=== PATIENT | female | born 1940 | race Caucasian/White ===

== ENCOUNTER 2023-12-22 20:19 | Inpatient (IN) | payer MEDICARE, SELFPAY ==
[2023-12-22] VITALS (24 sets, daily range): BP systolic 101–132; BP diastolic 53–71; PULSE 84–100; RESP 14–23; TEMP 36.4–37.8; O2SAT 95–98; BMI 36.3; BMI 28.1
--- NOTE | 2023-12-22 20:20 | ECG_ITS ---
APPROVED REPORT Exam: Resting ECG HR:104 bpm ECG Measurements Heart Rate 104 AXES DC 163 P 27 QRSd 105 QRS 16 QT 340 T 21 QTc 400 Conclusion SINUS TACHYCARDIA INFERIOR MYOCARDIAL INFARCTION , PROBABLY OLD [40+ ms Q WAVE AND/OR ST/T ABNORMALITY IN II/aVF] ABNORMAL ECG No STEMI Electronically signed by : SRIDHAR NEGRON, 12/23/2023 03:27:28
--- NOTE | 2023-12-22 20:34 | ED_ITS ---
Discharge Plan Disposition Patient Disposition: Admitted Chief Complaint: Weakness Prescriptions Prescriptions: No Action amlodipine 5 MG tablet 5 mg PO DAILY aspirin 81 MG tablet,delayed release (DR/EC) 81 mg PO DAILY pravastatin 20 MG tablet 20 mg PO DAILY benazepril 10 MG tablet 10 mg PO DAILY insulin NPH and regular human 100 UNIT/ML insulin pen 18 unit SQ DAILY sitagliptin phosphate 100 MG tablet 100 mg PO DAILY Clinical Impressions Clinical Impression: Acute UTI, Anemia, Adult failure to thrive, CULLEN (acute kidney injury), Uremia, Elevated troponin Print Language Print Language: Mongolian Discharge ED Provider: Kavon Booker General Adult HPI <RACHEL Bradley - Last Filed: 12/22/23 22:55> General Chief complaint: Weakness Stated complaint: fall Time Seen by Provider: 12/22/23 20:21 History of Present Illness HPI narrative: Patient presents after being found down. Last known well reportedly was 2 days ago. Patient herself on arrival denies chest pain fever chills hemoptysis hematochezia melena hematemesis pain anywhere difficulty breathing headache any alteration in senses. She follows all commands but appears to be globally weak. She states that the last thing that she remembers is that she sat down on the couch to watch TV and cannot recall much after that. Patient does have visible evidence of long-term self-neglect including very long fingernails very poor hygiene. Patient also has a longstanding history of incontinence and wears adult diapers. Related Data Home Medications ?Medication ?Instructions ?Recorded ?Confirmed amlodipine 5 mg tablet 5 mg PO DAILY bp 06/22/19 07/12/19 aspirin 81 mg tablet,delayed 81 mg PO DAILY Blood thinner 06/22/19 07/12/19 release benazepril 10 mg tablet 10 mg PO DAILY bp 06/22/19 07/12/19 insulin NPH-regular 70-30 U-100 18 unit SQ DAILY Diabetes 06/22/19 07/12/19 insulin 100 unit/mL subcutaneous pen pravastatin 20 mg tablet 20 mg PO DAILY Cholesterol 06/22/19 07/12/19 sitagliptin phosphate 100 mg tablet 100 mg PO DAILY Diabetes 06/22/19 07/12/19 Allergies Allergy/AdvReac Type Severity Reaction Status Date / Time No Known Allergies Allergy Verified 07/12/19 08:11 PFSH <RACHEL Bradley - Last Filed: 12/22/23 22:55> FORMERLY [facility], 1928–1983 Disclaimer: The information contained in this section may have been updated after the patient was seen, as this information can be updated by other users. Social History Smoking Status: Unknown if ever smoked alcohol intake: never current occupational status: retired Travel in the last 8 weeks: None housing: house current occupational exposures/hazards: No caffeine: Yes <RACHEL Bradley - Last Filed: 12/22/23 22:55> ROS Obtained: Yes Systems reviewed as appropriate & no additional complaints except as documented Physical Exam <RACHEL Bradley - Last Filed: 12/22/23 22:55> General General appearance: alert and in no apparent distress Head Head exam: atraumatic and normal inspection Eye Eye exam: Present normal appearance, PERRL and EOMI ENT ENT exam: Present mucous membranes dry and TM's normal bilaterally; Absent normal exam or normal oropharynx (Patient has significant extensive dental caries but no obvious abscess. Patient is profoundly dry with dry mucous membranes and oropharynx) Neck Neck exam: Present normal inspection and full ROM; Absent tenderness Respiratory Respiratory exam: Present normal lung sounds bilaterally; Absent respiratory distress or wheezes Cardiovascular Cardiovascular exam: Present regular rate, normal rhythm, normal heart sounds, +S1 and +S2 Abdominal Exam Abdominal exam: Present soft and normal bowel sounds; Absent distention, tenderness, guarding, rebound or rigidity External exam: Present other (Patient had a diarrhea and urine soaked adult diaper that was cut away. External genitalia appear to be normal with no obvious discharge) Extremities Exam Extremities exam: Present full ROM; Absent normal inspection (Patient has extraordinarily long nails with lots of chronic debris noted) or tenderness Back Exam Back exam: Present normal inspection and full ROM; Absent tenderness Neurological Exam Neurological exam: Present alert, oriented X3 and CN II-XII intact Psychiatric Psychiatric exam: Present normal affect and normal mood Skin Skin exam: Present dry and intact Medical Decision Making <RACHEL Bradley - Last Filed: 12/22/23 22:55> Medical Records Medical records reviewed: Yes I reviewed the patient's medical records. Edin Inquiry Pt receiving controlled substance: No Vital Signs: 12/22/23 20:19 12/22/23 21:34 12/22/23 23:03 Temperature 100.1 F H 99.6 F 97.6 F Temperature Source Rectal Oral Oral Pulse Rate 84 90 Pulse Rate [Left] 95 H Respiratory Rate 16 14 16 TAR Vitals Timing Pre-Blood Vitals Blood Pressure 107/61 L 127/67 Blood Pressure [Right Arm] 110/61 Blood Pressure Mean 87 Blood Pressure Mean [Right Arm] 77 Blood Pressure Source Automatic Cuff Blood Pressure Position Sitting 02 Sat by Pulse Oximetry 95 98 97 Oxygen Delivery Method Room Air Room Air 12/22/23 23:08 12/22/23 23:13 12/22/23 23:18 Temperature 97.6 F 97.5 F L 97.6 F Temperature Source Tympanic Tympanic Pulse Rate 90 89 88 Pulse Rate [Left] Respiratory Rate 16 18 17 TAR Vitals Timing 5 Minute 10 Minute 15 Minute Blood Pressure 127/66 113/64 117/59 L Blood Pressure [Right Arm] Blood Pressure Mean 86 80 78 Blood Pressure Mean [Right Arm] Blood Pressure Source Automatic Cuff Automatic Cuff Automatic Cuff Blood Pressure Position Sitting Sitting 02 Sat by Pulse Oximetry 96 97 Oxygen Delivery Method 12/22/23 23:33 Temperature 97.7 F Temperature Source Tympanic Pulse Rate 88 Pulse Rate [Left] Respiratory Rate 17 TAR Vitals Timing 30 Minute Blood Pressure 116/63 Blood Pressure [Right Arm] Blood Pressure Mean 80 Blood Pressure Mean [Right Arm] Blood Pressure Source Automatic Cuff Blood Pressure Position 02 Sat by Pulse Oximetry 97 Oxygen Delivery Method Lab Data Lab results reviewed: Yes I reviewed the patient's lab results. Lab Results 12/22/23 20:19: WBC 7.8, RBC 2.12 L, Hgb 6.5 L*, Hct 19.7 L*, MCV 92.6, MCH 30.4, MCHC 32.8, RDW 19.5 H, Plt Count 168, MPV 8.7, Neut % (Auto) 71.5, Lymph % (Auto) 23.4, [place] % (Auto) 4.2, Eos % (Auto) 0.5, Baso % (Auto) 0.3, Neut # (Auto) 5.6, Lymph # (Auto) 1.8, [place] # (Auto) 0.3, Eos # (Auto) 0.0, Baso # (Auto) 0.0, Sodium 144, Potassium 4.4, Chloride 111 H, Carbon Dioxide 17 L, A nion Gap 20.4 H, BUN 80 H, Creatinine 3.60 H, Estimated Creat Clear 14, E stimated GFR 12 L*, Est GFR ( Amer) 15 L*, Glucose 106 H, Lactate 0.9, C alcium 10.5 H, Magnesium 2.0, Total Bilirubin 0.7, AST 21, ALT 10 L, Alkaline Phosphatase 65, Total Creatine Kinase 34, Troponin I 0.07 H, Total Protein 7.2, Albumin 3.2 L, Globulin 4.0 H, Albumin/Globulin Ratio 0.8 L, Procalcitonin 0.155, Blood Type Confirm A Negative 12/22/23 20:53: Urine Color Yellow, Urine Appearance Clear, Urine pH 7.0, Ur Specific [place] 1.015, Urine Protein 2+, Urine Glucose (UA) Negative, Urine Ketones Trace, Urine Blood 2+, Urine Nitrate Negative, Urine Bilirubin Negative, Urine Urobilinogen 0.2, Ur Leukocyte Esterase 3+ A, Urine RBC 20-50, Urine WBC Tntc, Ur Squamous Epith Cells 20-50, Urine Bacteria 4+ 12/22/23 21:25: Blood Type A Negative, Antibody Screen Negative, Crossmatch (AHG) See Detail 12/22/23 22:50: Stool Occult Blood Negative 12/22/23 20:19 12/22/23 20:19 Orders (Tests/Meds): ED MEDICATIONS Generic Name Dose Route Start Last Admin Trade Name Freq PRN Reason Stop Dose Admin Sodium Chloride 250 mls @ 25 mls/hr 12/22/23 21:15 12/22/23 23:03 Sod Chlor 0.9% 250ml Bag IV 12/23/23 21:14 25 mls/hr .Q10H CECELIA Administration Sodium Chloride 10 ml 12/22/23 22:27 Sodium Chloride 0.9% 10ml Vial IV 01/21/24 22:26 NEEDED PRN dilute protonix Discontinued Medications Generic Name Dose Route Start Last Admin Trade Name Freq PRN Reason Stop Dose Admin Sodium Chloride 1,000 mls @ 999 mls/hr 12/22/23 20:34 12/22/23 20:58 Sod Chlor 0.9% 1000ml Bag IV 12/22/23 21:34 999 mls/hr .Q1H1M ONE Administration Ceftriaxone Sodium 1 gm/ 50 mls @ 100 mls/hr 12/22/23 22:30 12/22/23 22:44 Sodium Chloride IV 12/22/23 22:59 100 mls/hr ONCE ONE Administration Pantoprazole Sodium 40 mg 12/22/23 22:27 12/22/23 22:44 Pantoprazole 40mg Vial IV 12/22/23 22:28 40 mg ONCE ONE Administration ORDERS Category Date Time Status Transfuse RBC's [Red Blood Cells] Stat BBK 12/22/23 21:25 Results Type and Screen Stat BBK 12/22/23 21:[address] abdomen pelvis wo con Stat Cat Scan 12/22/23 22:[address] chest wo con Stat Cat Scan 12/22/23 22:[address] head/brain wo con Stat Cat Scan 12/22/23 20:35 Completed POCUS Point of Care (ER Only) Stat Exams 12/22/23 22:50 Taken CBC w/Auto Diff [Complete Blood Count Auto Diff] Stat Lab 12/22/23 20:19 Completed CK [Creatine Kinase] Stat Lab 12/22/23 20:19 Completed CMP [Comprehensive Metabolic Panel] Stat Lab 12/22/23 20:19 Completed Lactic Acid Stat Lab 12/22/23 20:19 Completed Magnesium Stat Lab 12/22/23 20:19 Completed Occult Blood,Stool Stat Lab 12/22/23 22:50 Completed Procalcitonin Stat Lab 12/22/23 20:19 Completed Trop I [Troponin I] Stat Lab 12/22/23 20:19 Completed Troponin I Q3H Lab 12/22/23 23:37 Received Troponin I Q3H Lab 12/23/23 02:45 Ordered UA [Urinalysis and Microscopic] Stat Lab 12/22/23 20:53 Completed Urine Culture Stat Micro 12/22/23 20:53 Received HEART Score History (anamnesis): Slightly suspicious ECG: Normal Age: >65 years Risk factors: Atherosclerosis history Troponin: </= normal limit HEART Score: 4 Medical Decision Narrative: In summary patient is a 83-year-old female who presents to the emergency department for evaluation of found down and acute functional decline. Patient is initially normotensive at 110/61 with a heart rate of 95 satting at 95% on room air breathing 16 times a minute upon arrival, with a temperature of 100.1 on arrival. Physical exam shows evidence of longstanding self-neglect but acutely shows that patient has been stuck fortunately on a couch instead of the floor for at least 2 days. Patient also has chronic right sided frozen shoulder that is known with limited passive and active range of motion due to that as well. Patient presented with wearing and adult diaper to overflowing of both urine and stool however it was of normal color and caliber and no evidence of melena or hematochezia. Physical exam reveals some pressure injury to her buttocks along with some skin breakdown from sitting in a wet environment for 2 days but no obvious other trauma ecchymosis or abrasions. Patient moves all 4 extremities but is extraordinarily weak with no focal neurologic findings. Differential diagnosis includes CVA versus ACS versus PE versus infection etc. Initial workup will be conducted with hematologic labs CT scan of the head without contrast plain film chest x-ray twelve-lead EKG catheterized urine specimen. Initial interventions include crystalloid bolus Tylenol type and screen. Initial workup reviewed by me shows that the CT scan of her head via my informal interpretation prior to radiology read shows no acute processes, patient actually has a creatinine of 3.6 with no known recent normal as we have no data to review with a BUN of 80 and a GFR of 12 initial troponin of 0.07 which is likely secondary to renal failure and her urinary dipstick showed 2+ blood with 3+ leukocyte esterase but negative nitrites and her microscopic exam showed 20-50 red blood cells too numerous to count white cells and 4+ bacteria. Stool for occult blood is still pending. CT scan of chest and abdomen have been ordered without contrast given her renal function. Upon repeat evaluation patient is actually more interactive. Given this no evidence of hemodynamic instability and no evidence of GI bleed, despite her renal failure believe that this is likely acute on chronic as she has no electrolyte abnormalities including normal potassium normal magnesium thus no evidence for need of emergent dialysis. CT scan of the chest abdomen pelvis is pending at the time of handoff to Dr. Bermudez 2300 hrs. <Kavon Booker MD - Last Filed: 12/22/23 23:11> Vital Signs: 12/22/23 20:19 12/22/23 21:34 12/22/23 23:03 Temperature 100.1 F H 99.6 F 97.6 F Temperature Source Rectal Oral Oral Pulse Rate 84 90 Pulse Rate [Left] 95 H Respiratory Rate 16 14 16 TAR Vitals Timing Pre-Blood Vitals Blood Pressure 107/61 L 127/67 Blood Pressure [Right Arm] 110/61 Blood Pressure Mean 87 Blood Pressure Mean [Right Arm] 77 Blood Pressure Source Automatic Cuff Blood Pressure Position Sitting 02 Sat by Pulse Oximetry 95 98 97 Oxygen Delivery Method Room Air Room Air 12/22/23 23:08 12/22/23 23:13 12/22/23 23:18 Temperature 97.6 F 97.5 F L 97.6 F Temperature Source Tympanic Tympanic Pulse Rate 90 89 88 Pulse Rate [Left] Respiratory Rate 16 18 17 TAR Vitals Timing 5 Minute 10 Minute 15 Minute Blood Pressure 127/66 113/64 117/59 L Blood Pressure [Right Arm] Blood Pressure Mean 86 80 78 Blood Pressure Mean [Right Arm] Blood Pressure Source Automatic Cuff Automatic Cuff Automatic Cuff Blood Pressure Position Sitting Sitting 02 Sat by Pulse Oximetry 96 97 Oxygen Delivery Method 12/22/23 23:33 Temperature 97.7 F Temperature Source Tympanic Pulse Rate 88 Pulse Rate [Left] Respiratory Rate 17 TAR Vitals Timing 30 Minute Blood Pressure 116/63 Blood Pressure [Right Arm] Blood Pressure Mean 80 Blood Pressure Mean [Right Arm] Blood Pressure Source Automatic Cuff Blood Pressure Position 02 Sat by Pulse Oximetry 97 Oxygen Delivery Method Lab Data Lab Results 12/22/23 20:19: WBC 7.8, RBC 2.12 L, Hgb 6.5 L*, Hct 19.7 L*, MCV 92.6, MCH 30.4, MCHC 32.8, RDW 19.5 H, Plt Count 168, MPV 8.7, Neut % (Auto) 71.5, Lymph % (Auto) 23.4, [place] % (Auto) 4.2, Eos % (Auto) 0.5, Baso % (Auto) 0.3, Neut # (Auto) 5.6, Lymph # (Auto) 1.8, [place] # (Auto) 0.3, Eos # (Auto) 0.0, Baso # (Auto) 0.0, Sodium 144, Potassium 4.4, Chloride 111 H, Carbon Dioxide 17 L, A nion Gap 20.4 H, BUN 80 H, Creatinine 3.60 H, Estimated Creat Clear 14, E stimated GFR 12 L*, Est GFR ( Amer) 15 L*, Glucose 106 H, Lactate 0.9, C alcium 10.5 H, Magnesium 2.0, Total Bilirubin 0.7, AST 21, ALT 10 L, Alkaline Phosphatase 65, Total Creatine Kinase 34, Troponin I 0.07 H, Total Protein 7.2, Albumin 3.2 L, Globulin 4.0 H, Albumin/Globulin Ratio 0.8 L, Procalcitonin 0.155, Blood Type Confirm A Negative 12/22/23 20:53: Urine Color Yellow, Urine Appearance Clear, Urine pH 7.0, Ur Specific [place] 1.015, Urine Protein 2+, Urine Glucose (UA) Negative, Urine Ketones Trace, Urine Blood 2+, Urine Nitrate Negative, Urine Bilirubin Negative, Urine Urobilinogen 0.2, Ur Leukocyte Esterase 3+ A, Urine RBC 20-50, Urine WBC Tntc, Ur Squamous Epith Cells 20-50, Urine Bacteria 4+ 12/22/23 21:25: Blood Type A Negative, Antibody Screen Negative, Crossmatch (AHG) See Detail 12/22/23 22:50: Stool Occult Blood Negative Orders (Tests/Meds): ED MEDICATIONS Generic Name Dose Route Start Last Admin Trade Name Freq PRN Reason Stop Dose Admin Sodium Chloride 250 mls @ 25 mls/hr 12/22/23 21:15 12/22/23 23:03 Sod Chlor 0.9% 250ml Bag IV 12/23/23 21:14 25 mls/hr .Q10H CECELIA Administration Sodium Chloride 10 ml 12/22/23 22:27 Sodium Chloride 0.9% 10ml Vial IV 01/21/24 22:26 NEEDED PRN dilute protonix Discontinued Medications Generic Name Dose Route Start Last Admin Trade Name Freq PRN Reason Stop Dose Admin Sodium Chloride 1,000 mls @ 999 mls/hr 12/22/23 20:34 12/22/23 20:58 Sod Chlor 0.9% 1000ml Bag IV 12/22/23 21:34 999 mls/hr .Q1H1M ONE Administration Ceftriaxone Sodium 1 gm/ 50 mls @ 100 mls/hr 12/22/23 22:30 12/22/23 22:44 Sodium Chloride IV 12/22/23 22:59 100 mls/hr ONCE ONE Administration Pantoprazole Sodium 40 mg 12/22/23 22:27 12/22/23 22:44 Pantoprazole 40mg Vial IV 12/22/23 22:28 40 mg ONCE ONE Administration ORDERS Category Date Time Status Transfuse RBC's [Red Blood Cells] Stat BBK 12/22/23 21:25 Results Type and Screen Stat BBK 12/22/23 21:[address] abdomen pelvis wo con Stat Cat Scan 12/22/23 22:[address] chest wo con Stat Cat Scan 12/22/23 22:[address] head/brain wo con Stat Cat Scan 12/22/23 20:35 Completed POCUS Point of Care (ER Only) Stat Exams 12/22/23 22:50 Taken CBC w/Auto Diff [Complete Blood Count Auto Diff] Stat Lab 12/22/23 20:19 Completed CK [Creatine Kinase] Stat Lab 12/22/23 20:19 Completed CMP [Comprehensive Metabolic Panel] Stat Lab 12/22/23 20:19 Completed Lactic Acid Stat Lab 12/22/23 20:19 Completed Magnesium Stat Lab 12/22/23 20:19 Completed Occult Blood,Stool Stat Lab 12/22/23 22:50 Completed Procalcitonin Stat Lab 12/22/23 20:19 Completed Trop I [Troponin I] Stat Lab 12/22/23 20:19 Completed Troponin I Q3H Lab 12/22/23 23:37 Received Troponin I Q3H Lab 12/23/23 02:45 Ordered UA [Urinalysis and Microscopic] Stat Lab 12/22/23 20:53 Completed Urine Culture Stat Micro 12/22/23 20:53 Received ECG Data Tracing #1: Independently turned by me rate is 104, rhythm is regular, axis normal, no ST elevation in anatomical contiguous leads, QTc 400 and HEART Score HEART Score: 4 Medical Decision Narrative: In summary patient is a 83-year-old female who presents to the emergency department for evaluation of found down and acute functional decline. Patient is initially normotensive at 110/61 with a heart rate of 95 satting at 95% on room air breathing 16 times a minute upon arrival, with a temperature of 100.1 on arrival. Physical exam shows evidence of longstanding self-neglect but acutely shows that patient has been stuck fortunately on a couch instead of the floor for at least 2 days. Patient also has chronic right sided frozen shoulder that is known with limited passive and active range of motion due to that as well. Patient presented with wearing and adult diaper to overflowing of both urine and stool however it was of normal color and caliber and no evidence of melena or hematochezia. Physical exam reveals some pressure injury to her buttocks along with some skin breakdown from sitting in a wet environment for 2 days but no obvious other trauma ecchymosis or abrasions. Patient moves all 4 extremities but is extraordinarily weak with no focal neurologic findings. Differential diagnosis includes CVA versus ACS versus PE versus infection etc. Initial workup will be conducted with hematologic labs CT scan of the head without contrast plain film chest x-ray twelve-lead EKG catheterized urine specimen. Initial interventions include crystalloid bolus Tylenol type and screen. Initial workup reviewed by me shows that the CT scan of her head via my informal interpretation prior to radiology read shows no acute processes, patient actually has a creatinine of 3.6 with no known recent normal as we have no data to review with a BUN of 80 and a GFR of 12 initial troponin of 0.07 which is likely secondary to renal failure and her urinary dipstick showed 2+ blood with 3+ leukocyte esterase but negative nitrites and her microscopic exam showed 20-50 red blood cells too numerous to count white cells and 4+ bacteria. Stool for occult blood is still pending. CT scan of chest and abdomen have been ordered without contrast given her renal function. Upon repeat evaluation patient is actually more interactive. Given this no evidence of hemodynamic instability and no evidence of GI bleed, despite her renal failure believe that this is likely acute on chronic as she has no electrolyte abnormalities including normal potassium normal magnesium thus no evidence for need of emergent dialysis. CT scan of the chest abdomen pelvis is pending at the time of handoff to Dr. Bermudez 2300 hrs. Kavon Booker: I was consulted by the LORNA, and we discussed the complexity of the problems being addressed. I approved the treatment and management plan for this patient's care in the emergency department, thus performing a substantive portion of the medical decision making. Patient is complicated, has failure to thrive. Upon my questioning she has no signs of bleeding with no hematemesis, no melena. She sat down on the couch 48 hours ago and was unable to stand up. She does have anemia which is being transfused. She has no signs of active bleeding currently, no significant leukocytosis, she has an elevated creatinine compared to her baseline for multiple years ago and has some uremia however has no emergent indications for dialysis at this time. Uremia could be due to her CULLEN on CKD or smoldering upper GI bleed for which Protonix was administered. Initial troponin is elevated in the setting of elevated creatinine. Urinalysis consistent with infection however there is hematuria for which we are getting noncontrasted CT scan of the abdomen to ensure that she does not have a stone which would preclude her from being able to be admitted at this institution. She has been covered appropriately with antibiotics. Judicious fluid administration with 1 L crystalloid and 2 units PRBC given that she has pitting edema of her lower extremities. Sepsis bolus deferred given likely tenuous volume status in the setting of elevated creatinine. [id number] ultrasound at bedside shows that she has normal to slightly decreased ejection fraction although suboptimal views were obtained. CT is conducted and pending at time of transfer care to the oncoming physician, Dr. Bermudez. <Terrence Bermudez MD - Last Filed: 12/23/23 00:43> Vital Signs: 12/22/23 20:19 12/22/23 21:34 12/22/23 23:03 Temperature 100.1 F H 99.6 F 97.6 F Temperature Source Rectal Oral Oral Pulse Rate 84 90 Pulse Rate [Left] 95 H Respiratory Rate 16 14 16 TAR Vitals Timing Pre-Blood Vitals Blood Pressure 107/61 L 127/67 Blood Pressure [Right Arm] 110/61 Blood Pressure Mean 87 Blood Pressure Mean [Right Arm] 77 Blood Pressure Source Automatic Cuff Blood Pressure Position Sitting 02 Sat by Pulse Oximetry 95 98 97 Oxygen Delivery Method Room Air Room Air 12/22/23 23:08 12/22/23 23:13 12/22/23 23:18 Temperature 97.6 F 97.5 F L 97.6 F Temperature Source Tympanic Tympanic Pulse Rate 90 89 88 Pulse Rate [Left] Respiratory Rate 16 18 17 TAR Vitals Timing 5 Minute 10 Minute 15 Minute Blood Pressure 127/66 113/64 117/59 L Blood Pressure [Right Arm] Blood Pressure Mean 86 80 78 Blood Pressure Mean [Right Arm] Blood Pressure Source Automatic Cuff Automatic Cuff Automatic Cuff Blood Pressure Position Sitting Sitting 02 Sat by Pulse Oximetry 96 97 Oxygen Delivery Method 12/22/23 23:33 Temperature 97.7 F Temperature Source Tympanic Pulse Rate 88 Pulse Rate [Left] Respiratory Rate 17 TAR Vitals Timing 30 Minute Blood Pressure 116/63 Blood Pressure [Right Arm] Blood Pressure Mean 80 Blood Pressure Mean [Right Arm] Blood Pressure Source Automatic Cuff Blood Pressure Position 02 Sat by Pulse Oximetry 97 Oxygen Delivery Method Lab Data Lab Results 12/22/23 20:19: WBC 7.8, RBC 2.12 L, Hgb 6.5 L*, Hct 19.7 L*, MCV 92.6, MCH 30.4, MCHC 32.8, RDW 19.5 H, Plt Count 168, MPV 8.7, Neut % (Auto) 71.5, Lymph % (Auto) 23.4, [place] % (Auto) 4.2, Eos % (Auto) 0.5, Baso % (Auto) 0.3, Neut # (Auto) 5.6, Lymph # (Auto) 1.8, [place] # (Auto) 0.3, Eos # (Auto) 0.0, Baso # (Auto) 0.0, Sodium 144, Potassium 4.4, Chloride 111 H, Carbon Dioxide 17 L, A nion Gap 20.4 H, BUN 80 H, Creatinine 3.60 H, Estimated Creat Clear 14, E stimated GFR 12 L*, Est GFR ( Amer) 15 L*, Glucose 106 H, Lactate 0.9, C alcium 10.5 H, Magnesium 2.0, Total Bilirubin 0.7, AST 21, ALT 10 L, Alkaline Phosphatase 65, Total Creatine Kinase 34, Troponin I 0.07 H, Total Protein 7.2, Albumin 3.2 L, Globulin 4.0 H, Albumin/Globulin Ratio 0.8 L, Procalcitonin 0.155, Blood Type Confirm A Negative 12/22/23 20:53: Urine Color Yellow, Urine Appearance Clear, Urine pH 7.0, Ur Specific [place] 1.015, Urine Protein 2+, Urine Glucose (UA) Negative, Urine Ketones Trace, Urine Blood 2+, Urine Nitrate Negative, Urine Bilirubin Negative, Urine Urobilinogen 0.2, Ur Leukocyte Esterase 3+ A, Urine RBC 20-50, Urine WBC Tntc, Ur Squamous Epith Cells 20-50, Urine Bacteria 4+ 12/22/23 21:25: Blood Type A Negative, Antibody Screen Negative, Crossmatch (AHG) See Detail 12/22/23 22:50: Stool Occult Blood Negative Orders (Tests/Meds): ED MEDICATIONS Generic Name Dose Route Start Last Admin Trade Name Freq PRN Reason Stop Dose Admin Sodium Chloride 250 mls @ 25 mls/hr 12/22/23 21:15 12/22/23 23:03 Sod Chlor 0.9% 250ml Bag IV 12/23/23 21:14 25 mls/hr .Q10H CECELIA Administration Sodium Chloride 10 ml 12/22/23 22:27 Sodium Chloride 0.9% 10ml Vial IV 01/21/24 22:26 NEEDED PRN dilute protonix Discontinued Medications Generic Name Dose Route Start Last Admin Trade Name Freq PRN Reason Stop Dose Admin Sodium Chloride 1,000 mls @ 999 mls/hr 12/22/23 20:34 12/22/23 20:58 Sod Chlor 0.9% 1000ml Bag IV 12/22/23 21:34 999 mls/hr .Q1H1M ONE Administration Ceftriaxone Sodium 1 gm/ 50 mls @ 100 mls/hr 12/22/23 22:30 12/22/23 22:44 Sodium Chloride IV 12/22/23 22:59 100 mls/hr ONCE ONE Administration Pantoprazole Sodium 40 mg 12/22/23 22:27 12/22/23 22:44 Pantoprazole 40mg Vial IV 12/22/23 22:28 40 mg ONCE ONE Administration ORDERS Category Date Time Status Transfuse RBC's [Red Blood Cells] Stat BBK 12/22/23 21:25 Results Type and Screen Stat BBK 12/22/23 21:[address] abdomen pelvis wo con Stat Cat Scan 12/22/23 22:[address] chest wo con Stat Cat Scan 12/22/23 22:[address] head/brain wo con Stat Cat Scan 12/22/23 20:35 Completed POCUS Point of Care (ER Only) Stat Exams 12/22/23 22:50 Taken CBC w/Auto Diff [Complete Blood Count Auto Diff] Stat Lab 12/22/23 20:19 Completed CK [Creatine Kinase] Stat Lab 12/22/23 20:19 Completed CMP [Comprehensive Metabolic Panel] Stat Lab 12/22/23 20:19 Completed Lactic Acid Stat Lab 12/22/23 20:19 Completed Magnesium Stat Lab 12/22/23 20:19 Completed Occult Blood,Stool Stat Lab 12/22/23 22:50 Completed Procalcitonin Stat Lab 12/22/23 20:19 Completed Trop I [Troponin I] Stat Lab 12/22/23 20:19 Completed Troponin I Q3H Lab 12/22/23 23:37 Received Troponin I Q3H Lab 12/23/23 02:45 Ordered UA [Urinalysis and Microscopic] Stat Lab 12/22/23 20:53 Completed Urine Culture Stat Micro 12/22/23 20:53 Received HEART Score HEART Score: 4 Medical Decision Narrative: In summary patient is a 83-year-old female who presents to the emergency department for evaluation of found down and acute functional decline. Patient is initially normotensive at 110/61 with a heart rate of 95 satting at 95% on room air breathing 16 times a minute upon arrival, with a temperature of 100.1 on arrival. Physical exam shows evidence of longstanding self-neglect but acutely shows that patient has been stuck fortunately on a couch instead of the floor for at least 2 days. Patient also has chronic right sided frozen shoulder that is known with limited passive and active range of motion due to that as well. Patient presented with wearing and adult diaper to overflowing of both urine and stool however it was of normal color and caliber and no evidence of melena or hematochezia. Physical exam reveals some pressure injury to her buttocks along with some skin breakdown from sitting in a wet environment for 2 days but no obvious other trauma ecchymosis or abrasions. Patient moves all 4 extremities but is extraordinarily weak with no focal neurologic findings. Differential diagnosis includes CVA versus ACS versus PE versus infection etc. Initial workup will be conducted with hematologic labs CT scan of the head without contrast plain film chest x-ray twelve-lead EKG catheterized urine specimen. Initial interventions include crystalloid bolus Tylenol type and screen. Initial workup reviewed by me shows that the CT scan of her head via my informal interpretation prior to radiology read shows no acute processes, patient actually has a creatinine of 3.6 with no known recent normal as we have no data to review with a BUN of 80 and a GFR of 12 initial troponin of 0.07 which is likely secondary to renal failure and her urinary dipstick showed 2+ blood with 3+ leukocyte esterase but negative nitrites and her microscopic exam showed 20-50 red blood cells too numerous to count white cells and 4+ bacteria. Stool for occult blood is still pending. CT scan of chest and abdomen have been ordered without contrast given her renal function. Upon repeat evaluation patient is actually more interactive. Given this no evidence of hemodynamic instability and no evidence of GI bleed, despite her renal failure believe that this is likely acute on chronic as she has no electrolyte abnormalities including normal potassium normal magnesium thus no evidence for need of emergent dialysis. CT scan of the chest abdomen pelvis is pending at the time of handoff to Dr. Bermudez 2300 hrs. Kavon Booker: I was consulted by the LORNA, and we discussed the complexity of the problems being addressed. I approved the treatment and management plan for this patient's care in the emergency department, thus performing a substantive portion of the medical decision making. Patient is complicated, has failure to thrive. Upon my questioning she has no signs of bleeding with no hematemesis, no melena. She sat down on the couch 48 hours ago and was unable to stand up. She does have anemia which is being transfused. She has no signs of active bleeding currently, no significant leukocytosis, she has an elevated creatinine compared to her baseline for multiple years ago and has some uremia however has no emergent indications for dialysis at this time. Uremia could be due to her CULLEN on CKD or smoldering upper GI bleed for which Protonix was administered. Initial troponin is elevated in the setting of elevated creatinine. Urinalysis consistent with infection however there is hematuria for which we are getting noncontrasted CT scan of the abdomen to ensure that she does not have a stone which would preclude her from being able to be admitted at this institution. She has been covered appropriately with antibiotics. Judicious fluid administration with 1 L crystalloid and 2 units PRBC given that she has pitting edema of her lower extremities. Sepsis bolus deferred given likely tenuous volume status in the setting of elevated creatinine. [id number] ultrasound at bedside shows that she has normal to slightly decreased ejection fraction although suboptimal views were obtained. CT is conducted and pending at time of transfer care to the oncoming physician, Dr. Bermudez. Aidan: Upon my assumption of care patient is stable. PRBCs are being transfused. CT imaging pending. I reviewed labs and agree with the initial assessment and plan from the primary providers. CT imaging was personally interpreted, I do not appreciate acute intracranial abnormality or intrathoracic abnormality. I do appreciate intrarenal stones on the CT abdomen pelvis, the stones are within the kidney and are not causing obstruction. At this time I believe patient is appropriate for admission to the hospital for continued management of acute on chronic CKD, anemia, urinary tract infection, and debility. I discussed this with the hospitalist who accepted the patient for admission. Immediately after the patient was accepted for admission, it was noted by nursing staff that the PRBC transfusion had infiltrated. Patient had received approximately half of the transfusion, and is unclear exactly how much of it infiltrated, however patient has a large hematoma on the right upper extremity. Patient is neurovascularly intact distally with bounding pulses and brisk capillary refill. There is no compromise from this hematoma. Pressure dressing and warm compress was applied at the recommendation of pharmacy. Patient has other IV access that is functioning appropriately for continued transfusion which has been restarted. Patient admitted in stable condition. Critical Care <RACHEL Bradley - Last Filed: 12/22/23 22:55> Critical Care Time Critical Care Time: No
--- NOTE | 2023-12-22 20:35 | CT_ITS ---
PROCEDURE INFORMATION: Exam: CT Head Without Contrast Exam date and time: 12/22/2023 9:07 PM Age: 83 years old Clinical indication: Other: Acute functional decline, found down; Patient HX: Limited history TECHNIQUE: Imaging protocol: Computed tomography of the head without contrast. Radiation optimization: All CT scans at this facility use at least one of these dose optimization techniques: automated exposure control; mA and/or kV adjustment per patient size (includes targeted exams where dose is matched to clinical indication); or iterative reconstruction. COMPARISON: CT HEAD/BRAIN WO CON 04/19/2019 2:27 PM FINDINGS: Brain: There is moderate diffuse cerebral volume loss present. Multiple subcortical and deep hypoattenuating white matter foci are present, likely related to small vessel senescent changes and can also be seen with prior infectious / inflammatory insult, or prior traumatic events. No hyperattenuating foci are identified to suggest acute intracranial hemorrhage. Cerebral ventricles: No ventriculomegaly. Paranasal sinuses: Visualized sinuses are unremarkable. No fluid levels. Mastoid air cells: Visualized mastoid air cells are well aerated. Bones: Unremarkable. No acute fracture. Soft tissues: Unremarkable. IMPRESSION: 1. Multiple subcortical and deep hypoattenuating white matter foci are present, likely related to small vessel senescent changes and can also be seen with prior infectious / inflammatory insult, or prior traumatic events. 2. No hyperattenuating foci are identified to suggest acute intracranial hemorrhage.
[2023-12-22 20:49] LABS: Basophils % 0.3 % (0.1-2.0); Eosinophils % 0.5 % (0.1-12.0); Lymphocytes # 1.8 K/mm3 (0.7-4.5); Lymphocytes % 23.4 % (10-50); Mean Corpuscular HGB Conc 32.8 g/dL (31.8-35.4); Mean Corpuscular Hemoglobin 30.4 pg (27.0-31.2); Mean Corpuscular Volume 92.6 fl (81-99); Mean Platelet Volume 8.7 fl (7.4-10.4); Monocytes # 0.3 K/mm3 (0.1-1.0); Monocytes % 4.2 % (1.7-9.3); Neutrophils # 5.6 K/mm3 (1.8-7.8); Neutrophils % 71.5 % (37.0-80.0); Platelet Count 168 K/mm3 (142-424); Red Blood Count 2.12 M/mm3 (4.20-5.40); Red Cell Distribution Width 19.5 % (11.5-17.5); White Blood Count 7.8 K/mm3 (4.8-10.8)
[2023-12-22 20:53] LABS: Albumin Level 3.2 g/dl (3.5-5.0); Chloride 111 mmol/L (98-107); Potassium 4.4 mmoL/L (3.5-5.1); Sodium 144 mmol/L (136-145)
[2023-12-22 20:55] LABS: Anion Gap 20.4 mEq/L (5-15); Carbon Dioxide 17 mmol/L (22.0-30.0); Estimated Glomerular Filt Rate 12 ml/min (>60); GFR (African American) 15 ML/MIN (>60); Lactic Acid 0.9 mmol/L (0.7-2.1)
[2023-12-22 20:55] LABS: Microscopic, Urine URINE MICROSCOPIC (MICROSCOPIC)
[2023-12-22 20:56] LABS: Alanine Aminotransferase 10 U/L (12-78); Albumin/Globulin Ratio 0.8 (1.1-1.8); Alkaline Phosphatase 65 U/L (38-126); Aspartate Amino Transferase 21 U/L (14-36); Bilirubin,Total 0.7 mg/dl (0.2-1.3); Calcium 10.5 mg/dl (8.4-10.2); Glucose 106 mg/dl (74-100); Total Protein,Serum 7.2 g/dl (6.3-8.2)
[2023-12-22 20:56] LABS: Appearance,Urine CLEAR (Clear); Blood, Urine 2+ (Negative); Color,Urine YELLOW (Yellow); Glucose,Urine (UA) Negative (Negative); Ketones,Urine TRACE (Negative); Leukocyte Esterase,Urine 3+ (Negative); Nitrate,Urine Negative (Negative); Protein,Urine 2+ (Negative); Specific Gravity, Urine 1.015 (1.005-1.030); Urobilinogen,Urine 0.2 EU/dl (0.2)
[2023-12-22] MEDS: 0.9 % SODIUM CHLORIDE 1000ML 1,000 ML 999 ML IV (20:58)
[2023-12-22 21:05] LABS: Hematocrit 19.7 % (37.0-47.0); Hemoglobin 6.5 g/dL (12.2-16.2)
--- NOTE | 2023-12-22 21:05 | PC.NURSE ---
Reported Critical lab value hgb 6.5, hct 19.7 to RACHEL Webster at this time
[2023-12-22 21:12] LABS: Bilirubin,Urine Negative (Negative)
[2023-12-22 21:13] LABS: Blood Urea Nitrogen 80 mg/dl (7-17); Creatinine Clearance Estimated 14 mL/min (50-200)
[2023-12-22 21:24] LABS: RBC,Urine 20-50 #/hpf (0-3); Squamous Epithelial Cell,Urine 20-50 #/hpf (0-5); WBC,Urine TNTC #/hpf (0-3)
--- NOTE | 2023-12-22 21:24 | PC.NURSE ---
Type and screen drawn and witnessed by lab
[2023-12-22 21:25] LABS: Bacteria,Urine 4+ /lpf
[2023-12-22 22:02] LABS: Procalcitonin 0.155 ng/mL (0.0-2.0)
[2023-12-22 22:13] LABS: Creatine Kinase 34 U/L (30-135)
--- NOTE | 2023-12-22 22:22 | CT_ITS ---
PROCEDURE INFORMATION: Exam: CT Chest Without Contrast; Diagnostic Exam date and time: 12/22/2023 10:37 PM Age: 83 years old Clinical indication: Injury or trauma; Fall; Other: Found down TECHNIQUE: Imaging protocol: Diagnostic computed tomography of the chest without contrast. Radiation optimization: All CT scans at this facility use at least one of these dose optimization techniques: automated exposure control; mA and/or kV adjustment per patient size (includes targeted exams where dose is matched to clinical indication); or iterative reconstruction. COMPARISON: CT CHEST WO CON 12/22/2023 10:37 PM FINDINGS: Thyroid: Simple cysts left thyroid lobe measures 3.8 cm. Lungs: Mild bibasilar atelectasis. Pleural spaces: Tiny right pleural effusion. Heart: Unremarkable. No cardiomegaly. No pericardial effusion. Coronary arteries: Three-vessel coronary artery calcifications. Lymph nodes: Unremarkable. No enlarged lymph nodes. Vasculature: Unremarkable. No aortic aneurysm. Gallbladder and biliary ducts: There has been a cholecystectomy. Bones/joints: Unremarkable. No acute fracture. Soft tissues: Chest wall subcutaneous tissues and musculature appear unremarkable. IMPRESSION: 1. Tiny right pleural effusion. Mild bibasilar atelectasis. 2. No acute abnormalities are identified. COMMENTS: Consistent with the [employer]'s Incidental Findings Committee white paper (J Am Neel Radiol 2015): In patients aged 35 years and older with an incidental thyroid nodule equal to or greater than 1.[address], MRI or extrathyroidal US, further evaluation with dedicated thyroid US is recommended for patients with normal life expectancy and without comorbidities. For smaller nodules without suspicious features, no further evaluation or follow up is recommended.
--- NOTE | 2023-12-22 22:23 | CT_ITS ---
PROCEDURE INFORMATION: Exam: CT Abdomen And Pelvis Without Contrast Exam date and time: 12/22/2023 10:40 PM Age: 83 years old Clinical indication: Other: Hematuria; Additional info: Found down, hematuria TECHNIQUE: Imaging protocol: Computed tomography of the abdomen and pelvis without contrast. Radiation optimization: All CT scans at this facility use at least one of these dose optimization techniques: automated exposure control; mA and/or kV adjustment per patient size (includes targeted exams where dose is matched to clinical indication); or iterative reconstruction. COMPARISON: CR XR PELVIS 1-2V 04/19/2019 2:37 PM FINDINGS: Tubes, catheters and devices: Larry catheter is present. Lungs: See Pleural spaces finding. Pleural spaces: Tiny right pleural effusion mild right basilar atelectasis. Coronary arteries: Three-vessel coronary artery calcifications. Liver: The liver appears within normal limits. Gallbladder and biliary ducts: There has been a cholecystectomy. Pancreas: The pancreas is normal. Spleen: Spleen is at the upper limits of normal in size. Adrenal glands: The adrenal glands appear within normal limits. Kidneys and ureters: Simple cyst left kidney upper pole measures 2 cm. There are a few renal vascular calcifications identified. 2 mm punctate nonobstructing stone right kidney mid zone. Stomach and bowel: The stomach appears within normal limits. No wall thickening or inflammatory change. Appendix: No evidence of appendicitis. Intraperitoneal space: Unremarkable. No free air. No significant fluid collection. Vasculature: Moderate atherosclerotic calcifications of the aorta. Lymph nodes: Unremarkable. No pathologically enlarged lymph nodes are identified. Urinary bladder: Bladder is otherwise normal. There is a small amount of intraluminal air consistent with instrumentation. Reproductive: The uterus and adnexal structures appear normal. Bones/joints: Large right glenohumeral joint effusion. Soft tissues: Unremarkable. Other findings: Partially visualized simple appearing left thyroid cyst 4.1 cm. IMPRESSION: 1. No acute abnormalities are identified. There are a few renal vascular calcifications identified. 2 mm punctate nonobstructing stone right kidney mid zone. 2. Tiny right pleural effusion mild right basilar atelectasis. 3. Large right glenohumeral joint effusion. 4. Partially visualized simple appearing left thyroid cyst 4.1 cm. 5. Spleen is at the upper limits of normal in size. COMMENTS: Consistent with the [employer]'s Incidental Findings Committee white paper (J Am Neel Radiol 2018): Any incidental renal lesion less than 1 cm or classified as too small to characterize, or any incidental cystic renal lesion characterized as simple-appearing, is likely benign. No follow-up imaging is recommended for these lesions per consensus recommendations based on imaging criteria.
[2023-12-22 22:26] LABS: Troponin I 0.07 ng/ml (0.00-0.034)
[2023-12-22] MEDS: PANTOPRAZOLE 40MG VIAL 40 MG IV (22:44)
[2023-12-22] MEDS: CEFTRIAXONE 1 GM 1 GM in 0.9 % SODIUM CHLORIDE 50 ML IV (22:44)
[2023-12-22] MEDS: 0.9 % SODIUM CHLORIDE 250 ML 25 ML IV (23:03)
[2023-12-22 23:10] LABS: Occult Blood,Stool Negative (Negative)
[2023-12-23] VITALS (28 sets, daily range): BP systolic 120–158; BP diastolic 52–82; PULSE 81–99; RESP 15–21; TEMP 36.3–37; O2SAT 96–100; BMI 27.8; BMI 26.9
--- NOTE | 2023-12-23 00:04 | PC.NURSE ---
spoke with Zeina at [facility] at this time regarding pts IV infiltrating with PRBC's infusing. Zeina states she can find find any specific recommendation on UTD information. She states we can do either a warm or cold compress.
[2023-12-23 00:06] LABS: Troponin I 0.06 ng/ml (0.00-0.034)
--- NOTE | 2023-12-23 00:29 | PC.NURSE ---
At 2357 this RN went into pt room because the pump was beeping. Pt had a large area of infiltration on the R upper arm. The IV was placed via US by and had ran a bag of fluids with no issue. Pt has warm compresses and is wrapped in an CATE bandage at this time. and Scott Sup notified. Blood restarted at 0024.
--- NOTE | 2023-12-23 00:47 | PC.NURSE ---
Report given to DAYANA Dykes
--- NOTE | 2023-12-23 00:59 | PC.NURSE ---
Patient arrived to floor via stretcher from ED at 00:57.
--- NOTE | 2023-12-23 02:33 | P.HP_ITS ---
History of Present Illness *Admission Date: 12/23/23 *Reason for visit:: Weakness, confusion, renal failure, anemia *History of present illness: The patient who had not been contacted for 2 days I was told the niece found her sitting on the couch covered with stool not able to get up., Patient told the nurse though that she had called 911. Patient came into the emergency room was covered with stool large amount of rash to the lower body where she had probably been sitting on the couch for 2 days. Labs showed that she was in renal failure with severe anemia also noting elevated troponins. [facility] Disclaimer: The information contained in this section may have been updated after the patient was seen, as this information can be updated by other users. Social History Smoking Status: Never smoker alcohol intake: never current occupational status: retired Travel in the last 8 weeks: None housing: house marital status: single current occupational exposures/hazards: No caffeine: Yes Review of Systems Review of Systems Review of systems:: pertinent systems reviewed and negative unless documented below Constitutional Constitutional: Reports as per HPI Comments: Patient states that she had been fairly well since she sat down on the couch and then she did not remember what happened that was about 2 days ago, she lives alone. And last time found in her chart was really for cataracts back in 2019 Eyes Eyes: Reports as per HPI Comments: Cataract replacement bilateral 2019 ENT Ears, Nose, Mouth, and Throat: Reports as per HPI and Reports halitosis Comments: Extremely bad gingivitis and dental disease *Cardiovascular Cardiovascular: Reports as per HPI Comments: She denies any chest pain, and had been living alone and was doing well she thinks until 2 days ago denies shortness of breath *Respiratory Respiratory: Reports system reviewed and no additional complaints, except as documented *Gastrointestinal Gastrointestinal: Reports system reviewed and no additional complaints, except as documented and Reports fecal incontinence Comments: Found covered with urine and stool, noting that stool was negative Hemoccult in the ER *Genitourinary Genitourinary: Reports urinary incontinence *Musculoskeletal Musculoskeletal: Reports system reviewed and no additional complaints, except as documented Integumentary/Breasts Skin/Breast: Reports skin pain Comments: Patient is covered with a rash in the groin area from being excoriated from incontinent *Neurologic Neurologic: Reports system reviewed and no additional complaints, except as documented Comments: Patient has become nonambulatory Psychiatric Psychiatric: Reports system reviewed and no additional complaints, except as documented Comments: Patient voiced clear thoughts and showed no signs of wanting to hurt herself., She was coherent, and did discussed with me in detail DNR wishes her wish Endocrine Endocrine: Reports system reviewed and no additional complaints, except as documented Hematologic/Lymphatic Hematologic/Lymphatic: Reports system reviewed and no additional complaints, except as documented Allergic/Immunologic Allergic/Immunologic: Reports system reviewed and no additional complaints, except as documented Meds Home Medications and Allergies Home Medications ?Medication ?Instructions ?Recorded ?Confirmed ?Type aspirin 81 mg tablet,delayed 81 mg PO DAILY 06/22/19 12/23/23 History release insulin NPH-regular 70-30 U-100 18 unit SQ DAILY 06/22/19 12/23/23 History insulin 100 unit/mL subcutaneous pen amlodipine 10 mg tablet 10 mg PO DAILY 12/23/23 12/23/23 History benazepril 20 mg tablet 20 mg PO DAILY 12/23/23 12/23/23 History insulin aspar prot-insulin aspart 10 unit SQ HS 12/23/23 12/23/23 History 100 unit/mL (70-30) subcutaneous pen (Novolog Mix 70-30FlexPen U-100) pravastatin 10 mg tablet 10 mg PO DAILY 12/23/23 12/23/23 History New Prescriptions to Start Prescriptions: Allergies Allergy/AdvReac Type Severity Reaction Status Date / Time No Known Allergies Allergy Verified 07/12/19 08:11 Exam Data for Last 24 hours Vital signs and Labs for Last 24 Hours: Temp Pulse Resp BP Pulse Ox O2 Del Method 97.6 F 87 19 138/66 98 Room Air 12/23/23 01:48 12/23/23 01:48 12/23/23 01:48 12/23/23 01:48 12/23/23 01:48 12/23/23 01:48 Laboratory Results - last 24 hr 12/22/23 20:19: WBC 7.8, RBC 2.12 L, Hgb 6.5 L*, Hct 19.7 L*, MCV 92.6, MCH 30.4, MCHC 32.8, RDW 19.5 H, Plt Count 168, MPV 8.7, Neut % (Auto) 71.5, Lymph % (Auto) 23.4, [place] % (Auto) 4.2, Eos % (Auto) 0.5, Baso % (Auto) 0.3, Neut # (Auto) 5.6, Lymph # (Auto) 1.8, [place] # (Auto) 0.3, Eos # (Auto) 0.0, Baso # (Auto) 0.0, Sodium 144, Potassium 4.4, Chloride 111 H, Carbon Dioxide 17 L, Anion Gap 20.4 H, BUN 80 H, Creatinine 3.60 H, Estimated Creat Clear 14, Estimated GFR 12 L*, Est GFR ( Amer) 15 L*, Glucose 106 H, Lactate 0.9, Calcium 10.5 H, Magnesium 2.0, Total Bilirubin 0.7, AST 21, ALT 10 L, Alkaline Phosphatase 65, Total Creatine Kinase 34, Troponin I 0.07 H, Total Protein 7.2, Albumin 3.2 L, Globulin 4.0 H, Albumin/Globulin Ratio 0.8 L, Procalcitonin 0.155, Blood Type Confirm A Negative 12/22/23 20:53: Urine Color Yellow, Urine Appearance Clear, Urine pH 7.0, Ur Specific [place] 1.015, Urine Protein 2+, Urine Glucose (UA) Negative, Urine Ketones Trace, Urine Blood 2+, Urine Nitrate Negative, Urine Bilirubin Negative, Urine Urobilinogen 0.2, Ur Leukocyte Esterase 3+ A, Urine RBC 20-50, Urine WBC Tntc, Ur Squamous Epith Cells 20-50, Urine Bacteria 4+ 12/22/23 21:25: Blood Type A Negative, Antibody Screen Negative, Crossmatch (AHG) See Detail 12/22/23 22:50: Stool Occult Blood Negative 12/22/23 23:37: Troponin I 0.06 H I & O for Last 24 hours: Intake & Output 12/20/23 12/21/23 12/22/23 12/23/23 23:59 23:59 23:59 23:59 Intake Total 0 / 0 Balance 0 / 0 Weight 74.389 kg 73.981 kg Radiology Reports for the Last 24 Hours: Reviewed all radiology nothing acute has been found, only mild changes Constitutional Constitutional: moderate distress, obese and chronically ill appearing Comments: The patient is alert and oriented but she is lying in bed she would not be able to stand on her own, but mentally she has seems to be intact I have asked her several questions she knew where she was or what time it was the situation and who she was *Routine HEENT Exam Head: Present normocephalic and atraumatic Eye: Present EOMI and PERRL ENT: Present mucous membranes dry Comments: Severe gingivitis and dental disease *Routine Neck Exam Neck: Present supple Comments: Examination found no tenderness in the neck, Routine Chest/Breast/Axilla Exam Comments: No chest wall tenderness *Routine Respiratory Exam Respiratory: Present decreased breath sounds, CTA bilaterally, normal respiratory effort and able to speak in complete sentences Comments: Lungs were clear in all lung cook there was no cough no rales no rhonchi *Routine Cardiovascular Exam Cardiovascular: Present RRR, Normal S1 and Normal S2 Comments: Brisk capillary refill in the nailbeds *Routine Abdominal Exam Abdominal: Present soft and normoactive bowel sounds Comments: Abdominal exam abdomen extremely soft there was no tenderness to the found during the entire exam *Routine Rectal Exam Rectal:: deferred Comments:: Hemoccult stool was negative *Routine Genitalia Exam Genitalia:: deferred Comment:: Patient has been sitting wet for couple days has a lot of excoriation to the skin in the pubic and pelvic area, there was no skin breakdown *Routine Extremities Exam Extremities: Present pulses intact Routine Back/Spine/Pelvis Exam Comments: Did not turn the patient or stand her but she was able to move in the bed without any discomfort *Routine Skin Exam Skin: Present warm and rash Comments: Diaper rash type irritation to the pubic pelvic area and upper thighs no skin breakdown found *Routine Neurological Exam Neurological: Present alert, oriented X3 and CN II-XII intact Comments: Patient can feel me touching her hand she has equal strength bilaterally in her hands she can move her feet well and can feel me touching them equally Routine Psychiatric Exam Psychiatric: Present normal affect, cooperative, good insight and good judgment Comments: Talked with the patient quite a while about what was going on she was able to describe everything well and that she was a DNR, and gave me reasons why and very clear tones and making good sense in all of her conversation H&P: Result Impressions 1. Failure to thrive in an adult female., Emphasized by 2 days of immobility on a couch, severe dental disease, and skin irritation from incontinence that she was not able to take care of 2. Renal failure by labs creatinine and BUN quite elevated 3. Diabetes mellitus on insulin 4. Anemia severe requiring 2 units of blood ordered in the emergency room 5. Malnutrition low protein in all aspects of lab work Imaging and Cardiology CT scan - abdomen: Status: image reviewed by me Additional comments: No significant acute findings, Assessment and Plan *Assessment and plan (1) CULLEN (acute kidney injury): Status: Acute Category: Medical Code(s): N17.9 - Acute kidney failure, unspecified (2) Acute UTI: Status: Acute Category: Medical Code(s): N39.0 - Urinary tract infection, site not specified (3) Elevated troponin: Status: Acute Category: Medical Code(s): R79.89 - Other specified abnormal findings of blood chemistry (4) Uremia: Status: Acute Category: Medical Code(s): N19 - Unspecified kidney failure (5) Adult failure to thrive: Status: Acute Category: Medical Code(s): R62.7 - Adult failure to thrive (6) Anemia: Status: Acute Category: Medical Code(s): D64.9 - Anemia, unspecified (7) Self-care deficit: Status: Acute Category: Medical Code(s): Z78.9 - Other specified health status (8) Diabetes mellitus: Status: Acute Category: Medical Code(s): E11.9 - Type 2 diabetes mellitus without complications (9) Dental decay: Status: Acute Category: Medical Code(s): K02.9 - Dental caries, unspecified (10) At high risk for malnutrition: Status: Acute Category: Medical Code(s): Z91.89 - Other specified personal risk factors, not elsewhere classified (11) Hypertension: Status: Acute Category: Medical Code(s): I10 - Essential (primary) hypertension Plan Ms. Lerma is an 83-year-old female who presented after being found at home seated on her couch for more than 2 days. Gross abnormalities in electrolytes and renal failure in the ER. Discussed case with ER physician, request admission for further management and treatment. Medicine agreed to admit. Initiated on IV fluids. Transfusing blood overnight. Needs therapy eval's. Problems addressed as follows: Acute renal failure Uremia - Kidney failure with BUN 80, creatinine 3.6. Prerenal in appearance with BUN/creatinine ratio greater than 20. Metabolic acidosis with bicarb of 17. Potassium 4.4, calcium 10.5, magnesium 2.0. -Received fluids in the ER, will continue gentle hydration with IV fluids. BMP ordered for this evening. Monitoring kidney function every 8 hours. CBC, CMP, magnesium ordered for the morning. -Per my review of CT of abdomen, no obstructing stones in bilateral kidneys. -CK remarkably normal even though she was immobile for days. Anemia: -Hemoccult negative in the ER. Hemoglobin 6.5, transfused 2 units overnight. Monitor for improvement. Patient denies any hematemesis, melena, bright red blood per rectum. Concern for nutritional component. Will monitor for any signs of blood loss. -Pantoprazole 40 mg orally twice daily Diabetes: Fingersticks ACHS, sliding scale insulin. A1c 4.8. Suggestive of not being diabetic. Will monitor insulin needs over the next few days. Hypertension: Holding benazepril in the setting of CULLEN. Continue amlodipine daily 10 mg Elevated troponin: - stable at 0.07 throughout the night on serial monitoring. No chest pain. -Cardiology consulted. Evaluated patient, recommend outpatient workup. No interventions at this time and the acute illness setting. UTI: - Urine grossly abnormal with leuk esterase 3+, white count too numerous to count, bacteria 4+. Concern for UTI. Initiated on ceftriaxone. Continue 1 g daily. Culture pending. -White count 7.8 Failure to thrive -Concern for debility and malnutrition. Nutrition consulted to assist. PT and OT consulted to assist with management and dispo recommendations. Will likely need placement for rehab DNR Holding anticoagulant in the setting of anemia Regular diet Rounded on patient after nurse practitioner. Personally examined and interviewed patient. Agree with exam findings and care plan as documented. Adjusted plan as appropriate above. Patient appears quite debilitated, concern for failure to thrive. Concerned about her safety going home. Will likely need placement. Anticipate admission for at least 2 midnights in the hospital.
[2023-12-23 04:14] LABS: Hematocrit 19.6 % (37.0-47.0); Hemoglobin 6.3 g/dL (12.2-16.2)
--- NOTE | 2023-12-23 04:22 | PC.NURSE ---
2nd unit of blood obtained from lab. LCooper present to verify blood with nurse. Blood would not scan despite numerous attempts. Notified lab, laborer beam house and ИРИНА Camilo of issues with scanning. No resolution to issue. Plan to obtain post transfusion H/H now and will f/u with plan for further blood in am per orders from Ton Goode NP
[2023-12-23 04:31] LABS: Troponin I 0.07 ng/ml (0.00-0.034)
[2023-12-23] MEDS: CEFTRIAXONE 1 GM 1 GM in 0.9 % SODIUM CHLORIDE 50 ML IV (04:35)
[2023-12-23 06:41] LABS: POC Glucose,Bedside 106 (70-110)
--- NOTE | 2023-12-23 08:01 | HMH.PHAINT1 ---
Pharmacy Intervention Comments: MEDICATION RECONCILIATION COMPLETED ON PATIENT USING EXTERNAL FILL HISTORY FROM PHARMACY. -MINDY BEY, RADHAD
[2023-12-23] MEDS: PANTOPRAZOLE 40MG VIAL 40 MG IV ×2 (09:07→20:47)
--- NOTE | 2023-12-23 09:57 | CA_ITS ---
APPROVED REPORT EXAM: Comprehensive 2D, Doppler, and color-flow Echocardiogram Table Filler: Lesia Bates RVT Ht: 5 ft 4 in Wt: 157lbs BSA: 1.76 BP: 138/66 mmHg Indications: ELEVATED TROP,ANEMIA,HTN,DM TDS-PT SCANNED FLAT ON BACK 2D Dimensions IVSd 1.34 cm F: 0.6-1.0 LVEF (Visual) 87.10 % PWd 0.97 cm F: 0.6 - 1.0 LA Volume 76.10 mL LVDd 4.25 cm F: 3.9 - 5.3 LA Volume Index 42.99 mL/m2 (M/F) 16-34 LVDs 1.85 cm F: 2.2 - 3.5 M-Mode Dimensions LA Diam 4.19 cm (1.9-4.0) LV Diastology E Decel Time 297 (160-240 msec) E/A Ratio 0.6 Aortic Valve BENJI Index 1.33 cm2/m2 AoV Peak Giorgi. 170.0 (50-130 cm/s) AO Peak GR. 11.60 mmHg AO Mean GR. 5.40 (<5 mmHg) AO VTI 30.6 (18-25 cm) BENJI (VTI) 2.41 (2.5-4.5 cm2) Mitral Valve MV E Max Giorgi. 78.0 (40-130 cm/s) MV A Velocity 122.0 (40-130 cm/s) E/A Ratio 0.64 MV PHT 87.0 ms Pulmonary Valve PV Peak Velocity 120.0 (50-150 cm/s) Left Ventricle The left ventricle is normal size. The left ventricular systolic function is normal. The left ventricular ejection fraction is within the normal range. There is increased of the wall thickness. There is normal LV segmental wall motion. Transmitral Doppler flow pattern suggests impaired LV relaxation. LVEF is 65%. Right Ventricle Right ventricle is mildly dilated. The right ventricular systolic function is normal. Atria Left atrium is mildly dilated. Right atrium is mildly dilated. There is no Doppler evidence of interatrial shunt. Aortic Valve Aortic valve is mildly thickened. Mild aortic regurgitation. There is no aortic valvular stenosis. Mitral Valve The mitral valve leaflets are mildly thickened. No evidence of mitral valve stenosis. Mild mitral regurgitation. Tricuspid Valve The tricuspid valve leaflets are thin and pliable. Trace tricuspid regurgitation. There is insufficient TR jet to estimate RVSP. Pulmonic Valve The pulmonary valve is normal in structure. Trace pulmonic regurgitation. Great Vessels The aortic root is normal in size. The ascending aorta is not well-visualized. IVC is normal in size and collapses >50% with inspiration. Pericardium There is no pericardial effusion. Pleural effusion is incidentally noted. Other Information Study Quality: Technically Difficult Conclusion Technically difficult study due to poor acoustic windows. Normal biventricular systolic function. Mild RV dilation. Right atrial dilation. Mild AI and MR. Pleural effusion is incidentally noted. Electronically signed by : Alicia Parish MD 12/23/2023 13:05:21
[2023-12-23 11:29] LABS: POC Glucose,Bedside 94 (70-110)
[2023-12-23 11:40] LABS: Basophils % 0.3 % (0.1-2.0); Eosinophils # 0.1 K/mm3 (0.0-0.4); Eosinophils % 1.1 % (0.1-12.0); Hematocrit 25.6 % (37.0-47.0); Lymphocytes # 0.9 K/mm3 (0.7-4.5); Mean Corpuscular Hemoglobin 31.2 pg (27.0-31.2); Mean Corpuscular Volume 94.8 fl (81-99); Mean Platelet Volume 8.6 fl (7.4-10.4); Monocytes # 0.3 K/mm3 (0.1-1.0); Neutrophils % 79.5 % (37.0-80.0); Platelet Count 137 K/mm3 (142-424); Red Cell Distribution Width 17.8 % (11.5-17.5); White Blood Count 6.2 K/mm3 (4.8-10.8)
[2023-12-23 11:45] LABS: Alanine Aminotransferase 8 U/L (12-78); Albumin Level 2.9 g/dl (3.5-5.0); Albumin/Globulin Ratio 0.7 (1.1-1.8); Alkaline Phosphatase 61 U/L (38-126); Anion Gap 16.5 mEq/L (5-15); Aspartate Amino Transferase 19 U/L (14-36); Bilirubin,Total 0.7 mg/dl (0.2-1.3); Blood Urea Nitrogen 73 mg/dl (7-17); Calcium 10.1 mg/dl (8.4-10.2); Carbon Dioxide 18 mmol/L (22.0-30.0); Chloride 111 mmol/L (98-107); Creatinine Clearance Estimated 17 mL/min (50-200); Estimated Glomerular Filt Rate 16 ml/min (>60); GFR (African American) 19 ML/MIN (>60); Glucose 87 mg/dl (74-100); Magnesium 1.9 mg/dl (1.6-2.3); Potassium 3.5 mmoL/L (3.5-5.1); Sodium 142 mmol/L (136-145); Total Protein,Serum 6.9 g/dl (6.3-8.2)
[2023-12-23 12:21] LABS: Hemoglobin 8.4 g/dL (12.2-16.2)
--- NOTE | 2023-12-23 13:09 | P.CONCA_ITS ---
History of Present Illness History of Present Illness Consult date: 12/23/23 Requesting physician: Ton Scott Chief complaint: weakness History of present illness: 83-year-old white female without known cardiovascular disease came to ER via EMS after being found without contact for several days sitting on her couch at home with bowel incontinence. Workup in the emergency room revealed hemoglobin of 6.3, creatinine 3.6. We are consulted for flat troponins 0.07, 0.06, 0.07. Head CT revealed multiple white matter foci likely from senescent changes-prior infectious inflammatory or trauma. EKG shows sinus tachycardia 104 bpm, no a cute ischemia or ectopy. Vitals are stable. Patient this morning is fully alert and oriented and remembers the entire 2 days sitting at home. States she had gradually become weak over 2 months and got to the point where she was just no longer able to get up and move, she was too weak to even get to the phone. She eventually was found by her nephew who called EMS. [facility] Disclaimer: The information contained in this section may have been updated after the patient was seen, as this information can be updated by other users. Social History Smoking Status: Never smoker alcohol intake: never current occupational status: retired Travel in the last 8 weeks: None housing: house marital status: single current occupational exposures/hazards: No caffeine: Yes Review of Systems Constitutional Constitutional: Reports fatigue and Reports weakness Eyes Eyes: Denies loss of vision ENT Ears, Nose, Mouth, and Throat: Denies hearing loss *Cardiovascular Cardiovascular: Denies chest pain and Denies dyspnea *Respiratory Respiratory: Denies cough and Denies dyspnea *Gastrointestinal Gastrointestinal: Denies change in stool character, Denies nausea and Denies vomiting *Musculoskeletal Musculoskeletal: Denies muscle weakness Integumentary/Breasts Skin/Breast: Denies changing lesions *Neurologic Neurologic: Reports system reviewed and no additional complaints, except as documented, Denies loss of vision and Reports weakness Endocrine Endocrine: Reports fatigue Exam Data for Last 24 hours Vital signs and Labs for Last 24 Hours: Temp Pulse Resp BP Pulse Ox O2 Del Method 97.6 F 85 18 154/72 H 98 Room Air 12/23/23 09:55 12/23/23 09:55 12/23/23 09:55 12/23/23 09:55 12/23/23 09:55 12/23/23 12:54 Laboratory Results - last 24 hr 12/22/23 20:19: WBC 7.8, RBC 2.12 L, Hgb 6.5 L*, Hct 19.7 L*, MCV 92.6, MCH 30.4, MCHC 32.8, RDW 19.5 H, Plt Count 168, MPV 8.7, Neut % (Auto) 71.5, Lymph % (Auto) 23.4, [place] % (Auto) 4.2, Eos % (Auto) 0.5, Baso % (Auto) 0.3, Neut # (Auto) 5.6, Lymph # (Auto) 1.8, [place] # (Auto) 0.3, Eos # (Auto) 0.0, Baso # (Auto) 0.0, Sodium 144, Potassium 4.4, Chloride 111 H, Carbon Dioxide 17 L, Anion Gap 20.4 H, BUN 80 H, Creatinine 3.60 H, Estimated Creat Clear 14, Estimated GFR 12 L*, Est GFR ( Amer) 15 L*, Glucose 106 H, Lactate 0.9, Calcium 10.5 H, Magnesium 2.0, Total Bilirubin 0.7, AST 21, ALT 10 L, Alkaline Phosphatase 65, Total Creatine Kinase 34, Troponin I 0.07 H, Total Protein 7.2, Albumin 3.2 L, Globulin 4.0 H, Albumin/Globulin Ratio 0.8 L, Procalcitonin 0.155, Blood Type Confirm A Negative 12/22/23 20:53: Urine Color Yellow, Urine Appearance Clear, Urine pH 7.0, Ur Specific [place] 1.015, Urine Protein 2+, Urine Glucose (UA) Negative, Urine Ketones Trace, Urine Blood 2+, Urine Nitrate Negative, Urine Bilirubin Negative, Urine Urobilinogen 0.2, Ur Leukocyte Esterase 3+ A, Urine RBC 20-50, Urine WBC Tntc, Ur Squamous Epith Cells 20-50, Urine Bacteria 4+ 12/22/23 21:25: Blood Type A Negative, Antibody Screen Negative, Crossmatch (AHG) See Detail 12/22/23 22:50: Stool Occult Blood Negative 12/22/23 23:37: Troponin I 0.06 H 12/23/23 04:00: Hgb 6.3 L*, Hct 19.6 L*, Troponin I 0.07 H 12/23/23 06:32: POC Glucose 106 12/23/23 11:09: WBC 6.2, RBC 2.70 L D, Hgb 8.4 L D, Hct 25.6 L, MCV 94.8, MCH 31.2, MCHC 33.0, RDW 17.8 H, Plt Count 137 L, MPV 8.6, Neut % (Auto) 79.5, Lymph % (Auto) 14.0, [place] % (Auto) 5.0, Eos % (Auto) 1.1, Baso % (Auto) 0.3, Neut # (Auto) 5.0, Lymph # (Auto) 0.9, [place] # (Auto) 0.3, Eos # (Auto) 0.1, Baso # (Auto) 0.0, Sodium 142, Potassium 3.5 D, Chloride 111 H, Carbon Dioxide 18 L, Anion Gap 16.5 H, BUN 73 H, Creatinine 2.90 H, Estimated Creat Clear 17, Estimated GFR 16 L*, Est GFR ( Amer) 19 L* D, Glucose 87, Calcium 10.1, Magnesium 1.9, Total Bilirubin 0.7, AST 19, ALT 8 L, Alkaline Phosphatase 61, Total Protein 6.9, Albumin 2.9 L, Globulin 4.0 H, Albumin/Globulin Ratio 0.7 L 12/23/23 11:22: POC Glucose 94 I & O for Last 24 hours: Intake & Output 12/20/23 12/21/23 12/22/23 12/23/23 23:59 23:59 23:59 23:59 Intake Total 0 / 0 863 / 863 Output Total 400 / 400 Balance 0 / 0 463 / 463 Weight 164 lb 157 lb 4.8 oz Constitutional Constitutional: no acute distress and cooperative *Routine HEENT Exam Eye: Present PERRL Comments: Very poor dentition *Routine Respiratory Exam Respiratory: Present CTA bilaterally; Absent accessory muscle use, wheezes or crackles *Routine Cardiovascular Exam Cardiovascular: Present RRR, Normal S1 and Normal S2; Absent murmur, gallop or rubs *Routine Abdominal Exam Abdominal: Present soft; Absent tenderness *Routine Extremities Exam Extremities: Present pulses intact; Absent cyanosis or edema *Routine Skin Exam Skin: Present intact; Absent erythema or wounds *Routine Neurological Exam Neurological: Present alert and oriented X3 Routine Psychiatric Exam Psychiatric: Present cooperative Meds Home Medications and Allergies Home Medications ?Medication ?Instructions ?Recorded ?Confirmed ?Type aspirin 81 mg tablet,delayed 81 mg PO DAILY 06/22/19 12/23/23 History release insulin NPH-regular 70-30 U-100 18 unit SQ DAILY 06/22/19 12/23/23 History insulin 100 unit/mL subcutaneous pen amlodipine 10 mg tablet 10 mg PO DAILY 12/23/23 12/23/23 History benazepril 20 mg tablet 20 mg PO DAILY 12/23/23 12/23/23 History insulin aspar prot-insulin aspart 10 unit SQ HS 12/23/23 12/23/23 History 100 unit/mL (70-30) subcutaneous pen (Novolog Mix 70-30FlexPen U-100) pravastatin 10 mg tablet 10 mg PO DAILY 12/23/23 12/23/23 History New Prescriptions to Start Prescriptions: Allergies Allergy/AdvReac Type Severity Reaction Status Date / Time No Known Allergies Allergy Verified 07/12/19 08:11 Assessment and Plan *Assessment and plan (1) Elevated troponin: Status: Acute Category: Medical Code(s): R79.89 - Other specified abnormal findings of blood chemistry (2) Anemia: Status: Acute Category: Medical Code(s): D64.9 - Anemia, unspecified (3) CULLEN (acute kidney injury): Status: Acute Category: Medical Code(s): N17.9 - Acute kidney failure, unspecified Plan Elevated troponin -Incidental finding during workup, patient denies chest pain, EKG shows sinus rhythm without ischemia or ectopy -2D echo reveals hyperdynamic EF with mild RV dilation. There is no wall motion changes. -Elevation of the labs secondary to critical anemia but this does increase her underlying risk of coronary artery disease which we can follow-up on as an outpatient in the clinic. Severe anemia, hemoglobin 6.3 -Patient denies abdominal symptoms and trauma -Hemoccult negative -Further plans per primary service CULLEN - Cr 3.6 (was lion here 2019) - likly malnourished/dehdyrated - negative for proteinuria - check CPK CV stable, no further inpatient cardiac workup warranted at this time. Please advise if we can be of further assistance prior to DC, otherwise she can f/u in our office 2 weeks post discharge.
[2023-12-23 13:17] LABS: INR 0.92 (0.9-1.1); Prothrombin Time 10.4 seconds (10.1-12.5)
[2023-12-23] MEDS: LACTATED RINGERS 1000ML 1,000 ML 100 ML IV (13:48)
--- NOTE | 2023-12-23 16:20 | EXP.POD.CONS ---
History of Present Illness *Admission Date: 12/23/23 *History of present illness: The patient who had not been contacted for 2 days I was told the niece found her sitting on the couch covered with stool not able to get up., Patient told the nurse though that she had called 911. Patient came into the emergency room was covered with stool large amount of rash to the lower body where she had probably been sitting on the couch for 2 days. Labs showed that she was in renal failure with severe anemia also noting elevated troponins. 12/23/23: Podiatry consult Patient resting in bed awake upon entering the room. She is alert and oriented. She denies any pain at this time, she verbally agreed for me to do a Diabetic foot exam and nail trim at the bedside. [facility] Disclaimer: The information contained in this section may have been updated after the patient was seen, as this information can be updated by other users. Social History Smoking Status: Never smoker alcohol intake: never current occupational status: retired Travel in the last 8 weeks: None housing: house marital status: single current occupational exposures/hazards: No caffeine: Yes Review of Systems Constitutional Constitutional: Reports weakness Eyes Eyes: Denies loss of vision *Neurologic Neurologic: Reports system reviewed and no additional complaints, except as documented, Denies loss of vision and Reports weakness Meds Home Medications and Allergies Home Medications ?Medication ?Instructions ?Recorded ?Confirmed ?Type aspirin 81 mg tablet,delayed 81 mg PO DAILY 06/22/19 12/23/23 History release insulin NPH-regular 70-30 U-100 18 unit SQ DAILY 06/22/19 12/23/23 History insulin 100 unit/mL subcutaneous pen amlodipine 10 mg tablet 10 mg PO DAILY 12/23/23 12/23/23 History benazepril 20 mg tablet 20 mg PO DAILY 12/23/23 12/23/23 History insulin aspar prot-insulin aspart 10 unit SQ HS 12/23/23 12/23/23 History 100 unit/mL (70-30) subcutaneous pen (Novolog Mix 70-30FlexPen U-100) pravastatin 10 mg tablet 10 mg PO DAILY 12/23/23 12/23/23 History New Prescriptions to Start Prescriptions: Allergies Allergy/AdvReac Type Severity Reaction Status Date / Time No Known Allergies Allergy Verified 07/12/19 08:11 Exam (Inpt) Vital signs and Labs for Last 24 Hours: Temp Pulse Resp BP Pulse Ox O2 Del Method 97.6 F 90 18 147/52 H 97 Room Air 12/23/23 13:42 12/23/23 13:42 12/23/23 13:42 12/23/23 13:42 12/23/23 13:42 12/23/23 13:42 Laboratory Results - last 24 hr 12/22/23 20:19: WBC 7.8, RBC 2.12 L, Hgb 6.5 L*, Hct 19.7 L*, MCV 92.6, MCH 30.4, MCHC 32.8, RDW 19.5 H, Plt Count 168, MPV 8.7, Neut % (Auto) 71.5, Lymph % (Auto) 23.4, [place] % (Auto) 4.2, Eos % (Auto) 0.5, Baso % (Auto) 0.3, Neut # (Auto) 5.6, Lymph # (Auto) 1.8, [place] # (Auto) 0.3, Eos # (Auto) 0.0, Baso # (Auto) 0.0, Sodium 144, Potassium 4.4, Chloride 111 H, Carbon Dioxide 17 L, Anion Gap 20.4 H, BUN 80 H, Creatinine 3.60 H, Estimated Creat Clear 14, Estimated GFR 12 L*, Est GFR ( Amer) 15 L*, Glucose 106 H, Lactate 0.9, Calcium 10.5 H, Magnesium 2.0, Total Bilirubin 0.7, AST 21, ALT 10 L, Alkaline Phosphatase 65, Total Creatine Kinase 34, Troponin I 0.07 H, Total Protein 7.2, Albumin 3.2 L, Globulin 4.0 H, Albumin/Globulin Ratio 0.8 L, Procalcitonin 0.155, Blood Type Confirm A Negative 12/22/23 20:53: Urine Color Yellow, Urine Appearance Clear, Urine pH 7.0, Ur Specific [place] 1.015, Urine Protein 2+, Urine Glucose (UA) Negative, Urine Ketones Trace, Urine Blood 2+, Urine Nitrate Negative, Urine Bilirubin Negative, Urine Urobilinogen 0.2, Ur Leukocyte Esterase 3+ A, Urine RBC 20-50, Urine WBC Tntc, Ur Squamous Epith Cells 20-50, Urine Bacteria 4+ 12/22/23 21:25: Blood Type A Negative, Antibody Screen Negative, Crossmatch (AHG) See Detail 12/22/23 22:50: Stool Occult Blood Negative 12/22/23 23:37: Troponin I 0.06 H 12/23/23 04:00: Hgb 6.3 L*, Hct 19.6 L*, Troponin I 0.07 H 12/23/23 06:32: POC Glucose 106 12/23/23 11:09: WBC 6.2, RBC 2.70 L D, Hgb 8.4 L D, Hct 25.6 L, MCV 94.8, MCH 31.2, MCHC 33.0, RDW 17.8 H, Plt Count 137 L, MPV 8.6, Neut % (Auto) 79.5, Lymph % (Auto) 14.0, [place] % (Auto) 5.0, Eos % (Auto) 1.1, Baso % (Auto) 0.3, Neut # (Auto) 5.0, Lymph # (Auto) 0.9, [place] # (Auto) 0.3, Eos # (Auto) 0.1, Baso # (Auto) 0.0, PT 10.4, INR 0.92, Sodium 142, Potassium 3.5 D, Chloride 111 H, Carbon Dioxide 18 L, Anion Gap 16.5 H, BUN 73 H, Creatinine 2.90 H, Estimated Creat Clear 17, Estimated GFR 16 L*, Est GFR ( Amer) 19 L* D, Glucose 87, Calcium 10.1, Magnesium 1.9, Total Bilirubin 0.7, AST 19, ALT 8 L, Alkaline Phosphatase 61, Total Protein 6.9, Albumin 2.9 L, Globulin 4.0 H, Albumin/Globulin Ratio 0.7 L 12/23/23 11:22: POC Glucose 94 I & O for Labs for Last 24 Hours: Intake & Output 12/20/23 12/21/23 12/22/23 12/23/23 23:59 23:59 23:59 23:59 Intake Total 0 / 0 863 / 863 Output Total 400 / 400 Balance 0 / 0 463 / 463 Weight 164 lb 157 lb 4.8 oz Constitutional: Present no acute distress and cooperative Head: Present normocephalic Eye: Present as per HPI Neck: Present trachea midline Respiratory: Present normal respiratory effort, able to speak in complete sentences and symmetric chest movement Cardiac: Present posterior tibial pulses present and pedal pulses present Comments:: deferred Rectal (female): Present deferred (female): Present deferred Extremities: Present full ROM and normal capillary refill; Absent calf tenderness Skin: Present intact, dry and warm; Absent wounds Comment:: 12/23/23: Nails very long and dystrophic, pincer nail deformity in nails 2-5 bilaterally. Dry patches of skin noted to tops and around her toes b/l. Skin intact. Neuro: Present Motor Function Intact, Sensory Function Intact, oriented x 3, tone normal and moves all extremities Ankle: bilateral: normal inspection and bilateral: full ROM Feet/Toes: bilateral: bunion, bilateral: nail abnormalities (Long and dystrophic), bilateral: Ingrown Toenail (Pincer nail deformity), bilateral: onychomycosis (Suspected) and bilateral: full ROM Inspection: Present nail disorder; Absent skin break or infection Pulses: L dorsalis pedis pulse: normal, R dorsalis pedis pulse: normal, L posterior tibial pulse: normal and R posterior tibial pulse: normal CFT: normal: CFT Pinprick: L great toe: normal and R great toe: normal Ankle reflex: Left: normal and Right: normal Results Labs 12/23/23 11:09 12/23/23 11:09 Labs: Abnormal lab results 12/22/23 12/22/23 12/22/23 Range/Units 20:19 20:53 21:25 RBC 2.12 L (4.20-5.40) M/mm3 Hgb 6.5 L* (12.2-16.2) g/dL Hct 19.7 L* (37.0-47.0) % RDW 19.5 H (11.5-17.5) % Plt Count (142-424) K/mm3 Chloride 111 H (98-107) mmol/L Carbon Dioxide 17 L (22.0-30.0) mmol/L Anion Gap 20.4 H (5-15) mEq/L BUN 80 H (7-17) mg/dl Creatinine 3.60 H (0.52-1.04) mg/dl Estimated GFR 12 L* (>60) ml/min Est GFR ( Amer) 15 L* (>60) ML/MIN Glucose 106 H (74-100) mg/dl Calcium 10.5 H (8.4-10.2) mg/dl ALT 10 L (12-78) U/L Troponin I 0.07 H (0.00-0.034) ng/ml Albumin 3.2 L (3.5-5.0) g/dl Globulin 4.0 H (1.3-3.2) g/dL Albumin/Globulin Ratio 0.8 L (1.1-1.8) Ur Leukocyte Esterase 3+ A (Negative) Crossmatch (AHG) See Detail 12/22/23 12/23/23 12/23/23 Range/Units 23:37 04:00 11:09 RBC 2.70 L D (4.20-5.40) M/mm3 Hgb 6.3 L* 8.4 L D (12.2-16.2) g/dL Hct 19.6 L* 25.6 L (37.0-47.0) % RDW 17.8 H (11.5-17.5) % Plt Count 137 L (142-424) K/mm3 Chloride 111 H (98-107) mmol/L Carbon Dioxide 18 L (22.0-30.0) mmol/L Anion Gap 16.5 H (5-15) mEq/L BUN 73 H (7-17) mg/dl Creatinine 2.90 H (0.52-1.04) mg/dl Estimated GFR 16 L* (>60) ml/min Est GFR ( Amer) 19 L* D (>60) ML/MIN Glucose (74-100) mg/dl Calcium (8.4-10.2) mg/dl ALT 8 L (12-78) U/L Troponin I 0.06 H 0.07 H (0.00-0.034) ng/ml Albumin 2.9 L (3.5-5.0) g/dl Globulin 4.0 H (1.3-3.2) g/dL Albumin/Globulin Ratio 0.7 L (1.1-1.8) Ur Leukocyte Esterase (Negative) Crossmatch (G) H & H 12/22/23 12/23/23 12/23/23 Range/Units 20:19 04:00 11:09 Hgb 6.5 L* 6.3 L* 8.4 L D (12.2-16.2) g/dL Hct 19.7 L* 19.6 L* 25.6 L (37.0-47.0) % Coagulation 12/23/23 Range/Units 11:09 INR 0.92 (0.9-1.1) All other labs normal. 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 insulin Category: Medical Code(s): E11.9 - Type 2 diabetes mellitus without complications (2) Onychodystrophy: Status: Acute Category: Medical Code(s): L60.3 - Nail dystrophy (3) Pain due to onychomycosis of toenails of both feet: Status: Acute Category: Medical Code(s): B35.1 - Tinea unguium; M79.675 - Pain in left toe(s); M79.674 - Pain in right toe(s) (4) Pincer nail deformity: Status: Acute Category: Medical Code(s): L60.8 - Other nail disorders (5) Keratosis: Status: Acute Category: Medical Code(s): L57.0 - Actinic keratosis Plan 12/23/2023: History of Present Illness *Admission Date: 12/23/23 *Reason for visit:: Weakness, confusion, renal failure, anemia *History of present illness: The patient who had not been contacted for 2 days I was told the niece found her sitting on the couch covered with stool not able to get up., Patient told the nurse though that she had called 911. Patient came into the emergency room was covered with stool large amount of rash to the lower body where she had probably been sitting on the couch for 2 days. Labs showed that she was in renal failure with severe anemia also noting elevated troponins. Podiatry consult DM EDUCATION: Diabetes mellitus on insulin A comprehensive diabetic foot examination was performed today. We discussed the systemic risks of diabetes and the importance of proper glucose control. We discussed the dangers of neuropathy or excessive pain. Patient was given a risk stratification of [1] and is recommend to follow up every [3] months. We discussed areas of high pressure on the patient?s foot as well as the risks and offloading solutions. We reviewed the proper foot care instructions such as: checking feet on a daily basis, keeping good hygiene, drying well between all toes, using lotion on dry skin, and wearing some form of foot protection at all times. We also discussed what to look for in areas of inflammation, ``hot spots??, and ulcer formation. We did review patient?s current medications and discussed the importance of taking all medications as prescribed. We also discussed use of appropriate therapeutic footwear, inserts, and orthotics. Diabetic shoes are necessary in order to prevent rubbing and irritation on the deformities. This in return will help prevent ulceration formation, amputation, and infection. Onychodystrophy/pincer nail deformity Nails were debrided x?s 10 utilizing manual debridement with a nail nipper. Patient tolerated the procedure well. Recommend the use of gege board to file nails down and keep thinner. Once patient is discharged we can set her up for DM shoes and regular Diabetic foot evaluations and nail trimming Follow up in clinic 3 months (may call office for this appt. prior to discharge) A total of 25 minutes was spent on patient encounter including chart review, ER visit review, DFC exam, nail debridement, patient education/counseling and documentation. Thank you for allowing me to participate in the care of this patient. Marina Magallon APRN Podiatry
[2023-12-23 16:57] LABS: POC Glucose,Bedside 175 (70-110)
[2023-12-23] MEDS: humaLOG 100 UNITS/ML 10ML VIAL (SSI) SQ ×2 (17:04→21:13)
--- NOTE | 2023-12-23 17:26 | PC.NURSE ---
83 year old female, a&ox4. pt has tolerated ra well throughout shift. respirations unlabored and regular. lung sounds clear throughout. no cough noted. no edema noted. +1 pulses noted throughout. heart rate regular. active bowel sounds heard in all 4 quadrants. soft and nontender abdomen. pt did have 1 xlarge bm this shift and was assisted with cleaning up. sosa cath in place with yellow urine noted in drainage bag. no kinks noted. hand marketing coordinator equal. pt did receive a bath today and tolerated well. turning personal hygiene pt's hair was found to be matted in the back making it difficult to brush. pt verbalized she would like for staff to cut her hair. pt tolerated well. hair is free of knots and was cleaned well. pt was assisted with brushing teeth as well. podiatry did come cut patient's toenails today. pt tolerated well. excoriation noted to coccyx and groin area. barrier cream applied and pt turned q2 hours to prevent further skin issues. pillow also under both heals to prevent skin breakdown as patient doesn't move positions well in bed by herself. bed alarm on to promote safety. bed in lowest position. call light within reach. vss. pt has denied pain throughout shift. pt did receive her 2nd unit of blood this am and tolerated well. h&h post transfusion ordered and labs were within normal limits under .
[2023-12-23 17:46] LABS: Hemoglobin A1C 4.8 % (4.0-6.0)
[2023-12-23 18:09] LABS: Chloride 108 mmol/L (98-107); Potassium 3.6 mmoL/L (3.5-5.1); Sodium 140 mmol/L (136-145)
[2023-12-23 18:12] LABS: Anion Gap 16.6 mEq/L (5-15); Blood Urea Nitrogen 70 mg/dl (7-17); Calcium 9.8 mg/dl (8.4-10.2); Carbon Dioxide 19 mmol/L (22.0-30.0); Creatinine Clearance Estimated 17 mL/min (50-200); Estimated Glomerular Filt Rate 16 ml/min (>60); GFR (African American) 20 ML/MIN (>60); Glucose 152 mg/dl (74-100)
[2023-12-23] MEDS: SODIUM CHLORIDE 0.9% 10ML VIAL 10 ML IV (20:48)
[2023-12-23 21:02] LABS: POC Glucose,Bedside 152 (70-110)
[2023-12-24] VITALS (7 sets, daily range): BP systolic 106–163; BP diastolic 46–81; PULSE 84–112; RESP 14–20; TEMP 36.8–37.4; O2SAT 95–98; BMI 28.0
--- NOTE | 2023-12-24 04:07 | PC.NURSE ---
83 yo female pt with admitting Dx of UTI and anemia. Pt has denied complaints of pain or SOA this shift. VSS and she has rested well through the night. She is A/O X 4 with f/c patent to BSD. She is assist of 2 to transfer to [facility]. Will have PT/OT consult and continue to be followed
[2023-12-24 06:22] LABS: POC Glucose,Bedside 115 (70-110)
[2023-12-24 06:42] LABS: Basophils % 0.3 % (0.1-2.0); Eosinophils # 0.1 K/mm3 (0.0-0.4); Eosinophils % 1.2 % (0.1-12.0); Hematocrit 21.9 % (37.0-47.0); Lymphocytes # 0.9 K/mm3 (0.7-4.5); Lymphocytes % 15.8 % (10-50); Mean Corpuscular HGB Conc 32.6 g/dL (31.8-35.4); Mean Corpuscular Hemoglobin 30.8 pg (27.0-31.2); Mean Corpuscular Volume 94.4 fl (81-99); Mean Platelet Volume 8.4 fl (7.4-10.4); Monocytes # 0.3 K/mm3 (0.1-1.0); Neutrophils # 4.2 K/mm3 (1.8-7.8); Neutrophils % 77.7 % (37.0-80.0); Platelet Count 110 K/mm3 (142-424); Red Blood Count 2.32 M/mm3 (4.20-5.40); Red Cell Distribution Width 18.1 % (11.5-17.5); White Blood Count 5.3 K/mm3 (4.8-10.8)
[2023-12-24 06:45] LABS: Albumin Level 2.5 g/dl (3.5-5.0); Chloride 112 mmol/L (98-107)
[2023-12-24 06:46] LABS: Potassium 3.4 mmoL/L (3.5-5.1); Sodium 137 mmol/L (136-145)
[2023-12-24 06:48] LABS: Alanine Aminotransferase 7 U/L (12-78); Anion Gap 9.4 mEq/L (5-15); Aspartate Amino Transferase 18 U/L (14-36); Blood Urea Nitrogen 59 mg/dl (7-17); Carbon Dioxide 19 mmol/L (22.0-30.0); Creatinine Clearance Estimated 21 mL/min (50-200); Estimated Glomerular Filt Rate 19 ml/min (>60); GFR (African American) 23 ML/MIN (>60)
[2023-12-24 06:49] LABS: Albumin/Globulin Ratio 0.7 (1.1-1.8); Alkaline Phosphatase 58 U/L (38-126); Bilirubin,Total 0.5 mg/dl (0.2-1.3); Globulin 3.4 g/dL (1.3-3.2); Glucose 103 mg/dl (74-100); Magnesium 1.7 mg/dl (1.6-2.3); Phosphorous 3.4 mg/dl (2.5-4.5); Total Protein,Serum 5.9 g/dl (6.3-8.2)
[2023-12-24 07:08] LABS: Hemoglobin 7.1 g/dL (12.2-16.2)
[2023-12-24] MEDS: AMLODIPINE 10MG TABLET 10 MG PO (08:47)
[2023-12-24] MEDS: CEFTRIAXONE 1 GM 1 GM in 0.9 % SODIUM CHLORIDE 50 ML IV (08:47)
[2023-12-24] MEDS: PANTOPRAZOLE 40MG VIAL 40 MG IV ×2 (08:47→20:33)
--- NOTE | 2023-12-24 09:50 | HMH.OTEV ---
OT Inpatient Evaluation Rehab OT IP Evaluation Start: 12/23/23 15:29 Freq: ONCE Status: Active Protocol: Document 12/24/23 09:38 MADELAINEINOCENCIO (Rec: 12/24/23 09:49 CLEVE [id number]) Rehab OT IP Assessment Subjective History Ms. Lerma is an 83-year- old female who presented after being found at home seated on her couch for more than 2 days. Gross abnormalities in electrolytes and renal failure in the ER. Discussed case with ER physician, request admission for further management and treatment. Medicine agreed to admit. Initiated on IV fluids. Transfusing blood overnight. Needs therapy eval's. Problems addressed as follows: Acute renal failure Uremia - Kidney failure with BUN 80, creatinine 3.6. Prerenal in appearance with BUN/creatinine ratio greater than 20. Metabolic acidosis with bicarb of 17. Potassium 4.4, calcium 10.5, magnesium 2.0. -Received fluids in the ER, will continue gentle hydration with IV fluids. BMP ordered for this evening. Monitoring kidney function every 8 hours. CBC, CMP, magnesium ordered for the morning. -Per my review of CT of abdomen, no obstructing stones in bilateral kidneys. -CK remarkably normal even though she was immobile for days. Anemia: -Hemoccult negative in the ER. Hemoglobin 6.5, transfused 2 units overnight. Monitor for improvement. Patient denies any hematemesis, melena, bright red blood per rectum. Concern for nutritional component. Will monitor for any signs of blood loss. -Pantoprazole 40 mg orally twice daily Diabetes: Fingersticks ACHS, sliding scale insulin. A1c 4. 8. Suggestive of not being diabetic. Will monitor insulin needs over the next few days. Hypertension: Holding benazepril in the setting of CULLEN. Continue amlodipine daily 10 mg Elevated troponin: - stable at 0.07 throughout the night on serial monitoring . No chest pain. -Cardiology consulted. Evaluated patient, recommend outpatient workup. No interventions at this time and the acute illness setting. UTI: - Urine grossly abnormal with leuk esterase 3+, white count too numerous to count, bacteria 4+. Concern for UTI. Initiated on ceftriaxone. Continue 1 g daily. Culture pending. -White count 7.8 Failure to thrive -Concern for debility and malnutrition. Nutrition consulted to assist. PT and OT consulted to assist with management and dispo recommendations. Will likely need placement for rehab DNR Holding anticoagulant in the setting of anemia Regular diet Rounded on patient after nurse practitioner. Personally examined and interviewed patient. Agree with exam findings and care plan as documented. Adjusted plan as appropriate above. Patient appears quite debilitated, concern for failure to thrive. Concerned about her safety going home. Will likely need placement. Anticipate admission for at least 2 midnights in the hospital. Patient lives alone in 1 story home with 1-2 MANNY. RW to ambulate. Independent with ADLs and fx'l mobility. Subjective I can try to sit up. Instructed Patient on proper hand and foot placement to complete bed mobility from supine->sit @ EOB requiring TD . Patient sat up @ EOB <30 secs with total assistance. Assisted Patient back to supine in bed with needing TD. Objective Patient Orientation Person,Name,Age,Birthday Right Upper Extremity Gross ROM WFL Left Upper Extremity Gross ROM WFL Bed Mobility bed mobility - supine/sit Assist Level Total/Dependent (100%) Rehab OT IP prob,goals,plan Problems Date of Evaluation: 12/24/23 OT IP Problems Bed Mobility,Transfers,Balance ,Self care,Safety Rehab Potential Rehab Potential Good Equipment Needs Assistive Devices Rolling / Wheeled Walker Plan OT intervention Plan Bed Mobility,Transfers,Balance ,Self care,Safety,Therapeutic Exercise OT Plan Frequency Daily Duration LOS Discharge Goals Bed Mobility Ability Assistance x2 Chair Transfer Ability Maximum x 2 (75% assist) Chair Transfer Technique Sit to/from Ambulatory Chair Transfer Assistive Devices Rolling Walker Discharge Plan OT Discharge Plan Recommend placement at this time. Patient requires TD for all bed mobility, transfers and ADLs at this time. Patient to continue skilled OT services while here at [facility]. Eval Complexity Eval Charge Codes 66329 - Low Complexity PHYSICIAN CERTIFICATION: I certify the specified therapy services for Diane Lerma are required, authorized, and reviewed every 30 days.
--- NOTE | 2023-12-24 09:57 | SW/DCPLANNER ---
Addendum entered by Marie Miranda 12/25/23 15:00: Per [facility] auth is still pending at this time. Addendum entered by Marie Miranda 12/24/23 13:31: Niru phillips/ [facility] is unable to meet patient's needs. Catracho phillips/ [facility] stated that she can start precert on this patient today. I have update patient and her sister (Susanna Farrell [phone]). Original Note: I spoke w/ patient this AM regarding plans once medically stable for discharge. PT/OT evaluated patient and recommended SNF level of care at time of discharge. Patient voiced that she is agreeable to placement and prefers to stay in [place]. I informed patient that [facility] is the only facility in [place] in [facility] w/ patient's insurance. Patient is also agreeable to [facility] and [facility] if [facility] can not accept. I will continue to follow up w/ patient and facilities. Discharge date is unknown at this time.
--- NOTE | 2023-12-24 10:06 | HMH.PTEV ---
Physical Therapy Evaluation Rehab PT IP Evaluation Start: 12/23/23 15:30 Freq: ONCE Status: Active Protocol: Document 12/24/23 10:00 RACH (Rec: 12/24/23 10:06 RACH [id number]) Subjective/History History History Per H&P: The patient who had not been contacted for 2 days I was told the niece found her sitting on the couch covered with stool not able to get up. , Patient told the nurse though that she had called 911 . Patient came into the emergency room was covered with stool large amount of rash to the lower body where she had probably been sitting on the couch for 2 days. Labs showed that she was in renal failure with severe anemia also noting elevated troponins . Subjective Subjective PLOF per pt report: Lives alone in single-story home with one MANNY. Used RW for Mod IND ambulation. Still driving prior to hospitalization. New diagnosis of cancer in past 12 No months? Rehab PT IP Eval Objective Appearance Patient Behavior Appropriate,Cooperative Difficulty following instructions none Speech Pattern Clear Ambulation Patient Able to Ambulate No Balance Ability to Arise Able, uses arms to help Sitting Balance Steady, safe Transfers Bed Transfer Ability Moderate x 2 (50% assist) Rehab PT IP prob,goals,plan Problems Date of Evaluation: 12/24/23 PT IP Problems Bed Mobility,Transfers,Gait, Balance,Self care,Safety Rehab Potential Rehab Potential Good Plan PT Intervention Plan Bed Mobility,Transfers,Gait, Balance,Safety,Therapeutic Exercise Other Intervention Plan 1-2 times PT Plan Frequency Daily Duration LOS Discharge Goals Bed Transfer Ability Moderate x 1 (50% assist) Sit to Stand Chair Transfer Ability Maximum x 2 (75% assist) Discharge Plan PT Discharge Plan Initial physical therapy evaluation performed. Pt required Mod A x 2 to perform supine>sit with HOB elevated. Once sitting, pt able to sit statically with SUP. Pt unable to ambulate or perform functional STS d/t weakness. Patient presents below baseline at this time in functional mobility, transfers , and strength. Pt not safe to return home alone at this time d/t current level of functional mobility. PT recommending short-term rehabilitation stay upon d/c from [facility]. Pt would benefit from skilled PT while at [facility] to prevent further functional decline and maximize safety with mobility. Eval Complexity Eval Charge Codes 30547 - Moderate Complexity PHYSICIAN CERTIFICATION: I certify the specified therapy services for Diane Sakshi Lerma are required, authorized, and reviewed every 30 days.
[2023-12-24 10:21] LABS: POC Glucose,Bedside 116 (70-110)
--- NOTE | 2023-12-24 14:25 | PC.NURSE ---
83 yo female pt with admitting Dx of UTI and anemia, pt is aox4, fsbg achs, 90's on RA, f/c in place, up with assistance times 2 to bsc, received two units of blood on admission, Hgb today of 7.1, once ready to d/c bed ready at [facility].
[2023-12-24] MEDS: ACETAMINOPHEN 325MG TAB 650 MG PO (14:51)
[2023-12-24 15:51] LABS: POC Glucose,Bedside 251 (70-110)
[2023-12-24] MEDS: humaLOG 100 UNITS/ML 10ML VIAL (SSI) SQ ×2 (15:58→20:32)
--- NOTE | 2023-12-24 17:48 | EXP.PN ---
Subjective *Date: 12/24/23 *Time: 17:48 Interval history: appears pale, holding conversations and is alert and awake Exam Data for Last 24 hours Vital signs and Labs for Last 24 Hours: Temp Pulse Resp BP Pulse Ox O2 Del Method 98.4 F 96 H 16 116/60 96 Room Air 12/24/23 16:00 12/24/23 16:00 12/24/23 16:00 12/24/23 16:00 12/24/23 16:00 12/24/23 17:00 Laboratory Results - last 24 hr 12/22/23 21:25: Crossmatch (AHG) See Detail 12/23/23 17:50: Sodium 140, Potassium 3.6, Chloride 108 H, Carbon Dioxide 19 L, Anion Gap 16.6 H, BUN 70 H, Creatinine 2.80 H, Estimated Creat Clear 17, Estimated GFR 16 L*, Est GFR ( Amer) 20 L, Glucose 152 H D, Calcium 9.8, TSH 3.50 12/23/23 20:46: POC Glucose 152 H 12/24/23 06:04: POC Glucose 115 H 12/24/23 06:05: WBC 5.3, RBC 2.32 L, Hgb 7.1 L D, Hct 21.9 L, MCV 94.4, MCH 30.8, MCHC 32.6, RDW 18.1 H, Plt Count 110 L, MPV 8.4, Neut % (Auto) 77.7, Lymph % (Auto) 15.8, [place] % (Auto) 5.0, Eos % (Auto) 1.2, Baso % (Auto) 0.3, Neut # (Auto) 4.2, Lymph # (Auto) 0.9, [place] # (Auto) 0.3, Eos # (Auto) 0.1, Baso # (Auto) 0.0, Sodium 137, Potassium 3.4 L, Chloride 112 H, Carbon Dioxide 19 L, Anion Gap 9.4, BUN 59 H, Creatinine 2.40 H, Estimated Creat Clear 21, Estimated GFR 19 L*, Est GFR ( Amer) 23 L, Glucose 103 H D, Calcium 9.0, Phosphorus 3.4, Magnesium 1.7 D, Total Bilirubin 0.5, AST 18, ALT 7 L, Alkaline Phosphatase 58, Total Protein 5.9 L, Albumin 2.5 L D, Globulin 3.4 H, Albumin/Globulin Ratio 0.7 L 12/24/23 10:14: POC Glucose 116 H 12/24/23 15:44: POC Glucose 251 H I & O for Last 24 hours: Intake & Output 12/21/23 12/22/23 12/23/23 12/24/23 23:59 23:59 23:59 23:59 Intake Total 0 / 0 1928 / 1928 1290 / 1290 Output Total 1100 / 1300 400 / 400 Balance 0 / 0 828 / 628 890 / 890 Weight 74.389 kg 71.35 kg 74.57 kg Microbiology Reports for the Last 24 Hours: Microbiology 12/22/23 20:53 Urine,Clean Catch Urine Culture - Preliminary Constitutional Constitutional: no acute distress *Routine HEENT Exam Head: Present normocephalic Eye: Present EOMI and PERRL ENT: Present mucous membranes moist *Routine Neck Exam Neck: Present supple; Absent lymphadenopathy *Routine Respiratory Exam Respiratory: Present CTA bilaterally *Routine Cardiovascular Exam Cardiovascular: Present RRR *Routine Abdominal Exam Abdominal: Present soft and normoactive bowel sounds; Absent tenderness *Routine Extremities Exam Extremities: Absent cyanosis, clubbing or edema *Routine Skin Exam Skin: Present warm; Absent rash *Routine Neurological Exam Neurological: Present alert and oriented X3 Assessment and Plan *Assessment and plan (1) CULLEN (acute kidney injury): Status: Acute Category: Medical Code(s): N17.9 - Acute kidney failure, unspecified (2) Acute UTI: Status: Acute Category: Medical Code(s): N39.0 - Urinary tract infection, site not specified (3) Elevated troponin: Status: Acute Category: Medical Code(s): R79.89 - Other specified abnormal findings of blood chemistry (4) Uremia: Status: Acute Category: Medical Code(s): N19 - Unspecified kidney failure (5) Adult failure to thrive: Status: Acute Category: Medical Code(s): R62.7 - Adult failure to thrive (6) Anemia: Status: Acute Category: Medical Code(s): D64.9 - Anemia, unspecified (7) Self-care deficit: Status: Acute Category: Medical Code(s): Z78.9 - Other specified health status (8) Diabetes mellitus: Status: Acute Qualifiers: Diabetes mellitus type: type 2 Diabetes mellitus correction insulin use: with adjunct faculty for medical terminology use Diabetes mellitus complication status: with hyperglycemia Qualified Code(s): E11.65 - Type 2 diabetes mellitus with hyperglycemia; Z79.4 - rodent exterminator (current) use of insulin Category: Medical Code(s): E11.9 - Type 2 diabetes mellitus without complications (9) Dental decay: Status: Acute Category: Medical Code(s): K02.9 - Dental caries, unspecified (10) At high risk for malnutrition: Status: Acute Category: Medical Code(s): Z91.89 - Other specified personal risk factors, not elsewhere classified (11) Hypertension: Status: Acute Category: Medical Code(s): I10 - Essential (primary) hypertension Plan Ms. Lerma is an 83-year-old female who presented after being found at home seated on her couch for more than 2 days. Acute renal failure Uremia Cr is gradually improving continue Anemia: -Hemoccult negative in the ER. repeat occult, Hemoglobin 6.5 on arrival, transfused 2 units. Monitor for improvement. Patient denies any hematemesis, melena, bright red blood per rectum. -Pantoprazole 40 mg orally twice daily Diabetes: Fingersticks ACHS, sliding scale insulin Hypertension: Holding benazepril in the setting of CULLEN. Continue amlodipine daily 10 mg Elevated troponin: - stable at 0.07 throughout the night on serial monitoring. No chest pain. -Cardiology consulted. Evaluated patient, recommend outpatient workup. No interventions at this time and the acute illness setting. UTI: - Urine grossly abnormal with leuk esterase 3+, white count too numerous to count, bacteria 4+. Concern for UTI. Initiated on ceftriaxone. Culture pending. Failure to thrive -Concern for debility and malnutrition. Nutrition consulted to assist. PT and OT consulted to assist with management and dispo recommendations. Will likely need placement for rehab DNR Holding anticoagulant in the setting of anemia Regular diet consulted PT/OT, DC 1-2 days
[2023-12-24 20:17] LABS: POC Glucose,Bedside 207 (70-110)
[2023-12-25] VITALS (16 sets, daily range): BP systolic 119–163; BP diastolic 55–89; PULSE 84–104; RESP 16–20; TEMP 36.2–37.7; O2SAT 96–99; BMI 28.5
--- NOTE | 2023-12-25 04:42 | PC.NURSE ---
A/O X 3. TURNED AND POSITIONED Q 2 HRS PER STAFF. WEAK. DENIES PAIN. F/C PATENT AND INTACT TO BEDSIDE DRAIN. URINE CLEAR YELLOW. VITAL SIGNS STABLE/AFEBRILE.
[2023-12-25 05:15] LABS: POC Glucose,Bedside 129 (70-110)
[2023-12-25 06:59] LABS: Chloride 111 mmol/L (98-107)
[2023-12-25 07:00] LABS: Albumin Level 2.4 g/dl (3.5-5.0); Potassium 3.6 mmoL/L (3.5-5.1); Sodium 137 mmol/L (136-145)
[2023-12-25 07:02] LABS: Alanine Aminotransferase 7 U/L (12-78); Albumin/Globulin Ratio 0.7 (1.1-1.8); Alkaline Phosphatase 48 U/L (38-126); Anion Gap 8.6 mEq/L (5-15); Aspartate Amino Transferase 17 U/L (14-36); Bilirubin,Total 0.5 mg/dl (0.2-1.3); Blood Urea Nitrogen 52 mg/dl (7-17); Carbon Dioxide 21 mmol/L (22.0-30.0); Creatinine Clearance Estimated 25 mL/min (50-200); Estimated Glomerular Filt Rate 23 ml/min (>60); GFR (African American) 27 ML/MIN (>60); Globulin 3.4 g/dL (1.3-3.2); Total Protein,Serum 5.8 g/dl (6.3-8.2)
[2023-12-25 07:03] LABS: Calcium 8.6 mg/dl (8.4-10.2); Glucose 109 mg/dl (74-100)
[2023-12-25 09:15] LABS: Basophils % 0.1 % (0.1-2.0); Eosinophils # 0.1 K/mm3 (0.0-0.4); Hematocrit 21.5 % (37.0-47.0); Mean Corpuscular HGB Conc 31.5 g/dL (31.8-35.4); Mean Corpuscular Hemoglobin 30.8 pg (27.0-31.2); Mean Corpuscular Volume 97.9 fl (81-99); Mean Platelet Volume 8.6 fl (7.4-10.4); Monocytes # 0.4 K/mm3 (0.1-1.0); Neutrophils # 3.2 K/mm3 (1.8-7.8); Neutrophils % 67.9 % (37.0-80.0); Platelet Count 118 K/mm3 (142-424); Red Cell Distribution Width 17.8 % (11.5-17.5); White Blood Count 4.7 K/mm3 (4.8-10.8)
[2023-12-25] MEDS: PANTOPRAZOLE 40MG VIAL 40 MG IV ×2 (09:15→20:43)
[2023-12-25] MEDS: CEFTRIAXONE 1 GM 1 GM in 0.9 % SODIUM CHLORIDE 50 ML IV (09:15)
[2023-12-25] MEDS: AMLODIPINE 10MG TABLET 10 MG PO (09:15)
[2023-12-25 09:38] LABS: Hemoglobin 6.8 g/dL (12.2-16.2)
[2023-12-25 10:33] LABS: POC Glucose,Bedside 189 (70-110)
[2023-12-25] MEDS: humaLOG 100 UNITS/ML 10ML VIAL (SSI) SQ ×3 (10:42→20:43)
[2023-12-25 10:48] LABS: Iron 37 ug/dL (37-170)
[2023-12-25 10:58] LABS: Total Iron Binding Capacity 175 ug/dL (265-497)
[2023-12-25 12:16] LABS: Occult Blood,Stool Negative (Negative)
--- NOTE | 2023-12-25 14:37 | PC.NURSE ---
Aox 4, assist times two, f/c in place, OB stool sent and (-), PT and OT following patient, 20G L FA with one unit of blood running, HGB this am of 6.8, DNR, plan is to d/c to signature when ready for placement.
[2023-12-25 16:33] LABS: Hematocrit 25.3 % (37.0-47.0)
[2023-12-25 16:44] LABS: Hemoglobin 8.1 g/dL (12.2-16.2)
--- NOTE | 2023-12-25 17:18 | PC.NURSE ---
spoke with Marie Miranda, she stated that patient had been approved for [facility] when she is medically stable for discharge, primary nurse, Yg notified
--- NOTE | 2023-12-25 17:37 | EXP.PN ---
Subjective *Date: 12/25/23 *Time: 17:37 Interval history: patient was seen and evaluated at the bedside. No reported acute events overnight, denies chest pain, shortness of breath, nausea, vomiting, abdominal pain. Exam Data for Last 24 hours Vital signs and Labs for Last 24 Hours: Temp Pulse Resp BP Pulse Ox O2 Del Method 98.6 F 93 H 17 130/65 97 Room Air 12/25/23 16:05 12/25/23 16:05 12/25/23 16:05 12/25/23 16:12/25/23 16:05 12/25/23 17:30 Laboratory Results - last 24 hr 12/22/23 21:25: Blood Type A Negative, Antibody Screen Negative, Crossmatch (AHG) See Detail 12/24/23 20:11: POC Glucose 207 H 12/25/23 05:05: POC Glucose 129 H 12/25/23 06:09: WBC 4.7 L, RBC 2.20 L, Hgb 6.8 L*, Hct 21.5 L, MCV 97.9, MCH 30.8, MCHC 31.5 L, RDW 17.8 H, Plt Count 118 L, MPV 8.6, Neut % (Auto) 67.9, Lymph % (Auto) 22.0, [place] % (Auto) 8.0, Eos % (Auto) 2.0, Baso % (Auto) 0.1, Neut # (Auto) 3.2, Lymph # (Auto) 1.0, [place] # (Auto) 0.4, Eos # (Auto) 0.1, Baso # (Auto) 0.0, Sodium 137, Potassium 3.6, Chloride 111 H, Carbon Dioxide 21 L, Anion Gap 8.6, BUN 52 H, Creatinine 2.10 H, Estimated Creat Clear 25, Estimated GFR 23 L, Est GFR ( Amer) 27 L, Glucose 109 H, Calcium 8.6, Iron 37, TIBC 175 L, Iron Saturation 21.72834, Total Bilirubin 0.5, AST 17, ALT 7 L, Alkaline Phosphatase 48, Total Protein 5.8 L, Albumin 2.4 L, Globulin 3.4 H, Albumin/Globulin Ratio 0.7 L 12/25/23 10:26: POC Glucose 189 H 12/25/23 11:45: Stool Occult Blood Negative 12/25/23 16:25: Hgb 8.1 L D, Hct 25.3 L I & O for Last 24 hours: Intake & Output 12/22/23 12/23/23 12/24/23 12/25/23 23:59 23:59 23:59 23:59 Intake Total 0 / 0 1928 / 1928 1940 / 1940 1290 / 1290 Output Total 1100 / 1300 1075 / 1075 450 / 450 Balance 0 / 0 828 / 628 865 / 865 840 / 840 Weight 74.389 kg 71.35 kg 74.57 kg 75.807 kg Microbiology Reports for the Last 24 Hours: Microbiology 12/22/23 20:53 Urine,Clean Catch Urine Culture - Final No growth. Constitutional Constitutional: no acute distress Comments: appears pale and frail *Routine HEENT Exam Head: Present normocephalic Eye: Present EOMI and PERRL ENT: Present mucous membranes moist *Routine Neck Exam Neck: Present supple; Absent lymphadenopathy *Routine Respiratory Exam Respiratory: Present CTA bilaterally *Routine Cardiovascular Exam Cardiovascular: Present RRR *Routine Abdominal Exam Abdominal: Present soft and normoactive bowel sounds; Absent tenderness *Routine Extremities Exam Extremities: Absent cyanosis, clubbing or edema *Routine Skin Exam Skin: Present warm; Absent rash *Routine Neurological Exam Neurological: Present alert and oriented X3 Assessment and Plan *Assessment and plan (1) CULLEN (acute kidney injury): Status: Acute Category: Medical Code(s): N17.9 - Acute kidney failure, unspecified (2) Acute UTI: Status: Acute Category: Medical Code(s): N39.0 - Urinary tract infection, site not specified (3) Elevated troponin: Status: Acute Category: Medical Code(s): R79.89 - Other specified abnormal findings of blood chemistry (4) Uremia: Status: Acute Category: Medical Code(s): N19 - Unspecified kidney failure (5) Adult failure to thrive: Status: Acute Category: Medical Code(s): R62.7 - Adult failure to thrive (6) Anemia: Status: Acute Category: Medical Code(s): D64.9 - Anemia, unspecified (7) Self-care deficit: Status: Acute Category: Medical Code(s): Z78.9 - Other specified health status (8) Diabetes mellitus: Status: Acute Qualifiers: Diabetes mellitus type: type 2 Diabetes mellitus terminal superintendent insulin use: with terminal superintendent use Diabetes mellitus complication status: with hyperglycemia Qualified Code(s): E11.65 - Type 2 diabetes mellitus with hyperglycemia; Z79.4 - shelter (current) use of insulin Category: Medical Code(s): E11.9 - Type 2 diabetes mellitus without complications (9) Dental decay: Status: Acute Category: Medical Code(s): K02.9 - Dental caries, unspecified (10) At high risk for malnutrition: Status: Acute Category: Medical Code(s): Z91.89 - Other specified personal risk factors, not elsewhere classified (11) Hypertension: Status: Acute Category: Medical Code(s): I10 - Essential (primary) hypertension Plan Ms. Lerma is an 83-year-old female who presented after being found at home seated on her couch for more than 2 days. Acute renal failure Uremia Cr is gradually improving continue Anemia: -Hemoccult negative in the ER. repeat occult negative again, Hemoglobin 6.8 this morning, have been transfused 3 units since admission. Iron levels checked - Iron saturation WNL, may need hemolytic work up and hematology evalaution, if Hb continues to drop will transfer for higher level of care, Monitor for improvement. Patient denies any hematemesis, melena, bright red blood per rectum. -Pantoprazole 40 mg orally twice daily Diabetes: Fingersticks ACHS, sliding scale insulin Hypertension: Holding benazepril in the setting of CULLEN. Continue amlodipine daily 10 mg Elevated troponin: - stable at 0.07 throughout the night on serial monitoring. No chest pain. -Cardiology consulted. Evaluated patient, recommend outpatient workup. No interventions at this time and the acute illness setting. UTI: - Urine grossly abnormal with leuk esterase 3+, white count too numerous to count, bacteria 4+. Concern for UTI. Initiated on ceftriaxone. Culture pending. Failure to thrive -Concern for debility and malnutrition. Nutrition consulted to assist. PT and OT consulted to assist with management and dispo recommendations. Will likely need placement for rehab DNR Holding anticoagulant in the setting of anemia Regular diet consulted PT/OT - will need placement, has been approved, needs anemia work up
[2023-12-25 18:11] LABS: POC Glucose,Bedside 170 (70-110)
[2023-12-25 19:16] LABS: INR 0.97 (0.9-1.1); Prothrombin Time 10.9 seconds (10.1-12.5)
[2023-12-25 19:32] LABS: C-Reactive Protein 148.5 mg/L (0-4)
[2023-12-25 19:36] LABS: Erythrocyte Sedimentation Rate > 140 mm/hr (0-30)
[2023-12-25 20:21] LABS: POC Glucose,Bedside 187 (70-110)
[2023-12-25 20:33] LABS: Vitamin B12 526 pg/mL (239-931)
[2023-12-25 20:35] LABS: Folate 8.24 ng/mL
[2023-12-26] MEDS: ACETAMINOPHEN 325MG TAB 650 MG PO ×2 (00:13→17:01)
[2023-12-26 04:00] VITALS: BP 135/65; PULSE 71; RESP 16; TEMP 36.9; O2SAT 96; BMI 27.7
[2023-12-26 05:18] LABS: POC Glucose,Bedside 130 (70-110)
--- NOTE | 2023-12-26 06:35 | PC.NURSE ---
VITAL SIGNS STABLE, AFEBRILE. NO FURTHER C/O EARACHE. F/C PATENT AND INTACT TO BSD, URINE CLEAR YELLOW. TURNED AND REPOSITIONED Q 2 HRS. BARRIER CREAM APPLIED TO EXCORIATION AT BUTTOCKS AND COCCYX.
[2023-12-26 07:14] LABS: Basophils % 0.4 % (0.1-2.0); Eosinophils # 0.1 K/mm3 (0.0-0.4); Eosinophils % 1.6 % (0.1-12.0); Hematocrit 25.8 % (37.0-47.0); Hemoglobin 8.2 g/dL (12.2-16.2); Lymphocytes # 0.9 K/mm3 (0.7-4.5); Lymphocytes % 22.1 % (10-50); Mean Corpuscular HGB Conc 31.8 g/dL (31.8-35.4); Mean Corpuscular Hemoglobin 30.2 pg (27.0-31.2); Mean Platelet Volume 9.1 fl (7.4-10.4); Monocytes # 0.3 K/mm3 (0.1-1.0); Monocytes % 6.8 % (1.7-9.3); Neutrophils # 2.9 K/mm3 (1.8-7.8); Neutrophils % 69.1 % (37.0-80.0); Platelet Count 134 K/mm3 (142-424); Red Blood Count 2.72 M/mm3 (4.20-5.40); Red Cell Distribution Width 18.2 % (11.5-17.5); White Blood Count 4.2 K/mm3 (4.8-10.8)
[2023-12-26 07:30] LABS: Alanine Aminotransferase 8 U/L (12-78); Albumin Level 2.3 g/dl (3.5-5.0); Albumin/Globulin Ratio 0.6 (1.1-1.8); Alkaline Phosphatase 53 U/L (38-126); Anion Gap 9.7 mEq/L (5-15); Aspartate Amino Transferase 16 U/L (14-36); Bilirubin,Total 0.5 mg/dl (0.2-1.3); Blood Urea Nitrogen 39 mg/dl (7-17); Carbon Dioxide 23 mmol/L (22.0-30.0); Chloride 109 mmol/L (98-107); Creatinine Clearance Estimated 24 mL/min (50-200); Estimated Glomerular Filt Rate 23 ml/min (>60); GFR (African American) 27 ML/MIN (>60); Globulin 3.6 g/dL (1.3-3.2); Glucose 118 mg/dl (74-100); Potassium 3.7 mmoL/L (3.5-5.1); Sodium 138 mmol/L (136-145); Total Protein,Serum 5.9 g/dl (6.3-8.2)
[2023-12-26 08:00] VITALS: BP 151/78; PULSE 98; RESP 18; TEMP 36.6; O2SAT 98
[2023-12-26] MEDS: PANTOPRAZOLE 40MG TABLET 40 MG PO ×2 (08:51→20:30)
[2023-12-26] MEDS: CEFTRIAXONE 1 GM 1 GM in 0.9 % SODIUM CHLORIDE 50 ML IV (08:51)
[2023-12-26] MEDS: AMLODIPINE 10MG TABLET 10 MG PO (08:51)
[2023-12-26] MEDS: humaLOG 100 UNITS/ML 10ML VIAL (SSI) SQ ×3 (11:34→20:23)
[2023-12-26 11:52] LABS: POC Glucose,Bedside 171 (70-110)
--- NOTE | 2023-12-26 15:13 | P.PN_ITS ---
Subjective *Date: 12/26/23 *Time: 15:13 Interval history: Patient was seen and evaluated at the bedside. No reported acute events overnight, denies chest pain, shortness of breath, nausea, vomiting, abdominal pain Exam Data for Last 24 hours Vital signs and Labs for Last 24 Hours: Temp Pulse Resp BP Pulse Ox O2 Del Method 97.8 F 98 H 18 151/78 H 98 Room Air 12/26/23 08:00 12/26/23 08:00 12/26/23 08:00 12/26/23 08:00 12/26/23 08:00 12/26/23 13:00 Laboratory Results - last 24 hr 12/22/23 21:25: Crossmatch (AHG) See Detail 12/25/23 16:01: POC Glucose 170 H 12/25/23 16:25: Hgb 8.1 L D, Hct 25.3 L 12/25/23 18:50: ESR > 140 H, PT 10.9, INR 0.97, C-Reactive Protein 148.5 H, Vitamin B12 526, Folate 8.24, Direct Antiglob Test Negative 12/25/23 20:12: POC Glucose 187 H 12/26/23 05:10: POC Glucose 130 H 12/26/23 06:36: WBC 4.2 L, RBC 2.72 L, Hgb 8.2 L, Hct 25.8 L, MCV 95.0, MCH 30.2, MCHC 31.8, RDW 18.2 H, Plt Count 134 L, MPV 9.1, Neut % (Auto) 69.1, Lymph % (Auto) 22.1, [place] % (Auto) 6.8, Eos % (Auto) 1.6, Baso % (Auto) 0.4, Neut # (Auto) 2.9, Lymph # (Auto) 0.9, [place] # (Auto) 0.3, Eos # (Auto) 0.1, Baso # (Auto) 0.0, Sodium 138, Potassium 3.7, Chloride 109 H, Carbon Dioxide 23, Anion Gap 9.7, BUN 39 H, Creatinine 2.10 H, Estimated Creat Clear 24, Estimated GFR 23 L, Est GFR ( Amer) 27 L, Glucose 118 H, Calcium 9.0, Total Bilirubin 0.5, AST 16, ALT 8 L, Alkaline Phosphatase 53, Total Protein 5.9 L, Albumin 2.3 L, Globulin 3.6 H, Albumin/Globulin Ratio 0.6 L 12/26/23 11:12: POC Glucose 171 H I & O for Last 24 hours: Intake & Output 12/23/23 12/24/23 12/25/23 12/26/23 23:59 23:59 23:59 23:59 Intake Total 1928 / 1928 1940 / 1940 1890 / 1890 520 / 520 Output Total 1100 / 1300 1075 / 1075 1750 / 1750 1999 / 1999 Balance 828 / 628 865 / 865 140 / 140 -1480 / -1480 Weight 71.35 kg 74.57 kg 75.807 kg 73.68 kg Microbiology Reports for the Last 24 Hours: Microbiology 12/22/23 20:53 Urine,Clean Catch Urine Culture - Final No growth. Constitutional Constitutional: no acute distress *Routine HEENT Exam Head: Present normocephalic Eye: Present EOMI and PERRL ENT: Present mucous membranes moist *Routine Neck Exam Neck: Present supple; Absent lymphadenopathy *Routine Respiratory Exam Respiratory: Present CTA bilaterally *Routine Cardiovascular Exam Cardiovascular: Present RRR *Routine Abdominal Exam Abdominal: Present soft and normoactive bowel sounds; Absent tenderness *Routine Extremities Exam Extremities: Absent cyanosis, clubbing or edema *Routine Skin Exam Skin: Present warm; Absent rash *Routine Neurological Exam Neurological: Present alert and oriented X3 Assessment and Plan *Assessment and plan (1) CULLEN (acute kidney injury): Status: Acute Category: Medical Code(s): N17.9 - Acute kidney failure, unspecified (2) Acute UTI: Status: Acute Category: Medical Code(s): N39.0 - Urinary tract infection, site not specified (3) Elevated troponin: Status: Acute Category: Medical Code(s): R79.89 - Other specified abnormal findings of blood chemistry (4) Uremia: Status: Acute Category: Medical Code(s): N19 - Unspecified kidney failure (5) Adult failure to thrive: Status: Acute Category: Medical Code(s): R62.7 - Adult failure to thrive (6) Anemia: Status: Acute Category: Medical Code(s): D64.9 - Anemia, unspecified (7) Self-care deficit: Status: Acute Category: Medical Code(s): Z78.9 - Other specified health status (8) Diabetes mellitus: Status: Acute Qualifiers: Diabetes mellitus type: type 2 Diabetes mellitus skilled nursing insulin use: with termite helper use Diabetes mellitus complication status: with hyperglycemia Qualified Code(s): E11.65 - Type 2 diabetes mellitus with hyperglycemia; Z79.4 - long term care administrator (current) use of insulin Category: Medical Code(s): E11.9 - Type 2 diabetes mellitus without complications (9) Dental decay: Status: Acute Category: Medical Code(s): K02.9 - Dental caries, unspecified (10) At high risk for malnutrition: Status: Acute Category: Medical Code(s): Z91.89 - Other specified personal risk factors, not elsewhere classified (11) Hypertension: Status: Acute Category: Medical Code(s): I10 - Essential (primary) hypertension Plan Ms. Lerma is an 83-year-old female who presented after being found at home seated on her couch for more than 2 days dosaging inability Acute renal failure Uremia Cr is gradually improving continue Renvela 12/23/2018 Benign med visit begin the need to the Anemia Hemoccult negative in the ER. repeat occult negative again, Hemoglobin 6.8 this morning, have been transfused 3 units since admission. Iron levels checked - Iron saturation WNL, may need hemolytic work up and hematology evalaution, if Hb continues to drop will transfer for higher level of care, Monitor for improvement. Patient denies any hematemesis, melena, bright red blood per rectum. Pantoprazole 40 mg orally twice daily Diabetes: Fingersticks ACHS, sliding scale insulin Hypertension: Holding benazepril in the setting of CULLEN. Continue amlodipine daily 10 mg Elevated troponin: - stable at 0.07 throughout the night on serial monitoring. No chest pain. - Cardiology consulted. Evaluated patient, recommend outpatient workup. - No interventions at this time and the acute illness setting. UTI Urine grossly abnormal with leuk esterase 3+, white count too numerous to count, bacteria 4+. Concern for UTI. Initiated on ceftriaxone. Culture pending. Failure to thrive Concern for debility and malnutrition. Nutrition consulted to assist. PT and OT consulted to assist with management and dispo recommendations. Will likely need placement for rehab DNR Holding anticoagulant in the setting of anemia Regular diet Consulted PT/OT - will need placement, has been approved, needs anemia work up
[2023-12-26 15:57] VITALS: BP 153/69; PULSE 90; RESP 17; TEMP 36.7; O2SAT 97
[2023-12-26 17:43] LABS: POC Glucose,Bedside 190 (70-110)
--- NOTE | 2023-12-26 18:42 | PC.NURSE ---
pt has rested in bed throughout shift. she complained of a headache earlier in shift and was treated per MAR, desired effects achieved. blood glucose level at 1100 was 171, and at 1630 was 190, treated per sliding scale. excoriation to anna area/buttocks. currently waiting on placement. call light within reach, no further requests at this time.
[2023-12-26 20:00] VITALS: BP 99/52; PULSE 79; RESP 16; TEMP 36.9; O2SAT 96
[2023-12-26 20:31] LABS: POC Glucose,Bedside 213 (70-110)
[2023-12-27 04:00] VITALS: BP 129/57; PULSE 91; RESP 16; TEMP 36.4; O2SAT 94; BMI 27.7
--- NOTE | 2023-12-27 04:14 | PC.NURSE ---
83 yo female pt admitted with UTI and anemia. Pt is mostly bedfast and has been in bed this shift. Pt has been turned and repositioned. Skin to both buttocks and groin with significant improvement since admission. Applied zinc and barrier cream to both areas. FSBS at 9 pm was 213, covered with 4 units of Humalog. Pt has rested comfortably without complaints the remainder of shift.
[2023-12-27 06:30] LABS: POC Glucose,Bedside 122 (70-110)
[2023-12-27 07:35] LABS: Basophils % 0.4 % (0.1-2.0); Eosinophils # 0.1 K/mm3 (0.0-0.4); Eosinophils % 1.9 % (0.1-12.0); Lymphocytes % 21.2 % (10-50); Mean Corpuscular HGB Conc 32.1 g/dL (31.8-35.4); Mean Corpuscular Hemoglobin 30.7 pg (27.0-31.2); Mean Corpuscular Volume 95.4 fl (81-99); Monocytes # 0.4 K/mm3 (0.1-1.0); Monocytes % 7.4 % (1.7-9.3); Neutrophils # 3.2 K/mm3 (1.8-7.8); Neutrophils % 69.1 % (37.0-80.0); Platelet Count 135 K/mm3 (142-424); Red Blood Count 2.62 M/mm3 (4.20-5.40); Red Cell Distribution Width 17.9 % (11.5-17.5); White Blood Count 4.7 K/mm3 (4.8-10.8)
[2023-12-27 07:42] VITALS: BP 167/90; PULSE 103; RESP 16; TEMP 37.2; O2SAT 98
[2023-12-27] MEDS: CEFTRIAXONE 1 GM 1 GM in 0.9 % SODIUM CHLORIDE 50 ML IV (08:08)
[2023-12-27] MEDS: AMLODIPINE 10MG TABLET 10 MG PO (08:08)
[2023-12-27] MEDS: PANTOPRAZOLE 40MG TABLET 40 MG PO (08:08)
--- NOTE | 2023-12-27 09:56 | EXP.PHA.PN ---
Subjective *Date: 12/27/23 *Time: 09:56 Medical Exam Vital signs and Labs for Last 24 Hours: Vital Signs Temp Pulse Resp BP Pulse Ox O2 Del Method 12/27/23 09:00 Room Air 12/27/23 08:00 Room Air 12/27/23 07:42 99.0 F 103 H 16 167/90 H 98 Room Air 12/27/23 06:48 Room Air 12/27/23 05:00 Room Air 12/27/23 04:00 97.6 F 91 H 16 129/57 L 94 L Room Air 12/27/23 02:59 Room Air 12/27/23 01:00 Room Air 12/26/23 23:00 Room Air 12/26/23 21:00 Room Air 12/26/23 20:00 98.5 F 79 16 99/52 L 96 Room Air 12/26/23 19:38 Room Air 12/26/23 18:46 Room Air 12/26/23 17:00 Room Air 12/26/23 15:57 98.1 F 90 17 153/69 H 97 Room Air 12/26/23 15:00 Room Air 12/26/23 13:00 Room Air 12/26/23 11:00 Room Air Intake and Output 12/26/23 12/27/23 12/27/23 23:59 07:59 15:59 Intake Total 700 / 1760 320 / 320 Output Total 425 / 2800 1200 / 1200 Balance 275 / -1040 -880 / -880 Intake: Intake, Oral Amount 650 / 1710 320 / 320 Intake, Total IV Amount 50 / 50 Ceftriaxone 1 gm 1 gm In 0.9 % 50 / 50 Sodium Chloride 50 ml @ 100 mls /hr IV Q24H [facility] Rx#:[id number] Output: Output, Urine Amount 425 / 2800 1200 / 1200 Other: Number of Unmeasured Voids 0 0 Weight 73.68 kg Patient Weight 12/27/23 23:59 Weight 73.68 kg Laboratory Results - last 24 hr 12/26/23 11:12: POC Glucose 171 H 12/26/23 16:35: POC Glucose 190 H 12/26/23 20:21: POC Glucose 213 H 12/27/23 06:21: POC Glucose 122 H 12/27/23 06:50: WBC 4.7 L, RBC 2.62 L, Hgb 8.0 L, Hct 25.0 L, MCV 95.4, MCH 30.7, MCHC 32.1, RDW 17.9 H, Plt Count 135 L, MPV 9.0, Neut % (Auto) 69.1, Lymph % (Auto) 21.2, Rich % (Auto) 7.4, Eos % (Auto) 1.9, Baso % (Auto) 0.4, Neut # (Auto) 3.2, Lymph # (Auto) 1.0, Rich # (Auto) 0.4, Eos # (Auto) 0.1, Baso # (Auto) 0.0 I & O for Labs for Last 24 Hours: Intake & Output 12/24/23 12/25/23 12/26/23 12/27/23 23:59 23:59 23:59 23:59 Intake Total 1940 / 1940 1890 / 1890 1760 / 1760 320 / 320 Output Total 1075 / 1075 1750 / 1750 2800 / 2800 1200 / 1200 Balance 865 / 865 140 / 140 -1040 / -1040 -880 / -880 Weight 74.57 kg 75.807 kg 73.68 kg 73.68 kg The patient's infection will respond to the chosen ABx?: Yes (URINE CX = NO GROWTH, AFEBRILE OVER 24 HR, WBC 4.7.) Is the patient receiving the right drug, dose, and route?: Yes Could a more targeted ABx be ordered?: No How long ABx needed (days)?: 7
[2023-12-27 10:52] LABS: POC Glucose,Bedside 141 (70-110)
--- NOTE | 2023-12-27 13:48 | EXP.DC.SUM ---
General Admission date:: 12/23/23 Discharge date: 12/27/23 HPI HPI HPI: The patient who had not been contacted for 2 days I was told the niece found her sitting on the couch covered with stool not able to get up., Patient told the nurse though that she had called 911. Patient came into the emergency room was covered with stool large amount of rash to the lower body where she had probably been sitting on the couch for 2 days. Labs showed that she was in renal failure with severe anemia also noting elevated troponins. 12/23/23: Podiatry consult Patient resting in bed awake upon entering the room. She is alert and oriented. She denies any pain at this time, she verbally agreed for me to do a Diabetic foot exam and nail trim at the bedside. Hospital Course Hospital Course Hospital Course: Ms. Lerma is an 83-year-old female who presented after being found at home seated on her couch for more than 2 days dosaging inability. Patient was treated for CULLEN which improved and was stable till DC, patient was also noted to have anemia which worsened post fluid administration - patient however did recieve PRBC x 3 since admission, patient was tested for occult stool blood x 2 and was negative, iron studies were also within normal limitis, patient Hb has been stable for past 2 days and patient was also treated for UTI and Urine culture did not grow any organisms. On the date of discharge, the patient reported feeling stable. The patient was found not to be in any acute distress, and no new abnormalities on physical examination. Further, the patient expressed appropriate understanding of, and agreement with, the discharge recommendations, medications, and plan. Time spent 37 mins Exam Data for Last 24 hours Vital signs and Labs for Last 24 Hours: Temp Pulse Resp BP Pulse Ox O2 Del Method 99.0 F 103 H 16 167/90 H 98 Room Air 12/27/23 07:42 12/27/23 07:42 12/27/23 07:42 12/27/23 07:42 12/27/23 07:42 12/27/23 12:25 Laboratory Results - last 24 hr 12/26/23 16:35: POC Glucose 190 H 12/26/23 20:21: POC Glucose 213 H 12/27/23 06:21: POC Glucose 122 H 12/27/23 06:50: WBC 4.7 L, RBC 2.62 L, Hgb 8.0 L, Hct 25.0 L, MCV 95.4, MCH 30.7, MCHC 32.1, RDW 17.9 H, Plt Count 135 L, MPV 9.0, Neut % (Auto) 69.1, Lymph % (Auto) 21.2, [place] % (Auto) 7.4, Eos % (Auto) 1.9, Baso % (Auto) 0.4, Neut # (Auto) 3.2, Lymph # (Auto) 1.0, [place] # (Auto) 0.4, Eos # (Auto) 0.1, Baso # (Auto) 0.0 12/27/23 10:45: POC Glucose 141 H I & O for Last 24 hours: Intake & Output 12/24/23 12/25/23 12/26/23 12/27/23 23:59 23:59 23:59 23:59 Intake Total 1940 / 1940 1890 / 1890 1760 / 1760 820 / 820 Output Total 1075 / 1075 1750 / 1750 2800 / 2800 1550 / 1550 Balance 865 / 865 140 / 140 -1040 / -1040 -730 / -730 Weight 74.57 kg 75.807 kg 73.68 kg 73.68 kg Constitutional Constitutional: no acute distress *Routine HEENT Exam Head: Present normocephalic Eye: Present EOMI and PERRL ENT: Present mucous membranes moist *Routine Neck Exam Neck: Present supple; Absent lymphadenopathy *Routine Respiratory Exam Respiratory: Present CTA bilaterally *Routine Cardiovascular Exam Cardiovascular: Present RRR *Routine Abdominal Exam Abdominal: Present soft and normoactive bowel sounds; Absent tenderness *Routine Extremities Exam Extremities: Absent cyanosis, clubbing or edema *Routine Skin Exam Skin: Present warm; Absent rash *Routine Neurological Exam Neurological: Present alert and oriented X3 Results Data Completed and Pending Labs on day of discharge: Labs from last 24 hours 12/27/23 12/27/23 12/27/23 10:45 06:50 06:21 WBC 4.7 L RBC 2.62 L Hgb 8.0 L Hct 25.0 L MCV 95.4 MCH 30.7 MCHC 32.1 RDW 17.9 H Plt Count 135 L MPV 9.0 Neut % (Auto) 69.1 Lymph % (Auto) 21.2 [place] % (Auto) 7.4 Eos % (Auto) 1.9 Baso % (Auto) 0.4 Neut # (Auto) 3.2 Lymph # (Auto) 1.0 [place] # (Auto) 0.4 Eos # (Auto) 0.1 Baso # (Auto) 0.0 POC Glucose 141 H 122 H 12/26/23 12/26/23 20:21 16:35 WBC RBC Hgb Hct MCV MCH MCHC RDW Plt Count MPV Neut % (Auto) Lymph % (Auto) [place] % (Auto) Eos % (Auto) Baso % (Auto) Neut # (Auto) Lymph # (Auto) [place] # (Auto) Eos # (Auto) Baso # (Auto) POC Glucose 213 H 190 H DS: Diagnosis Discharge Diagnosis (1) CULLEN (acute kidney injury): Status: Acute Code(s): N17.9 - Acute kidney failure, unspecified (2) Acute UTI: Status: Acute Code(s): N39.0 - Urinary tract infection, site not specified (3) Elevated troponin: Status: Acute Code(s): R79.89 - Other specified abnormal findings of blood chemistry (4) Uremia: Status: Acute Code(s): N19 - Unspecified kidney failure (5) Adult failure to thrive: Status: Acute Code(s): R62.7 - Adult failure to thrive (6) Anemia: Status: Acute Code(s): D64.9 - Anemia, unspecified (7) Self-care deficit: Status: Acute Code(s): Z78.9 - Other specified health status (8) Diabetes mellitus: Status: Acute Code(s): E11.9 - Type 2 diabetes mellitus without complications Qualifiers: Diabetes mellitus type: type 2 Diabetes mellitus nursing home insulin use: with nursing home use Diabetes mellitus complication status: with hyperglycemia Qualified Code(s): E11.65 - Type 2 diabetes mellitus with hyperglycemia; Z79.4 - retirement (current) use of insulin (9) Dental decay: Status: Acute Code(s): K02.9 - Dental caries, unspecified (10) At high risk for malnutrition: Status: Acute Code(s): Z91.89 - Other specified personal risk factors, not elsewhere classified (11) Hypertension: Status: Acute Code(s): I10 - Essential (primary) hypertension Meds Home Medications and Allergies Home Medications ?Medication ?Instructions ?Recorded ?Confirmed ?Type aspirin 81 mg tablet,delayed 81 mg PO DAILY 06/22/19 12/23/23 History release insulin NPH-regular 70-30 U-100 18 unit SQ DAILY 06/22/19 12/23/23 History insulin 100 unit/mL subcutaneous pen amlodipine 10 mg tablet 10 mg PO DAILY 12/23/23 12/23/23 History benazepril 20 mg tablet 20 mg PO DAILY 12/23/23 12/23/23 History insulin aspar prot-insulin aspart 10 unit SQ HS 12/23/23 12/23/23 History 100 unit/mL (70-30) subcutaneous pen (Novolog Mix 70-30FlexPen U-100) pravastatin 10 mg tablet 10 mg PO DAILY 12/23/23 12/23/23 History pantoprazole 40 mg tablet,delayed 40 mg PO BID 7 days #14 tabs 12/27/23 Rx release New Prescriptions to Start Prescriptions: Ivette Hoover Allergies Allergy/AdvReac Type Severity Reaction Status Date / Time No Known Allergies Allergy Verified 07/12/19 08:11 Discharge Plan Disposition Patient Disposition: Xfer SNF Condition: Good Discharge Order Discharge Orders: Discharge Order (Routine); Ordered 12/27/23 Ordered By: Ivette Malcolm Follow up Plan Follow up with: Marina Magallon APRN [Nurse Practitioner] - 03/23/24 10:00 am Prescriptions/Medication Reconciliation: New pantoprazole 40 mg Tablet,Delayed Release (Dr/Ec) 40 mg PO BID 7 Days Qty: 14 0RF Continued aspirin 81 MG tablet,delayed release (DR/EC) 81 mg PO DAILY insulin NPH and regular human 100 UNIT/ML insulin pen 18 unit SQ DAILY Rx Instructions: ADMINISTER 18 UNITS UNDER THE SKIN IN THE MORNING AND 10 UNITS IN THE EVENING pravastatin 10 mg tablet 10 mg PO DAILY amlodipine 10 mg tablet 10 mg PO DAILY benazepril 20 mg tablet 20 mg PO DAILY insulin asp prt-insulin aspart [Novolog Mix 70-30FlexPen U-100] 100 unit/mL (70-30) insulin pen 10 unit SQ HS Patient Comments: ADMINISTER 18 UNITS UNDER THE SKIN IN THE MORNING AND 10 UNITS IN THE EVENING Rx Instructions: ADMINISTER 18 UNITS UNDER THE SKIN IN THE MORNING AND 10 UNITS IN THE EVENING Problem Reconciliation Problems Reviewed?: Yes Patient Discharge Instructions ACTIVITY: Ambulate as tolerated DIET: continue same diet Patient Instructions: Anemia, DI for Muscle Weakness, DI for Acute Kidney Injury, Catheter-Associated Urinary Tract Infection Print Language: Syriac Providers Primary Care Provider: Elizabeth Machuca Admit Provider: Jony Sharp Attending Provider: Jony Sharp
--- NOTE | 2023-12-27 14:11 | PC.NURSE ---
attempted to call report to [facility] in [facility]. staff was not aware of a pending transfer and stated they would have to contact admission coordinator.
[2023-12-27] MEDS: humaLOG 100 UNITS/ML 10ML VIAL (SSI) SQ (15:32)
[2023-12-27 15:35] LABS: POC Glucose,Bedside 154 (70-110)
[2023-12-27 16:00] VITALS: BP 140/69; PULSE 85; RESP 16; TEMP 36.6; O2SAT 96
== END 2023-12-27 18:22 | DRG 812 ==
LOC: ER 21:36 → 2ND 12-23 00:43
PROVIDERS: Internal Medicine; Nurse Practitioner Family; Physician Assistant; Admitting Provider Internal Medicine Adolescent Medicine; Emergency Provider Emergency Medicine; PCP Family Medicine; Visit Provider Internal Medicine Adolescent Medicine
DX: D64.9 Anemia, unspecified (principal); N17.9 Acute kidney failure, unspecified; N18.9 Chronic kidney disease, unspecified; E11.22 Type 2 diabetes mellitus with diabetic chronic kidney disease; E11.65 Type 2 diabetes mellitus with hyperglycemia; M79.675 Pain in left toe(s); R62.7 Adult failure to thrive; I12.9 Hypertensive chronic kidney disease with stage 1 through stage 4 chronic kidney disease, or unspecified chronic kidney disease; Z79.4 Long term (current) use of insulin; Z66 Do not resuscitate; Z73.89 Other problems related to life management difficulty
CPT/HCPCS: 36415; 51702; 70450; 71250; 74176; 80048; 80050; 80053; 81001; 82272; 82550; 82607; 82746; 82962; 83036; 83540; 83550; 83605; 83735; 84100; 84145; 84443; 84484; 85014; 85018; 85025; 85610; 85651; 86140; 86850; 86880; 87086; 93005; 93306; 97110; 97162; 97165; 97530; 99285; G0328; J0696; J7120; P9016

== ENCOUNTER 2024-01-07 13:13 | Outpatient (CLI) | payer MEDICARE, SELFPAY ==
[2024-01-07 13:32] LABS: Basophils % 0.8 % (0.1-2.0); Eosinophils % 0.7 % (0.1-12.0); Hematocrit 27.3 % (37.0-47.0); Hemoglobin 8.4 g/dL (12.2-16.2); Lymphocytes # 1.7 K/mm3 (0.7-4.5); Lymphocytes % 33.7 % (10-50); Mean Corpuscular HGB Conc 30.7 g/dL (31.8-35.4); Mean Corpuscular Hemoglobin 30.2 pg (27.0-31.2); Mean Corpuscular Volume 98.2 fl (81-99); Mean Platelet Volume 8.2 fl (7.4-10.4); Monocytes # 0.2 K/mm3 (0.1-1.0); Monocytes % 3.9 % (1.7-9.3); Neutrophils # 3.1 K/mm3 (1.8-7.8); Neutrophils % 60.9 % (37.0-80.0); Platelet Count 244 K/mm3 (142-424); Red Blood Count 2.77 M/mm3 (4.20-5.40); Red Cell Distribution Width 17.2 % (11.5-17.5); White Blood Count 5.1 K/mm3 (4.8-10.8)
[2024-01-07 17:18] LABS: Albumin Level 3.1 g/dl (3.5-5.0)
[2024-01-07 17:21] LABS: Alanine Aminotransferase 27 U/L (12-78); Albumin/Globulin Ratio 0.8 (1.1-1.8); Alkaline Phosphatase 74 U/L (38-126); Aspartate Amino Transferase 30 U/L (14-36); Bilirubin,Total 0.5 mg/dl (0.2-1.3); Calcium 9.1 mg/dl (8.4-10.2); Globulin 3.8 g/dL (1.3-3.2); Glucose 110 mg/dl (74-100); Total Protein,Serum 6.9 g/dl (6.3-8.2)
[2024-01-07 17:34] LABS: Anion Gap 18.1 mEq/L (5-15); Blood Urea Nitrogen 63 mg/dl (7-17); Carbon Dioxide 23 mmol/L (22.0-30.0); Chloride 106 mmol/L (98-107); Estimated Glomerular Filt Rate 14 ml/min (>60); GFR (African American) 17 ML/MIN (>60); Potassium 5.1 mmoL/L (3.5-5.1); Sodium 142 mmol/L (136-145)
== END 2024-01-07 23:59 | disposition home or self-care (01) ==
LOC: LAB.DROPOF 13:14
PROVIDERS: PCP Family Medicine; Visit Provider Family Medicine
DX: D64.9 Anemia, unspecified (principal)
CPT/HCPCS: 80053; 85025

== ENCOUNTER 2024-01-13 13:14 | Outpatient (CLI) | payer MEDICARE, SELFPAY ==
--- NOTE | 2024-01-13 13:22 | US_ITS ---
FINAL REPORT TECHNIQUE: Sonographic images of the thyroid were obtained. CLINICAL HISTORY: Thyroid cysts. FINDINGS: THYROID ULTRASOUND The right thyroid gland measures 3.48 x 1 2.18 x 1.55 cm. The left thyroid gland measures 5.29 x 4.14 x 3.74 cm. There are a multitude of hypoechoic and anechoic structures bilaterally. A dominant focus in the right upper pole measures 1.1 cm and is consistent with a TR 1 nodule. There are TR 3 lesions in the right lobe measuring up to 0.7 cm. In the left lobe, there is a dominant anechoic structure measuring 4.4 x 4.5 cm consistent with a TR 1 nodule. IMPRESSION: Predominantly cystic structures in both thyroid lobes. No further follow-up is required. Reviewed, Interpreted and Dictated by Parag Ornelas MD Transcribed by Shruthi Rodriguez Authenticated and [facility]
== END 2024-01-13 23:59 | disposition home or self-care (01) ==
LOC: RAD 13:18
PROVIDERS: PCP Family Medicine; Visit Provider Family Medicine
DX: E04.1 Nontoxic single thyroid nodule (principal)
CPT/HCPCS: 76536

== ENCOUNTER 2024-02-10 15:41 | Observation (INO) | payer MEDICARE, SELFPAY ==
[2024-02-10] VITALS (28 sets, daily range): BP systolic 105–148; BP diastolic 48–71; PULSE 81–104; RESP 16–38; TEMP 36.3–37.2; O2SAT 94–101; BMI 29.5; BMI 13.3
--- NOTE | 2024-02-10 15:42 | HMH.EDGENADL ---
Discharge Plan Disposition Patient Disposition: Admitted Condition: Good Clinical Impressions Clinical Impression: Anemia Qualifiers: Anemia type: unspecified type Qualified Code(s): D64.9 - Anemia, unspecified Discharge ED Provider: Howard Benson General Adult HPI <RACHEL Bradley - Last Filed: 02/10/24 21:22> General Chief complaint: Weakness Stated complaint: LOW HEMAGLOBIN Time Seen by Provider: 02/10/24 15:48 History of Present Illness HPI narrative: Patient presents for evaluation of reported low hemoglobin. Patient had routine lab work done at a physician's office in [place] today and was told to come to the ER for transfusion. We unfortunately do not have the labs available to us. Patient herself has no complaints denies chest pain shortness of breath fever chills hemoptysis hematochezia melena nausea vomit diarrhea. Related Data Home Medications ?Medication ?Instructions ?Recorded ?Confirmed aspirin 81 mg tablet,delayed 81 mg PO DAILY 06/22/19 01/07/24 release insulin aspar prot-insulin aspart 10 unit SQ QAM 01/05/24 01/07/24 100 unit/mL (70-30) subcutaneous pen (Novolog Mix 70-30FlexPen U-100) Previous Rx's ?Medication ?Instructions ?Recorded pantoprazole 40 mg tablet,delayed 40 mg PO BID 7 days #14 tabs 12/27/23 release acetaminophen 500 mg tablet 1,000 mg (2 x 500 mg) PO BID #120 01/05/24 tabs amlodipine 5 mg tablet 5 mg PO DAILY #90 tabs 01/05/24 benazepril 10 mg tablet 10 mg PO DAILY #90 tabs 01/05/24 pravastatin 20 mg tablet 20 mg PO DAILY #90 tabs 01/05/24 saxagliptin 2.5 mg tablet 2.5 mg PO DAILY #90 tabs 01/26/24 Allergies Allergy/AdvReac Type Severity Reaction Status Date / Time No Known Allergies Allergy Verified 01/07/24 15:02 PFSH <RACHEL Bradley - Last Filed: 02/10/24 21:22> [facility] Disclaimer: The information contained in this section may have been updated after the patient was seen, as this information can be updated by other users. Medical History (Updated 02/10/24 @ 20:34 by RACHEL Bradley) Thyroid cyst CULLEN (acute kidney injury) Generalized weakness Effusion, right shoulder Knee pain Hyperlipidemia Diabetes mellitus Dental decay Hypertension GERD without esophagitis Concussion Contusion of scalp Forehead laceration Nose fracture Acute UTI Contusion of nose, initial encounter Elevated troponin Uremia Social History Smoking Status: Never smoker alcohol intake: never current occupational status: retired Travel in the last 8 weeks: None housing: house marital status: single current occupational exposures/hazards: No caffeine: Yes <RACHEL Bradley - Last Filed: 02/10/24 21:22> ROS Obtained: Yes Systems reviewed as appropriate & no additional complaints except as documented Physical Exam <RACHEL Bradley - Last Filed: 02/10/24 21:22> General General appearance: alert and in no apparent distress ENT ENT exam: Present other (Severe dental caries) Respiratory Respiratory exam: Present normal lung sounds bilaterally Cardiovascular Cardiovascular exam: Present regular rate Neurological Exam Neurological exam: Present alert and oriented X3 Medical Decision Making <RACHEL Bradley - Last Filed: 02/10/24 21:22> Medical Records Medical records reviewed: Yes I reviewed the patient's medical records. Screening: Per USPSTF and CDC recommendations, given the prevalence of disease in our region, it is our hospital?s policy to screen for HIV and viral Hepatitis for all patients aged 18 and over and those with ongoing risk factors. [place] Inquiry Pt receiving controlled substance: No Vital Signs: 02/10/24 15:46 02/10/24 15:48 02/10/24 16:00 Temperature 97.6 F Temperature Source Oral Pulse Rate 99 H 90 Pulse Rate [Right Brachial] 100 H Respiratory Rate 16 TAR Vitals Timing Blood Pressure 121/62 113/55 L Blood Pressure [Right Arm] 121/62 Blood Pressure Mean Blood Pressure Mean [Right Arm] 81 Blood Pressure Source Blood Pressure Source [Right Arm] Automatic Cuff Blood Pressure Position Blood Pressure Position [Right Arm] Sitting 02 Sat by Pulse Oximetry 100 99 100 Oxygen Delivery Method Room Air 02/10/24 16:30 02/10/24 17:00 02/10/24 17:30 Temperature Temperature Source Pulse Rate 91 H 96 H 94 H Pulse Rate [Right Brachial] Respiratory Rate TAR Vitals Timing Blood Pressure 134/63 131/63 133/59 L Blood Pressure [Right Arm] Blood Pressure Mean Blood Pressure Mean [Right Arm] Blood Pressure Source Blood Pressure Source [Right Arm] Blood Pressure Position Blood Pressure Position [Right Arm] 02 Sat by Pulse Oximetry 100 97 97 Oxygen Delivery Method Room Air Room Air 02/10/24 18:01 02/10/24 18:28 02/10/24 18:30 Temperature Temperature Source Pulse Rate 103 H 101 H 104 H Pulse Rate [Right Brachial] Respiratory Rate TAR Vitals Timing Blood Pressure 110/55 L 136/67 143/67 H Blood Pressure [Right Arm] Blood Pressure Mean Blood Pressure Mean [Right Arm] Blood Pressure Source Blood Pressure Source [Right Arm] Blood Pressure Position Blood Pressure Position [Right Arm] 02 Sat by Pulse Oximetry 100 99 98 Oxygen Delivery Method 02/10/24 18:30 02/10/24 18:35 02/10/24 18:40 Temperature 98.5 F 98.9 F 98.6 F Temperature Source Oral Tympanic Temporal Artery Scan Pulse Rate 102 H 99 H 101 H Pulse Rate [Right Brachial] Respiratory Rate 16 16 20 TAR Vitals Timing Pre-Blood Vitals Start Vitals 5 Minute Blood Pressure 143/67 H 128/58 L 136/63 Blood Pressure [Right Arm] Blood Pressure Mean 92 81 87 Blood Pressure Mean [Right Arm] Blood Pressure Source Automatic Cuff Automatic Cuff Automatic Cuff Blood Pressure Source [Right Arm] Blood Pressure Position Sitting Sitting Sitting Blood Pressure Position [Right Arm] 02 Sat by Pulse Oximetry 97 101 H 99 Oxygen Delivery Method 02/10/24 18:45 02/10/24 18:50 02/10/24 19:00 Temperature 98.5 F 98.4 F Temperature Source Temporal Artery Scan Pulse Rate 97 H 99 H 102 H Pulse Rate [Right Brachial] Respiratory Rate 22 26 H 38 H TAR Vitals Timing 10 Minute 15 Minute Blood Pressure 122/58 L 131/61 123/60 Blood Pressure [Right Arm] Blood Pressure Mean 79 84 Blood Pressure Mean [Right Arm] Blood Pressure Source Automatic Cuff Automatic Cuff Blood Pressure Source [Right Arm] Blood Pressure Position Sitting Sitting Blood Pressure Position [Right Arm] 02 Sat by Pulse Oximetry 97 98 97 Oxygen Delivery Method 02/10/24 19:05 02/10/24 19:15 02/10/24 19:20 Temperature 98.4 F 98.4 F Temperature Source Oral Oral Pulse Rate 97 H 98 H 99 H Pulse Rate [Right Brachial] Respiratory Rate 20 20 20 TAR Vitals Timing 30 Minute 45 Minute Blood Pressure 123/60 122/54 L 122/54 L Blood Pressure [Right Arm] Blood Pressure Mean 81 76 Blood Pressure Mean [Right Arm] Blood Pressure Source Automatic Cuff Automatic Cuff Blood Pressure Source [Right Arm] Blood Pressure Position Supine Supine Blood Pressure Position [Right Arm] 02 Sat by Pulse Oximetry 98 97 97 Oxygen Delivery Method 02/10/24 19:31 02/10/24 19:35 02/10/24 19:45 Temperature 98.4 F Temperature Source Oral Pulse Rate 90 91 H 91 H Pulse Rate [Right Brachial] Respiratory Rate 24 17 19 TAR Vitals Timing 60 Minute Blood Pressure 105/48 L 105/48 L 115/59 L Blood Pressure [Right Arm] Blood Pressure Mean 67 Blood Pressure Mean [Right Arm] Blood Pressure Source Automatic Cuff Blood Pressure Source [Right Arm] Blood Pressure Position Supine Blood Pressure Position [Right Arm] 02 Sat by Pulse Oximetry 94 L 97 95 Oxygen Delivery Method 02/10/24 20:00 02/10/24 20:15 02/10/24 21:15 Temperature 98.3 F 98.3 F Temperature Source Oral Oral Pulse Rate 93 H 91 H 89 Pulse Rate [Right Brachial] Respiratory Rate 19 17 20 TAR Vitals Timing Completion Vitals 1 Hour Post Infusion Blood Pressure 132/65 132/65 141/65 H Blood Pressure [Right Arm] Blood Pressure Mean 87 90 Blood Pressure Mean [Right Arm] Blood Pressure Source Automatic Cuff Automatic Cuff Blood Pressure Source [Right Arm] Blood Pressure Position Sitting Supine Blood Pressure Position [Right Arm] 02 Sat by Pulse Oximetry 98 98 96 Oxygen Delivery Method 02/10/24 21:24 Temperature 98.4 F Temperature Source Oral Pulse Rate 81 Pulse Rate [Right Brachial] Respiratory Rate 20 TAR Vitals Timing Blood Pressure 120/54 L Blood Pressure [Right Arm] Blood Pressure Mean Blood Pressure Mean [Right Arm] Blood Pressure Source Automatic Cuff Blood Pressure Source [Right Arm] Blood Pressure Position Supine Blood Pressure Position [Right Arm] 02 Sat by Pulse Oximetry Oxygen Delivery Method Room Air Lab Data Lab results reviewed: Yes I reviewed the patient's lab results. Lab Results 02/10/24 16:00: WBC 4.7 L, RBC 1.99 L*, Hgb 6.1 L*, Hct 19.9 L*, MCV 100.0 H, MCH 31.0, MCHC 30.9 L, RDW 17.9 H, Plt Count 216, MPV 9.2, Neut % (Auto) 68.4, Lymph % (Auto) 25.6, Gibson % (Auto) 4.9, Eos % (Auto) 0.9, Baso % (Auto) 0.3, Neut # (Auto) 3.2, Lymph # (Auto) 1.2, Gibson # (Auto) 0.2, Eos # (Auto) 0.0, Baso # (Auto) 0.0, PT 10.0 L, INR 0.88 L, Sodium 136, Potassium 5.0, Chloride 106, Carbon Dioxide 22, Anion Gap 13.0, BUN 67 H, Creatinine 3.10 H, Estimated Creat Clear 17, Estimated GFR 14 L*, Est GFR ( Amer) 17 L*, Glucose 106 H, Calcium 10.3 H, Iron 61, TIBC 262 L, Iron Saturation 23.29169, Total Bilirubin 0.4, AST 22, ALT 13, Alkaline Phosphatase 57, Total Protein 7.2, Albumin 3.2 L, Globulin 4.0 H, Albumin/Globulin Ratio 0.8 L, HIV 1&2 Antibody Rapid Nonreactive, Blood Type A Negative, Antibody Screen Negative, Crossmatch (AHG) See Detail 02/10/24 20:59: Hgb 6.4 L*, Hct 20.1 L* 02/10/24 20:59 02/10/24 16:00 Orders (Tests/Meds): ED MEDICATIONS Generic Name Dose Route Start Last Admin Trade Name Freq PRN Reason Stop Dose Admin Sodium Chloride 250 mls @ 25 mls/hr 02/10/24 16:30 02/10/24 18:35 Sod Chlor 0.9% 250ml Bag IV 02/11/24 16:29 25 mls/hr .Q10H CECELIA Administration ORDERS Category Date Time Status Red Blood Cells Stat BBK 02/10/24 16:00 Completed Type and Screen Stat BBK 02/10/24 16:00 Completed CBC w/Auto Diff [Complete Blood Count Auto Diff] Stat Lab 02/10/24 16:00 Completed CMP [Comprehensive Metabolic Panel] Stat Lab 02/10/24 16:00 Completed HIV (1&2) Antibody Rapid Stat Lab 02/10/24 16:00 Completed Hemoglobin & Hematocrit, Post Timed Lab 02/10/24 20:59 Completed Hep C Ab with Reflex to RNA Stat Lab 02/10/24 16:00 Received INR [Prothrombin Time INR] Stat Lab 02/10/24 16:00 Completed Iron and TIBC Stat Lab 02/10/24 16:00 Completed Medical Decision Narrative: In summary patient is a 84-year-old female who presents to the emergency department for evaluation of abnormal lab results. Patient is hemodynamically stable upon arrival, febrile. Physical exam is remarkable only for dental caries but otherwise is unremarkable and nonfocal including normal breath sounds normal heart sounds normal heart rate looks to be sinus rhythm on the monitor. Differential diagnosis includes iron deficiency anemia versus GI losses versus anemia of chronic disease etc. Initial workup will be conducted with hematologic labs type and screen. Initial interventions were considered however patient currently has no evidence of active bleeding nor any complaints thus interventions deferred for now. Initial workup reviewed by me indeed shows that she has a hemoglobin of 6.1 with a GFR of 14 for creatinine of 3.1 a BUN of 67 total iron of 61 and total iron binding capacity of 262 which is slightly low and an iron saturation of 23% with the remainder of her hematologic labs being nonactionable. It is still not clear where the red blood cell loss is occurring however given her chronic kidney disease low iron stores possible primary contributing factor. She did have stool for occult blood x 3 that were reportedly negative but she may need upper and lower endoscopy to rule out an occult source of blood loss. Given this we will transfuse 1 unit of packed red blood cells and repeated H&H 1 hour after. Upon repeat H&H her hemoglobin only came up to 6.4 and hematocrit of 20.1 given that I had interact discussion with hospital medicine and she will be admitted for further evaluation and care. <Howard Benson MD - Last Filed: 02/10/24 21:34> Vital Signs: 02/10/24 15:46 02/10/24 15:48 02/10/24 16:00 Temperature 97.6 F Temperature Source Oral Pulse Rate 99 H 90 Pulse Rate [Right Brachial] 100 H Respiratory Rate 16 TAR Vitals Timing Blood Pressure 121/62 113/55 L Blood Pressure [Right Arm] 121/62 Blood Pressure Mean Blood Pressure Mean [Right Arm] 81 Blood Pressure Source Blood Pressure Source [Right Arm] Automatic Cuff Blood Pressure Position Blood Pressure Position [Right Arm] Sitting 02 Sat by Pulse Oximetry 100 99 100 Oxygen Delivery Method Room Air 09/25/24 16:30 02/10/24 17:00 02/10/24 17:30 Temperature Temperature Source Pulse Rate 91 H 96 H 94 H Pulse Rate [Right Brachial] Respiratory Rate TAR Vitals Timing Blood Pressure 134/63 131/63 133/59 L Blood Pressure [Right Arm] Blood Pressure Mean Blood Pressure Mean [Right Arm] Blood Pressure Source Blood Pressure Source [Right Arm] Blood Pressure Position Blood Pressure Position [Right Arm] 02 Sat by Pulse Oximetry 100 97 97 Oxygen Delivery Method Room Air Room Air 02/10/24 18:01 02/10/24 18:28 02/10/24 18:30 Temperature Temperature Source Pulse Rate 103 H 101 H 104 H Pulse Rate [Right Brachial] Respiratory Rate TAR Vitals Timing Blood Pressure 110/55 L 136/67 143/67 H Blood Pressure [Right Arm] Blood Pressure Mean Blood Pressure Mean [Right Arm] Blood Pressure Source Blood Pressure Source [Right Arm] Blood Pressure Position Blood Pressure Position [Right Arm] 02 Sat by Pulse Oximetry 100 99 98 Oxygen Delivery Method 02/10/24 18:30 02/10/24 18:35 02/10/24 18:40 Temperature 98.5 F 98.9 F 98.6 F Temperature Source Oral Tympanic Temporal Artery Scan Pulse Rate 102 H 99 H 101 H Pulse Rate [Right Brachial] Respiratory Rate 16 16 20 TAR Vitals Timing Pre-Blood Vitals Start Vitals 5 Minute Blood Pressure 143/67 H 128/58 L 136/63 Blood Pressure [Right Arm] Blood Pressure Mean 92 81 87 Blood Pressure Mean [Right Arm] Blood Pressure Source Automatic Cuff Automatic Cuff Automatic Cuff Blood Pressure Source [Right Arm] Blood Pressure Position Sitting Sitting Sitting Blood Pressure Position [Right Arm] 02 Sat by Pulse Oximetry 97 101 H 99 Oxygen Delivery Method 02/10/24 18:45 02/10/24 18:50 02/10/24 19:00 Temperature 98.5 F 98.4 F Temperature Source Temporal Artery Scan Pulse Rate 97 H 99 H 102 H Pulse Rate [Right Brachial] Respiratory Rate 22 26 H 38 H TAR Vitals Timing 10 Minute 15 Minute Blood Pressure 122/58 L 131/61 123/60 Blood Pressure [Right Arm] Blood Pressure Mean 79 84 Blood Pressure Mean [Right Arm] Blood Pressure Source Automatic Cuff Automatic Cuff Blood Pressure Source [Right Arm] Blood Pressure Position Sitting Sitting Blood Pressure Position [Right Arm] 02 Sat by Pulse Oximetry 97 98 97 Oxygen Delivery Method 02/10/24 19:05 02/10/24 19:15 02/10/24 19:20 Temperature 98.4 F 98.4 F Temperature Source Oral Oral Pulse Rate 97 H 98 H 99 H Pulse Rate [Right Brachial] Respiratory Rate 20 20 20 TAR Vitals Timing 30 Minute 45 Minute Blood Pressure 123/60 122/54 L 122/54 L Blood Pressure [Right Arm] Blood Pressure Mean 81 76 Blood Pressure Mean [Right Arm] Blood Pressure Source Automatic Cuff Automatic Cuff Blood Pressure Source [Right Arm] Blood Pressure Position Supine Supine Blood Pressure Position [Right Arm] 02 Sat by Pulse Oximetry 98 97 97 Oxygen Delivery Method 02/10/24 19:31 02/10/24 19:35 02/10/24 19:45 Temperature 98.4 F Temperature Source Oral Pulse Rate 90 91 H 91 H Pulse Rate [Right Brachial] Respiratory Rate 24 17 19 TAR Vitals Timing 60 Minute Blood Pressure 105/48 L 105/48 L 115/59 L Blood Pressure [Right Arm] Blood Pressure Mean 67 Blood Pressure Mean [Right Arm] Blood Pressure Source Automatic Cuff Blood Pressure Source [Right Arm] Blood Pressure Position Supine Blood Pressure Position [Right Arm] 02 Sat by Pulse Oximetry 94 L 97 95 Oxygen Delivery Method 02/10/24 20:00 02/10/24 20:15 02/10/24 21:15 Temperature 98.3 F 98.3 F Temperature Source Oral Oral Pulse Rate 93 H 91 H 89 Pulse Rate [Right Brachial] Respiratory Rate 19 17 20 TAR Vitals Timing Completion Vitals 1 Hour Post Infusion Blood Pressure 132/65 132/65 141/65 H Blood Pressure [Right Arm] Blood Pressure Mean 87 90 Blood Pressure Mean [Right Arm] Blood Pressure Source Automatic Cuff Automatic Cuff Blood Pressure Source [Right Arm] Blood Pressure Position Sitting Supine Blood Pressure Position [Right Arm] 02 Sat by Pulse Oximetry 98 98 96 Oxygen Delivery Method 02/10/24 21:24 Temperature 98.4 F Temperature Source Oral Pulse Rate 81 Pulse Rate [Right Brachial] Respiratory Rate 20 TAR Vitals Timing Blood Pressure 120/54 L Blood Pressure [Right Arm] Blood Pressure Mean Blood Pressure Mean [Right Arm] Blood Pressure Source Automatic Cuff Blood Pressure Source [Right Arm] Blood Pressure Position Supine Blood Pressure Position [Right Arm] 02 Sat by Pulse Oximetry Oxygen Delivery Method Room Air Lab Data Lab Results 02/10/24 16:00: WBC 4.7 L, RBC 1.99 L*, Hgb 6.1 L*, Hct 19.9 L*, MCV 100.0 H, MCH 31.0, MCHC 30.9 L, RDW 17.9 H, Plt Count 216, MPV 9.2, Neut % (Auto) 68.4, Lymph % (Auto) 25.6, Gibson % (Auto) 4.9, Eos % (Auto) 0.9, Baso % (Auto) 0.3, Neut # (Auto) 3.2, Lymph # (Auto) 1.2, Gibson # (Auto) 0.2, Eos # (Auto) 0.0, Baso # (Auto) 0.0, PT 10.0 L, INR 0.88 L, Sodium 136, Potassium 5.0, Chloride 106, Carbon Dioxide 22, Anion Gap 13.0, BUN 67 H, Creatinine 3.10 H, Estimated Creat Clear 17, Estimated GFR 14 L*, Est GFR ( Amer) 17 L*, Glucose 106 H, Calcium 10.3 H, Iron 61, TIBC 262 L, Iron Saturation 23.36862, Total Bilirubin 0.4, AST 22, ALT 13, Alkaline Phosphatase 57, Total Protein 7.2, Albumin 3.2 L, Globulin 4.0 H, Albumin/Globulin Ratio 0.8 L, HIV 1&2 Antibody Rapid Nonreactive, Blood Type A Negative, Antibody Screen Negative, Crossmatch (AHG) See Detail 02/10/24 20:59: Hgb 6.4 L*, Hct 20.1 L* Orders (Tests/Meds): ED MEDICATIONS Generic Name Dose Route Start Last Admin Trade Name Freq PRN Reason Stop Dose Admin Sodium Chloride 250 mls @ 25 mls/hr 02/10/24 16:30 02/10/24 18:35 Sod Chlor 0.9% 250ml Bag IV 02/11/24 16:29 25 mls/hr .Q10H CECELIA Administration ORDERS Category Date Time Status Red Blood Cells Stat [facility] 02/10/24 16:00 Completed Type and Screen Stat [facility] 02/10/24 16:00 Completed CBC w/Auto Diff [Complete Blood Count Auto Diff] Stat Lab 02/10/24 16:00 Completed CMP [Comprehensive Metabolic Panel] Stat Lab 02/10/24 16:00 Completed HIV (1&2) Antibody Rapid Stat Lab 02/10/24 16:00 Completed Hemoglobin & Hematocrit, Post Timed Lab 02/10/24 20:59 Completed Hep C Ab with Reflex to RNA Stat Lab 02/10/24 16:00 Received INR [Prothrombin Time INR] Stat Lab 02/10/24 16:00 Completed Iron and TIBC Stat Lab 02/10/24 16:00 Completed Medical Decision Narrative: In summary patient is a 84-year-old female who presents to the emergency department for evaluation of abnormal lab results. Patient is hemodynamically stable upon arrival, febrile. Physical exam is remarkable only for dental caries but otherwise is unremarkable and nonfocal including normal breath sounds normal heart sounds normal heart rate looks to be sinus rhythm on the monitor. Differential diagnosis includes iron deficiency anemia versus GI losses versus anemia of chronic disease etc. Initial workup will be conducted with hematologic labs type and screen. Initial interventions were considered however patient currently has no evidence of active bleeding nor any complaints thus interventions deferred for now. Initial workup reviewed by me indeed shows that she has a hemoglobin of 6.1 with a GFR of 14 for creatinine of 3.1 a BUN of 67 total iron of 61 and total iron binding capacity of 262 which is slightly low and an iron saturation of 23% with the remainder of her hematologic labs being nonactionable. It is still not clear where the red blood cell loss is occurring however given her chronic kidney disease low iron stores possible primary contributing factor. She did have stool for occult blood x 3 that were reportedly negative but she may need upper and lower endoscopy to rule out an occult source of blood loss. Given this we will transfuse 1 unit of packed red blood cells and repeated H&H 1 hour after. Upon repeat H&H her hemoglobin only came up to 6.4 and hematocrit of 20.1 given that I had interact discussion with hospital medicine and she will be admitted for further evaluation and care. I was consulted by the LORNA, and we discussed the complexity of the problems being addressed. I approved the treatment and management plan for this patient's care in the Emergency Department, thus performing a substantive portion of the medical decision making. Howard Benson MD Critical Care <RACHEL Bradley - Last Filed: 02/10/24 21:22> Critical Care Time Critical Care Time: No
[2024-02-10 16:14] LABS: Basophils % 0.3 % (0.1-2.0); Eosinophils % 0.9 % (0.1-12.0); Lymphocytes # 1.2 K/mm3 (0.7-4.5); Lymphocytes % 25.6 % (10-50); Mean Corpuscular HGB Conc 30.9 g/dL (31.8-35.4); Mean Platelet Volume 9.2 fl (7.4-10.4); Monocytes # 0.2 K/mm3 (0.1-1.0); Monocytes % 4.9 % (1.7-9.3); Neutrophils # 3.2 K/mm3 (1.8-7.8); Neutrophils % 68.4 % (37.0-80.0); Platelet Count 216 K/mm3 (142-424); Red Blood Count 1.99 M/mm3 (4.20-5.40); Red Cell Distribution Width 17.9 % (11.5-17.5); White Blood Count 4.7 K/mm3 (4.8-10.8)
[2024-02-10 16:15] LABS: Hematocrit 19.9 % (37.0-47.0); Hemoglobin 6.1 g/dL (12.2-16.2)
[2024-02-10 16:38] LABS: Alanine Aminotransferase 13 U/L (12-78); Albumin Level 3.2 g/dl (3.5-5.0); Albumin/Globulin Ratio 0.8 (1.1-1.8); Alkaline Phosphatase 57 U/L (38-126); Aspartate Amino Transferase 22 U/L (14-36); Bilirubin,Total 0.4 mg/dl (0.2-1.3); Blood Urea Nitrogen 67 mg/dl (7-17); Calcium 10.3 mg/dl (8.4-10.2); Carbon Dioxide 22 mmol/L (22.0-30.0); Chloride 106 mmol/L (98-107); Creatinine Clearance Estimated 17 mL/min (50-200); Estimated Glomerular Filt Rate 14 ml/min (>60); GFR (African American) 17 ML/MIN (>60); Glucose 106 mg/dl (74-100); Sodium 136 mmol/L (136-145); Total Protein,Serum 7.2 g/dl (6.3-8.2)
[2024-02-10 16:49] LABS: Total Iron Binding Capacity 262 ug/dL (265-497)
[2024-02-10 17:18] LABS: Iron 61 ug/dL (37-170)
[2024-02-10 17:20] LABS: INR 0.88 (0.9-1.1)
[2024-02-10 17:52] LABS: HIV (1&2) Antibody Rapid NONREACTIVE (NONREACTIVE)
[2024-02-10] MEDS: 0.9 % SODIUM CHLORIDE 250 ML 25 ML IV ×2 (18:35→23:45)
[2024-02-10 21:18] LABS: Hematocrit 20.1 % (37.0-47.0); Hemoglobin 6.4 g/dL (12.2-16.2)
--- NOTE | 2024-02-10 21:22 | PC.NURSE ---
house notified for admit
--- NOTE | 2024-02-10 21:32 | PC.NURSE ---
Report called to DAYANA Valero
--- NOTE | 2024-02-10 22:39 | PC.NURSE ---
called lab to check on blood, will be ready in about 30 minutes. thigh high SCD's in place. patient was bathed. contacted [facility] to fax over medical records and MAR - awaiting fax to update medications. BA for safety.
--- NOTE | 2024-02-10 23:05 | P.HP_ITS ---
History of Present Illness *Admission Date: 02/11/24 *Reason for visit:: Anemia *History of present illness: Patient is a 84-year-old female with past medical history of diabetes, anemia, mild protein caloric malnutrition, hypertension, GERD, adult failure to thrive. Patient presents to hospital with recurrent anemia. Patient reports previous 3 unit packed RBC blood transfusion 12/2023 during previous hospitalization at this hospital. Denies coffee-ground emesis, hematemesis, melena, medic easier. States she has never had an EGD or colonoscopy. Also denies chest pain, palpitations, shortness of breath, weak, fevers, abdominal pain. States the [facility] here. States that she visited a neurologist in [place] today but does not know why. Denies seeing storeperson as outpatient. Patient hemoglobin in emergency room 6.1, and only improved to 6.4 after 1 unit packed RBCs. [facility] Disclaimer: The information contained in this section may have been updated after the patient was seen, as this information can be updated by other users. Medical History (Updated 02/11/24 @ 01:54 by Vega Higgins MD) Thyroid cyst CULLEN (acute kidney injury) Generalized weakness Effusion, right shoulder Knee pain Hyperlipidemia Diabetes mellitus Dental decay Hypertension GERD without esophagitis Concussion Contusion of scalp Forehead laceration Nose fracture Acute UTI Contusion of nose, initial encounter Elevated troponin Uremia Social History (Updated 02/10/24 @ 22:07 by Anjum Patel RN) Smoking Status: Never smoker alcohol intake: never current occupational status: retired Travel in the last 8 weeks: None housing: house marital status: single current occupational exposures/hazards: No caffeine: Yes Review of Systems Review of Systems Review of systems:: pertinent systems reviewed and negative unless documented below Meds Home Medications and Allergies Home Medications ?Medication ?Instructions ?Recorded ?Confirmed ?Type aspirin 81 mg tablet,delayed 81 mg PO DAILY 06/22/19 01/07/24 History release pantoprazole 40 mg tablet,delayed 40 mg PO BID 7 days #14 tabs 12/27/23 01/07/24 Rx release acetaminophen 500 mg tablet 1,000 mg (2 x 500 mg) PO BID #120 01/05/24 01/07/24 Rx tabs amlodipine 5 mg tablet 5 mg PO DAILY #90 tabs 08/20/24 08/22/24 Rx benazepril 10 mg tablet 10 mg PO DAILY #90 tabs 01/05/24 01/07/24 Rx insulin aspar prot-insulin aspart 10 unit SQ QAM 01/05/24 01/07/24 History 100 unit/mL (70-30) subcutaneous pen (Novolog Mix 70-30FlexPen U-100) pravastatin 20 mg tablet 20 mg PO DAILY #90 tabs 01/05/24 01/07/24 Rx saxagliptin 2.5 mg tablet 2.5 mg PO DAILY #90 tabs 01/26/24 Rx New Prescriptions to Start Prescriptions: Allergies Allergy/AdvReac Type Severity Reaction Status Date / Time No Known Allergies Allergy Verified 01/07/24 15:02 Exam Data for Last 24 hours Vital signs and Labs for Last 24 Hours: Temp Pulse Resp BP Pulse Ox O2 Del Method 99.0 F 97 H 16 136/67 96 Room Air 02/11/24 00:05 02/11/24 00:05 02/11/24 00:05 02/11/24 00:05 02/11/24 00:05 02/10/24 22:04 Laboratory Results - last 24 hr 02/10/24 16:00: WBC 4.7 L, RBC 1.99 L*, Hgb 6.1 L*, Hct 19.9 L*, MCV 100.0 H, MCH 31.0, MCHC 30.9 L, RDW 17.9 H, Plt Count 216, MPV 9.2, Neut % (Auto) 68.4, Lymph % (Auto) 25.6, Davidson % (Auto) 4.9, Eos % (Auto) 0.9, Baso % (Auto) 0.3, Neut # (Auto) 3.2, Lymph # (Auto) 1.2, Davidson # (Auto) 0.2, Eos # (Auto) 0.0, Baso # (Auto) 0.0, PT 10.0 L, INR 0.88 L, Sodium 136, Potassium 5.0, Chloride 106, Carbon Dioxide 22, Anion Gap 13.0, BUN 67 H, Creatinine 3.10 H, Estimated Creat Clear 17, Estimated GFR 14 L*, Est GFR ( Amer) 17 L*, Glucose 106 H, Calcium 10.3 H, Iron 61, TIBC 262 L, Iron Saturation 23.69817, Total Bilirubin 0.4, AST 22, ALT 13, Alkaline Phosphatase 57, Total Protein 7.2, Albumin 3.2 L, Globulin 4.0 H, Albumin/Globulin Ratio 0.8 L, HIV 1&2 Antibody Rapid Nonreactive, Blood Type A Negative, Antibody Screen Negative, Crossmatch (AHG) See Detail 02/10/24 20:59: Hgb 6.4 L*, Hct 20.1 L* I & O for Last 24 hours: Intake & Output 02/08/24 02/09/24 02/10/24 02/11/24 23:59 23:59 23:59 23:59 Intake Total 277 / 277 Balance 277 / 277 Weight 35.38 kg *Routine HEENT Exam Head: Present normocephalic Eye: Present EOMI and normal accommodation ENT: Present mucous membranes moist *Routine Neck Exam Neck: Present supple and full ROM *Routine Respiratory Exam Respiratory: Present CTA bilaterally and normal respiratory effort *Routine Cardiovascular Exam Cardiovascular: Present RRR, Normal S1 and Normal S2 *Routine Abdominal Exam Abdominal: Present soft and normoactive bowel sounds *Routine Rectal Exam Rectal:: deferred *Routine Genitalia Exam Genitalia:: deferred *Routine Extremities Exam Extremities: Present full ROM and normal capillary refill *Routine Skin Exam Skin: Present intact *Routine Neurological Exam Neurological: Present alert and oriented X3 Assessment and Plan *Assessment and plan (1) Anemia: Status: Acute Qualifiers: Anemia type: unspecified type Qualified Code(s): D64.9 - Anemia, unspecified Category: Medical Code(s): D64.9 - Anemia, unspecified (2) Vaginal discharge: Status: Acute Category: Medical Code(s): N89.8 - Other specified noninflammatory disorders of vagina (3) Diabetes mellitus: Status: Acute Qualifiers: Diabetes mellitus type: type 2 Diabetes mellitus group home insulin use: with group home use Diabetes mellitus complication status: with hyperglycemia Qualified Code(s): E11.65 - Type 2 diabetes mellitus with hyperglycemia; Z79.4 - manager intermediate (current) use of insulin Category: Medical Code(s): E11.9 - Type 2 diabetes mellitus without complications (4) CKD (chronic kidney disease): Status: Acute Category: Medical Code(s): N18.9 - Chronic kidney disease, unspecified (5) Hyperlipidemia: Status: Acute Category: Medical Code(s): E78.5 - Hyperlipidemia, unspecified (6) GERD without esophagitis: Status: Acute Category: Medical Code(s): K21.9 - Gastro-esophageal reflux disease without esophagitis (7) Hypertension: Status: Acute Category: Medical Code(s): I10 - Essential (primary) hypertension (8) Adult failure to thrive: Status: Acute Category: Medical Code(s): R62.7 - Adult failure to thrive Plan Anemia unknown etiology: ?Patient status post admission to this institution for anemia 12/22 to 12/26. Hemoglobin 12/27/2023 equal 8.0. Patient received 3 units packed RBCs during previous admission 12/2023, was Hemoccult negative x 2, with normal iron studies during previous admission. Presents today with hemoglobin 6.1 prior to blood transfusion given in emergency room. Hemoglobin today 6.4 after blood transfusion. I ordered 1 unit packed RBCs during admission of patient. I ordered serial repeat hemoglobins for 5 AM and 11 AM 01/22/2024. Patient already received 1unit pRBCs in emergency room, and iron studies were reviewed by me done in emergency room prior to transfusion iron 61, TIBC 262, iron saturation 23.28. These iron studies do not necessarily represent iron deficiency anemia, and appear more indicative of anemia of chronic disease. However, given recurrent anemia I ordered Gastroccult at time of admission. I also ordered gastroenterology consultation in a.m. for possible EGD. Will make patient n.p.o. after midnight for possible EGD. Patient denies history of EGD/colonoscopy. I also started ferrous sulfate 325 p.o. twice daily for patient at time of hospital admission. -I reviewed patient's echocardiogram 12/23/2023 showing normal ejection fraction, mild RV/RA dilatation. Vaginal discharge: ? Noted by nursing during floor assessment. Drainage described as foul- smelling. I ordered wet prep. I also ordered gonorrhea/chlamydia of vaginal discharge and urine culture. I ordered procalcitonin and lactic acid to evaluate patient for infection. Will administer 1 dose fluconazole 150 mg p.o. x 1. diabetes ?Patient's POC blood sugar 12/27/2023 154. Patient's blood sugar on BMP in emergency room today on a.m. 106 mg/dl. Ordered sliding scale insulin, every 6 hours Accu-Cheks. CKD -Patient's 01/07/2024 BUN/creatinine 63/3.2. Patient's BUN/creatinine 02/11/2024 equal 67/3.1. This implies patient suffering from CKD rather than CULLEN. Will cautiously place patient on maintenance IV fluids while n.p.o. during hospitalization 100 cc/h normal saline x 24 hours mild protein caloric malnutrition -Ordered nutrition consult for a.m. Patient n.p.o. after midnight for possible EGD. hypertension: Patient's blood pressure 120/54 during my evaluation in emergency room. Will place patient on as needed IV hydralazine 10 mg every 6 hours SBP greater than 170, Will continue home Norvasc 5 mg p.o. daily, benazepril 10 mg p.o. daily. GERD: Pantoprazole 40 mg p.o. daily continued by myself at time of admission Hyperlipidemia: Pravastatin 20 mg p.o. daily continue Omnicef at time of admission adult failure to thrive ?I reviewed patient's previous [facility] hospitalization records 12/22 to 12/26 noting that patient was treated for CULLEN, and anemia receiving 3 units packed RBCs. I also noted the patient discharged to [facility] 12/27/2023. [facility] after this current hospitalization. I ordered PT/OT at time of admission. PPX: SCD given current anemia CODE STATUS: DNR/DNI per patient at time of admission by Dr. Higgins. [facility] paperwork states that patient is full code. Patient has capacity when I evaluated patient in emergency room. Will therefore respect patient's wishes and make patient DNR/DNI. MDM [place]opa: High risk given patient's hemoglobin 6.1 today poses a threat to life and bodily function. Data: High, see plan section above. I also called and spoke with patient's nurse at [facility] while admitting patient to the hospital who agreed with patient being admitted to hospital, and confirmed that [facility] called EMS to transport patient to hospital. I discussed the management of this patient with Dr. Benson, emergency room physician. I also discussed this case with the emergency room provider Garcia Chavez while I was in emergency room admitting this patient. Both emergency room providers and I discussed that given patient's hemoglobin level less than 7, and recurrent anemia that patient required immediate hospitalization for further blood transfusions and possible EGD in AM. Risk: High, I decided to admit this patient given life-threatening anemia of unknown etiology which required immediate hospitalization for stabilization. I also ordered serial H&H's to monitor patient's hemoglobin and determine amount of blood transfusions needed during his hospitalization. 65 minutes of total care time spent on this patient by Dr. Higgins 02/11/2024
[2024-02-11] VITALS (23 sets, daily range): BP systolic 109–172; BP diastolic 48–84; PULSE 86–108; RESP 14–18; TEMP 36.4–37.2; O2SAT 93–99; BMI 30.8
--- NOTE | 2024-02-11 00:39 | PC.NURSE ---
large amount of thick, yellow, foul-smelling vaginal discharge pooled between patients legs. Contacted Hospitalist, sample sent to lab. Patient is unable to voice whether this has been an ongoing issue or not. She is incontinent, regularly.
[2024-02-11] MEDS: FLUCONAZOLE 100MG TABLET 150 MG PO (01:15)
[2024-02-11] MEDS: 0.9 % SODIUM CHLORIDE 1000ML 1,000 ML 100 ML IV ×2 (01:58→21:12)
[2024-02-11 02:36] LABS: POC Glucose,Bedside 123 (70-110)
[2024-02-11 02:53] LABS: C-Reactive Protein 48.3 mg/L (0-4)
[2024-02-11 03:05] LABS: Procalcitonin 0.197 ng/mL (0.0-2.0)
[2024-02-11 03:42] LABS: Hematocrit 24.5 % (37.0-47.0)
[2024-02-11 03:46] LABS: Hemoglobin 8.1 g/dL (12.2-16.2)
[2024-02-11 03:51] LABS: Occult Blood,Stool Negative (Negative)
[2024-02-11 03:55] LABS: Bilirubin,Urine Negative (Negative); Blood, Urine TRACE-I (Negative); Color,Urine YELLOW (Yellow); Glucose,Urine (UA) Negative (Negative); Ketones,Urine Negative (Negative); Leukocyte Esterase,Urine 3+ (Negative); Microscopic, Urine URINE MICROSCOPIC (MICROSCOPIC); Nitrate,Urine Negative (Negative); Protein,Urine TRACE (Negative); Specific Gravity, Urine 1.015 (1.005-1.030); Urobilinogen,Urine 0.2 EU/dl (0.2)
[2024-02-11 04:00] LABS: Hemoglobin A1C 5.1 % (4.0-6.0)
[2024-02-11 04:09] LABS: Appearance,Urine Slightly Cloudy (Clear)
[2024-02-11 05:06] LABS: Bacteria,Urine 2+ /lpf; WBC,Urine 50-100 #/hpf (0-3)
[2024-02-11] MEDS: CEFTRIAXONE SODIUM 1 GM in 0.9 % SODIUM CHLORIDE 50 ML IV (06:36)
[2024-02-11 06:54] LABS: POC Glucose,Bedside 113 (70-110)
[2024-02-11 07:18] LABS: Basophils % 0.5 % (0.1-2.0); Eosinophils % 0.8 % (0.1-12.0); Lymphocytes % 19.5 % (10-50); Mean Corpuscular HGB Conc 31.9 g/dL (31.8-35.4); Mean Corpuscular Hemoglobin 31.9 pg (27.0-31.2); Mean Corpuscular Volume 99.9 fl (81-99); Mean Platelet Volume 8.5 fl (7.4-10.4); Monocytes # 0.3 K/mm3 (0.1-1.0); Monocytes % 6.5 % (1.7-9.3); Neutrophils # 3.6 K/mm3 (1.8-7.8); Neutrophils % 72.8 % (37.0-80.0); Platelet Count 188 K/mm3 (142-424); Red Cell Distribution Width 16.8 % (11.5-17.5); White Blood Count 4.9 K/mm3 (4.8-10.8)
[2024-02-11 07:23] LABS: Anion Gap 10.8 mEq/L (5-15); Blood Urea Nitrogen 68 mg/dl (7-17); Calcium 9.8 mg/dl (8.4-10.2); Carbon Dioxide 20 mmol/L (22.0-30.0); Chloride 112 mmol/L (98-107); Creatinine Clearance Estimated 19 mL/min (50-200); Estimated Glomerular Filt Rate 15 ml/min (>60); GFR (African American) 19 ML/MIN (>60); Glucose 106 mg/dl (74-100); Magnesium 1.9 mg/dl (1.6-2.3); Potassium 4.8 mmoL/L (3.5-5.1); Sodium 138 mmol/L (136-145)
--- NOTE | 2024-02-11 07:31 | HMH.PTEV ---
Physical Therapy Evaluation Rehab PT IP Evaluation Start: 02/11/24 05:38 Freq: ONCE Status: Active Protocol: Document 02/11/24 07:27 RACH (Rec: 02/11/24 07:31 RACH [id number]) Subjective/History History History Per H&P: Patient is a 84-year -old female with past medical history of diabetes, anemia, mild protein caloric malnutrition, hypertension, GERD, adult failure to thrive. Patient presents to hospital with recurrent anemia. Patient reports previous 3 unit packed RBC blood transfusion 12/2023 during previous hospitalization at this hospital. Denies coffee- ground emesis, hematemesis, melena, medic easier. States she has never had an EGD or colonoscopy. Also denies chest pain, palpitations, shortness of breath, weak, fevers, abdominal pain. [facility]. States that she visited a neurologist in [place] today but does not know why. Denies seeing honey liquefier as outpatient. Patient hemoglobin in emergency room 6.1, and only improved to 6.4 after 1 unit packed RBCs. Subjective Subjective Pt reports she has been living at [facility] and was receiving PT prior to admission. Pt denies use of RW or cane but rather used a w/c for primary mobility. Pt required the staffs help for transfers, bed mobility, showering and dressing. New diagnosis of cancer in past 12 No months? Rehab PT IP Eval Objective Appearance Patient Behavior Appropriate,Cooperative Patient Orientation Place,Situation Difficulty following instructions none Speech Pattern Clear Ambulation Patient Able to Ambulate No Balance Ability to Arise Unable Sitting Balance Steady, safe Transfers Bed Transfer Ability Maximum x 1 (75% assist) Rehab PT IP prob,goals,plan Problems Date of Evaluation: 02/11/24 PT IP Problems Bed Mobility,Transfers,Gait, Balance,Self care,Safety Rehab Potential Rehab Potential Good Equipment Needs Assistive Devices Rolling / Wheeled Walker Plan PT Intervention Plan Bed Mobility,Transfers,Gait, Balance,Self care,Safety, Therapeutic Exercise Other Intervention Plan 1-2 times PT Plan Frequency Daily Duration LOS Discharge Goals Bed Transfer Ability Moderate x 1 (50% assist) Discharge Plan PT Discharge Plan Initial physical therapy evaluation performed. Patient presents below baseline at this time in functional mobility, transfers, and strength. Pt denied trialing stand but reports she usually does have help. Pt required Max A for bed mobility this date. PT recommending pt return to short-term rehabilitation stay upon d/c from [facility]. Pt would benefit from skilled PT while at [facility] to prevent further functional decline and maximize safety with mobility. Eval Complexity Eval Charge Codes 79162 - High Complexity PHYSICIAN CERTIFICATION: I certify the specified therapy services for Diane Lerma are required, authorized, and reviewed every 30 days.
--- NOTE | 2024-02-11 08:26 | HMH.PHAINT1 ---
Pharmacy Intervention Comments: Home medication list verified using MAR from [facility] care [facility].
--- NOTE | 2024-02-11 08:26 | P.CONPHA_ITS ---
Pharmacy Intervention Comments: Home medication list verified using MAR from [facility] care [facility].
[2024-02-11] MEDS: PANTOPRAZOLE 40MG TABLET 40 MG PO ×2 (09:15→21:12)
[2024-02-11] MEDS: LISINOPRIL 10MG TABLET 10 MG PO (09:15)
[2024-02-11] MEDS: AMLODIPINE 5MG TABLET 5 MG PO (09:15)
[2024-02-11] MEDS: ASPIRIN EC 81MG TABLET 81 MG PO (09:15)
[2024-02-11 09:30] LABS: POC Glucose,Bedside 113 (70-110)
--- NOTE | 2024-02-11 09:57 | HMH.OTEV ---
OT Inpatient Evaluation Rehab OT IP Evaluation Start: 02/11/24 05:38 Freq: ONCE Status: Active Protocol: Document 02/11/24 09:52 YULIAALCON (Rec: 02/11/24 09:57 CLEVE [id number]) Rehab OT IP Assessment Subjective History Patient is a 84-year-old female with past medical history of diabetes, anemia, mild protein caloric malnutrition, hypertension, GERD, adult failure to thrive. Patient presents to hospital with recurrent anemia. Patient reports previous 3 unit packed RBC blood transfusion 12/2023 during previous hospitalization at this hospital. Denies coffee- ground emesis, hematemesis, melena, medic easier. States she has never had an EGD or colonoscopy. Also denies chest pain, palpitations, shortness of breath, weak, fevers, abdominal pain. States the correction sent me here. States that she visited a neurologist in [place] today but does not know why. Denies seeing rags laborer as outpatient. Patient hemoglobin in emergency room 6.1, and only improved to 6.4 after 1 unit packed RBCs. Resident of residential correction of [place]. Required assistance of 1 or 2 with ADLS and transfers. w/c for mobility. Subjective I can try to sit up. Instructed Patient on proper hand and foot placement to complete bed mobility from supine->sit @ EOB requiring Mod A x2. Patient sat up @ EOB ~5 mins with SBA. Instructed Patient on scooting to HOB with needing Max A. Left Patient sitting upright in bed with needs met at en of session. Will attempt to stand later today. Objective Patient Orientation Person,Name,Age,Birthday,Year Right Upper Extremity Gross ROM WFL Left Upper Extremity Gross ROM WFL Bed Mobility bed mobility - supine/sit Assist Level Maximum x 2 (75% assist) Rehab OT IP prob,goals,plan Problems Date of Evaluation: 02/11/24 OT IP Problems Bed Mobility,Transfers,Balance ,Self care,Safety Rehab Potential Rehab Potential Good Equipment Needs Assistive Devices Wheelchair Plan OT intervention Plan Bed Mobility,Transfers,Balance ,Self care,Safety,Therapeutic Exercise OT Plan Frequency Daily Duration LOS Discharge Goals Bed Mobility Ability Assistance x1 Discharge Plan OT Discharge Plan Patient to return back to [facility] for rehab and shelter care . Patient to continue skilled OT IP services while here at [facility]. Eval Complexity Eval Charge Codes 54003 - Low Complexity PHYSICIAN CERTIFICATION: I certify the specified therapy services for Diane Lerma are required, authorized, and reviewed every 30 days.
[2024-02-11] MEDS: SODIUM PHOS/BIPHOSPHATE FLEET 133ML ENEMA 133 ML RC (11:03)
[2024-02-11 11:04] LABS: Hematocrit 24.8 % (37.0-47.0); Hemoglobin 7.9 g/dL (12.2-16.2)
[2024-02-11] MEDS: PEG-ELECTROLYTE SOLN 4000ML BOTTLE 4000 ML PO (11:12)
--- NOTE | 2024-02-11 12:28 | P.CONS_ITS ---
History of Present Illness *Admission Date: 02/11/24 *History of present illness: Patient is a 84-year-old female with past medical history of diabetes, anemia, mild protein caloric malnutrition, hypertension, GERD, adult failure to thrive. Patient presents to hospital with recurrent anemia. Patient reports previous 3 unit packed RBC blood transfusion 12/2023 during previous hospitalization at this hospital. Denies coffee-ground emesis, hematemesis, melena, medic easier. States she has never had an EGD or colonoscopy. Also denies chest pain, palpitations, shortness of breath, weak, fevers, abdominal pain. States the retirement sent me here. States that she visited a neurologist in [place] today but does not know why. Denies seeing v belt builder as outpatient. Patient hemoglobin in emergency room 6.1, and only improved to 6.4 after 1 unit packed RBCs. 84-year-old female retirement patient admitted through the ER with acute on chronic anemia. Sent to the ER yesterday with hemoglobin of 6.1. She does have some chronic kidney disease but after previous hospitalization and packed red cells, patient has dropped her hemoglobin from 8.4 to 6.1 in 1 month. Platelets normal at 216, iron levels low normal with a iron of 61 and iron sat of 23. Patient does not remember when her last colonoscopy was and she denies ever having an EGD. No anticoagulation or antiplatelets but for aspirin daily. She is on pantoprazole. She does have a history of GERD. She denies any melena or hematochezia. Nursing has not seen melena or hematochezia the stool last night and a smear this morning. CT in December was relatively unremarkable. She is A&O x 3 and is agreeable to panendoscopy for recurrent anemia. [facility] Disclaimer: The information contained in this section may have been updated after the patient was seen, as this information can be updated by other users. Medical History (Updated 02/11/24 @ 01:54 by Vega Higgins MD) Thyroid cyst CULLEN (acute kidney injury) Generalized weakness Effusion, right shoulder Knee pain Hyperlipidemia Diabetes mellitus Dental decay Hypertension GERD without esophagitis Concussion Contusion of scalp Forehead laceration Nose fracture Acute UTI Contusion of nose, initial encounter Elevated troponin Uremia Social History (Updated 02/10/24 @ 22:07 by Anjum Patel RN) Smoking Status: Never smoker alcohol intake: never current occupational status: retired Travel in the last 8 weeks: None housing: house marital status: single current occupational exposures/hazards: No caffeine: Yes Review of Systems Review of Systems Review of systems:: pertinent systems reviewed and negative unless documented below Constitutional Constitutional: Reports system reviewed and no additional complaints, except as documented Eyes Eyes: Reports system reviewed and no additional complaints, except as documented ENT Ears, Nose, Mouth, and Throat: Reports system reviewed and no additional complaints, except as documented *Cardiovascular Cardiovascular: Reports system reviewed and no additional complaints, except as documented *Respiratory Respiratory: Reports system reviewed and no additional complaints, except as documented *Gastrointestinal Gastrointestinal: Reports system reviewed and no additional complaints, except as documented, Denies abdominal pain, Denies bloating, Denies change in bowel habits, Denies coffee ground emesis, Denies hematochezia, Denies melena, Denies nausea and Denies vomiting *Genitourinary Genitourinary: Reports system reviewed and no additional complaints, except as documented *Musculoskeletal Musculoskeletal: Reports system reviewed and no additional complaints, except as documented Integumentary/Breasts Skin/Breast: Reports system reviewed and no additional complaints, except as documented *Neurologic Neurologic: Reports system reviewed and no additional complaints, except as documented Psychiatric Psychiatric: Reports system reviewed and no additional complaints, except as documented Hematologic/Lymphatic Hematologic/Lymphatic: Reports system reviewed and no additional complaints, except as documented Meds Home Medications and Allergies Home Medications ?Medication ?Instructions ?Recorded ?Confirmed ?Type aspirin 81 mg tablet,delayed 81 mg PO DAILY 06/22/19 02/11/24 History release acetaminophen 500 mg tablet 1,000 mg (2 x 500 mg) PO BID #120 01/05/24 02/11/24 Rx tabs amlodipine 5 mg tablet 5 mg PO DAILY #90 tabs 01/05/24 02/11/24 Rx benazepril 10 mg tablet 10 mg PO DAILY #90 tabs 01/05/24 02/11/24 Rx insulin aspar prot-insulin aspart 10 unit SQ QAM 01/05/24 02/11/24 History 100 unit/mL (70-30) subcutaneous pen (Novolog Mix 70-30FlexPen U-100) pravastatin 20 mg tablet 20 mg PO DAILY #90 tabs 01/05/24 02/11/24 Rx saxagliptin 2.5 mg tablet 2.5 mg PO DAILY #90 tabs 01/26/24 02/11/24 Rx amino acids-protein hydrolysate 15 1 ea PO DAILY 02/11/24 02/11/24 History gram-101 kcal/30 mL oral liquid multivitamin,ci-jqoq-Rg-FA-min 1 tab PO DAILY 02/11/24 02/11/24 History New Prescriptions to Start Prescriptions: Allergies Allergy/AdvReac Type Severity Reaction Status Date / Time No Known Allergies Allergy Verified 01/07/24 15:02 Exam (Inpt) Vital signs and Labs for Last 24 Hours: Temp Pulse Resp BP Pulse Ox O2 Del Method 98.1 F 103 H 18 149/74 H 97 Room Air 02/11/24 11:55 02/11/24 11:55 02/11/24 11:55 02/11/24 11:55 02/11/24 11:55 02/11/24 11:55 Laboratory Results - last 24 hr 02/10/24 16:00: WBC 4.7 L, RBC 1.99 L*, Hgb 6.1 L*, Hct 19.9 L*, MCV 100.0 H, MCH 31.0, MCHC 30.9 L, RDW 17.9 H, Plt Count 216, MPV 9.2, Neut % (Auto) 68.4, Lymph % (Auto) 25.6, [place] % (Auto) 4.9, Eos % (Auto) 0.9, Baso % (Auto) 0.3, Neut # (Auto) 3.2, Lymph # (Auto) 1.2, [place] # (Auto) 0.2, Eos # (Auto) 0.0, Baso # (Auto) 0.0, PT 10.0 L, INR 0.88 L, Sodium 136, Potassium 5.0, Chloride 106, Carbon Dioxide 22, Anion Gap 13.0, BUN 67 H, Creatinine 3.10 H, Estimated Creat Clear 17, Estimated GFR 14 L*, Est GFR ( Amer) 17 L*, Glucose 106 H, C alcium 10.3 H, Iron 61, TIBC 262 L, Iron Saturation 23.24416, Total Bilirubin 0.4, AST 22, ALT 13, Alkaline Phosphatase 57, C-Reactive Protein 48.3 H, Total Protein 7.2, Albumin 3.2 L, Globulin 4.0 H, Albumin/Globulin Ratio 0.8 L, Procalcitonin 0.197, HIV 1&2 Antibody Rapid Nonreactive, Blood Type A Negative, Antibody Screen Negative, Crossmatch (AHG) See Detail 02/10/24 20:59: Hgb 6.4 L*, Hct 20.1 L*, Hemoglobin A1c 5.1 02/11/24 01:17: POC Glucose 123 H 02/11/24 03:15: Urine Color Yellow, Urine Appearance Slightly cloudy, Urine pH 8.0, Ur Specific [place] 1.015, Urine Protein Trace, Urine Glucose (UA) Negative, Urine Ketones Negative, Urine Blood Trace-i, Urine Nitrate Negative, Urine Bilirubin Negative, Urine Urobilinogen 0.2, Ur Leukocyte Esterase 3+ A, Urine RBC 5-10, Urine WBC 50-100, Ur Squamous Epith Cells 3-5, Urine Bacteria 2+ 02/11/24 03:25: Stool Occult Blood Negative 02/11/24 03:30: Hgb 8.1 L D, Hct 24.5 L 02/11/24 06:15: WBC 4.9, RBC 2.50 L D, Hgb 8.0 L, Hct 25.0 L, MCV 99.9 H, MCH 31.9 H, MCHC 31.9, RDW 16.8, Plt Count 188, MPV 8.5, Neut % (Auto) 72.8, Lymph % (Auto) 19.5, [place] % (Auto) 6.5, Eos % (Auto) 0.8, Baso % (Auto) 0.5, Neut # (Auto) 3.6, Lymph # (Auto) 1.0, [place] # (Auto) 0.3, Eos # (Auto) 0.0, Baso # (Auto) 0.0, Sodium 138, Potassium 4.8, Chloride 112 H, Carbon Dioxide 20 L, Anion Gap 10.8, BUN 68 H, Creatinine 2.90 H, Estimated Creat Clear 19, Estimated GFR 15 L*, Est GFR ( Amer) 19 L*, Glucose 106 H, Calcium 9.8, Magnesium 1.9 02/11/24 06:37: POC Glucose 113 H 02/11/24 09:13: POC Glucose 113 H 02/11/24 10:54: Hgb 7.9 L, Hct 24.8 L I & O for Labs for Last 24 Hours: Intake & Output 02/09/24 02/10/24 02/11/24 02/12/24 11:59 11:59 11:59 11:59 Intake Total 1043 Output Total 40 Balance 1003 Weight 81.828 kg Microbiology Reports for the Last 24 Hours: Microbiology 02/11/24 00:30 Vaginal Wet Prep - Final Constitutional: no acute distress and cooperative Head: Present normocephalic Neck: Present normal inspection Respiratory: Present CTA bilaterally; Absent respiratory distress, rhonchi or wheezes Cardiac: Present Reg Rate and Rhythm and Audible Murmur (1+) GI: Present soft and normal bowel sounds; Absent tenderness or ascites Skin: Present intact Neuro: Present alert, awake and oriented x 3 Comment:: Ask and answers appropriate questions recent and remote memory grossly intact Results Labs 02/11/24 10:54 02/11/24 06:15 Labs: Laboratory Results - last 24 hr 02/10/24 16:00: WBC 4.7 L, RBC 1.99 L*, Hgb 6.1 L*, Hct 19.9 L*, MCV 100.0 H, MCH 31.0, MCHC 30.9 L, RDW 17.9 H, Plt Count 216, MPV 9.2, Neut % (Auto) 68.4, Lymph % (Auto) 25.6, [place] % (Auto) 4.9, Eos % (Auto) 0.9, Baso % (Auto) 0.3, Neut # (Auto) 3.2, Lymph # (Auto) 1.2, [place] # (Auto) 0.2, Eos # (Auto) 0.0, Baso # (Auto) 0.0, PT 10.0 L, INR 0.88 L, Sodium 136, Potassium 5.0, Chloride 106, Carbon Dioxide 22, Anion Gap 13.0, BUN 67 H, Creatinine 3.10 H, Estimated Creat Clear 17, Estimated GFR 14 L*, Est GFR ( Amer) 17 L*, Glucose 106 H, C alcium 10.3 H, Iron 61, TIBC 262 L, Iron Saturation 23.13265, Total Bilirubin 0.4, AST 22, ALT 13, Alkaline Phosphatase 57, C-Reactive Protein 48.3 H, Total Protein 7.2, Albumin 3.2 L, Globulin 4.0 H, Albumin/Globulin Ratio 0.8 L, Procalcitonin 0.197, HIV 1&2 Antibody Rapid Nonreactive, Blood Type A Negative, Antibody Screen Negative, Crossmatch (AHG) See Detail 02/10/24 20:59: Hgb 6.4 L*, Hct 20.1 L*, Hemoglobin A1c 5.1 02/11/24 01:17: POC Glucose 123 H 02/11/24 03:15: Urine Color Yellow, Urine Appearance Slightly cloudy, Urine pH 8.0, Ur Specific [place] 1.015, Urine Protein Trace, Urine Glucose (UA) Negative, Urine Ketones Negative, Urine Blood Trace-i, Urine Nitrate Negative, Urine Bilirubin Negative, Urine Urobilinogen 0.2, Ur Leukocyte Esterase 3+ A, Urine RBC 5-10, Urine WBC 50-100, Ur Squamous Epith Cells 3-5, Urine Bacteria 2+ 02/11/24 03:25: Stool Occult Blood Negative 02/11/24 03:30: Hgb 8.1 L D, Hct 24.5 L 02/11/24 06:15: WBC 4.9, RBC 2.50 L D, Hgb 8.0 L, Hct 25.0 L, MCV 99.9 H, MCH 31.9 H, MCHC 31.9, RDW 16.8, Plt Count 188, MPV 8.5, Neut % (Auto) 72.8, Lymph % (Auto) 19.5, [place] % (Auto) 6.5, Eos % (Auto) 0.8, Baso % (Auto) 0.5, Neut # (Auto) 3.6, Lymph # (Auto) 1.0, [place] # (Auto) 0.3, Eos # (Auto) 0.0, Baso # (Auto) 0.0, Sodium 138, Potassium 4.8, Chloride 112 H, Carbon Dioxide 20 L, Anion Gap 10.8, BUN 68 H, Creatinine 2.90 H, Estimated Creat Clear 19, Estimated GFR 15 L*, Est GFR ( Amer) 19 L*, Glucose 106 H, Calcium 9.8, Magnesium 1.9 02/11/24 06:37: POC Glucose 113 H 02/11/24 09:13: POC Glucose 113 H 02/11/24 10:54: Hgb 7.9 L, Hct 24.8 L Assessment and Plan *Assessment and plan (1) Anemia: Status: Acute Qualifiers: Anemia type: unspecified type Qualified Code(s): D64.9 - Anemia, unspecified Category: Medical Code(s): D64.9 - Anemia, unspecified (2) CKD (chronic kidney disease): Status: Acute Category: Medical Code(s): N18.9 - Chronic kidney disease, unspecified (3) Generalized weakness: Status: Acute Category: Medical Code(s): R53.1 - Weakness (4) GERD without esophagitis: Status: Acute Category: Medical Code(s): K21.9 - Gastro-esophageal reflux disease without esophagitis Plan 84-year-old retirement patient with acute on chronic anemia, admitted through the ER with a hemoglobin of 6.1. Does have chronic kidney disease and current CULLEN, concerning for some renal dysfunction contributing to chronic anemia, but has dropped her hemoglobin from 8.4 to 6.1 in 1 month. Iron levels appear to be low normal but after a unit of packed red cells in the ER her hemoglobin came up to 6.4. CT was relatively unremarkable. Patient only on aspirin daily. No other antiplatelet or anticoagulant therapy. She denies melena or hematochezia. She does not remember when her last colonoscopy was and denies she has ever had an EGD. She does have a history of GERD. After discussion with Dr. Verdin, will add patient on for panendoscopy today after rapid prep.
--- NOTE | 2024-02-11 13:25 | P.PN_ITS ---
Subjective *Date: 02/11/24 *Time: 17:33 Interval history: Patient resting comfortably on exam this morning. No fever. Denies any chest pain or shortness of breath. N.p.o. awaiting EGD and colonoscopy Medical Exam Vital signs and Labs for Last 24 Hours: Vital Signs Temp Pulse Pulse Resp BP BP Pulse Ox 02/11/24 11:55 98.1 F 103 H 18 149/74 H 97 02/11/24 08:00 02/11/24 08:00 97.9 F 98 H 18 136/74 98 02/11/24 06:40 02/11/24 05:00 02/11/24 03:00 98.1 F 96 H 16 154/78 H 98 02/11/24 03:00 02/11/24 02:00 98.4 F 99 H 16 143/70 H 98 02/11/24 01:50 98.4 F 96 H 16 142/71 H 97 02/11/24 01:00 02/11/24 00:50 98.6 F 97 H 16 134/68 98 02/11/24 00:35 98.7 F 97 H 16 116/82 99 02/11/24 00:20 98.7 F 95 H 16 135/64 96 02/11/24 00:05 99.0 F 97 H 16 136/67 96 02/11/24 00:00 98.3 F 95 H 16 137/66 96 02/10/24 23:55 98.4 F 96 H 16 145/65 H 97 02/10/24 23:50 98.0 F 96 H 16 148/70 H 98 02/10/24 23:35 97.4 F L 93 H 16 142/71 H 95 02/10/24 23:00 02/10/24 22:04 97.8 F 94 H 18 135/49 L 97 02/10/24 21:55 02/10/24 21:24 98.4 F 81 20 120/54 L 02/10/24 21:15 98.3 F 89 20 141/65 H 96 02/10/24 20:15 98.3 F 91 H 17 132/65 98 02/10/24 20:00 93 H 19 132/65 98 02/10/24 19:45 91 H 19 115/59 L 95 02/10/24 19:35 98.4 F 91 H 17 105/48 L 97 02/10/24 19:31 90 24 105/48 L 94 L 02/10/24 19:20 98.4 F 99 H 20 122/54 L 97 02/10/24 19:15 98 H 20 122/54 L 97 02/10/24 19:05 98.4 F 97 H 20 123/60 98 02/10/24 19:00 102 H 38 H 123/60 97 02/10/24 18:50 98.4 F 99 H 26 H 131/61 98 02/10/24 18:45 98.5 F 97 H 22 122/58 L 97 02/10/24 18:40 98.6 F 101 H 20 136/63 99 02/10/24 18:35 98.9 F 99 H 16 128/58 L 101 H 02/10/24 18:30 98.5 F 102 H 16 143/67 H 97 02/10/24 18:30 104 H 143/67 H 98 02/10/24 18:28 101 H 136/67 99 02/10/24 18:01 103 H 110/55 L 100 02/10/24 17:30 94 H 133/59 L 97 02/10/24 17:00 96 H 131/63 97 02/10/24 16:30 91 H 134/63 100 02/10/24 16:00 90 113/55 L 100 02/10/24 15:48 97.6 F 100 H 16 121/62 99 02/10/24 15:46 99 H 121/62 100 O2 Del Method 02/11/24 11:55 Room Air 02/11/24 08:00 Room Air 02/11/24 08:00 Room Air 02/11/24 06:40 Room Air 02/11/24 05:00 Room Air 02/11/24 03:00 02/11/24 03:00 Room Air 02/11/24 02:00 02/11/24 01:50 02/11/24 01:00 Room Air 02/11/24 00:50 02/11/24 00:35 02/11/24 00:20 02/11/24 00:05 02/11/24 00:00 02/10/24 23:55 02/10/24 23:50 02/10/24 23:35 02/10/24 23:00 Room Air 02/10/24 22:04 Room Air 02/10/24 21:55 Room Air 02/10/24 21:24 Room Air 02/10/24 21:15 02/10/24 20:15 02/10/24 20:00 02/10/24 19:45 02/10/24 19:35 02/10/24 19:31 02/10/24 19:20 02/10/24 19:15 02/10/24 19:05 02/10/24 19:00 02/10/24 18:50 02/10/24 18:45 02/10/24 18:40 02/10/24 18:35 02/10/24 18:30 02/10/24 18:30 02/10/24 18:28 02/10/24 18:01 02/10/24 17:30 02/10/24 17:00 Room Air 02/10/24 16:30 Room Air 02/10/24 16:00 02/10/24 15:48 Room Air 02/10/24 15:46 Intake and Output 02/10/24 02/11/24 02/11/24 23:59 07:59 15:59 Intake Total 277 / 287 766 / 766 0 / 766 Output Total 40 / 40 0 / 40 Balance 277 / 287 726 / 726 0 / 726 Intake: Intake, Oral Amount 0 / 0 Intake, Oral Supplement Amount 0 / 0 Intake, Total IV Amount 516 / 516 0.9 % Sodium Chloride 1000ML 1, 456 / 456 000 ml @ 100 mls/hr IV .Q10H CECELIA Rx#:[id number] 0.9 % Sodium Chloride 250 ml @ 10 / 10 25 mls/hr IV .Q10H CECELIA Rx#: [id number] Ceftriaxone Sodium 1 gm In 0.9 50 / 50 % Sodium Chloride 50 ml @ 100 mls/hr IV Q24H CECELIA Rx#:[id number] Intake (Blood Product) Amt 277 / 277 250 / 250 Red Blood Cells Unit 0 / 0 250 / 250 [id number] Red Blood Cells Unit 277 / 277 [id number] Output: Output, Urine Amount 40 / 40 0 / 40 Other: Number of Voids 0 Number of Unmeasured Voids 1 1 1 Number of Bowel Movements 1 1 Weight 35.38 kg 81.828 kg Patient Weight 02/11/24 23:59 Weight 81.828 kg Laboratory Results - last 24 hr 02/10/24 16:00: WBC 4.7 L, RBC 1.99 L*, Hgb 6.1 L*, Hct 19.9 L*, MCV 100.0 H, MCH 31.0, MCHC 30.9 L, RDW 17.9 H, Plt Count 216, MPV 9.2, Neut % (Auto) 68.4, Lymph % (Auto) 25.6, [place] % (Auto) 4.9, Eos % (Auto) 0.9, Baso % (Auto) 0.3, Neut # (Auto) 3.2, Lymph # (Auto) 1.2, [place] # (Auto) 0.2, Eos # (Auto) 0.0, Baso # (Auto) 0.0, PT 10.0 L, INR 0.88 L, Sodium 136, Potassium 5.0, Chloride 106, Carbon Dioxide 22, Anion Gap 13.0, BUN 67 H, Creatinine 3.10 H, Estimated Creat Clear 17, Estimated GFR 14 L*, Est GFR ( Amer) 17 L*, Glucose 106 H, Calcium 10.3 H, Iron 61, TIBC 262 L, Iron Saturation 23.95939, Total Bilirubin 0.4, AST 22, ALT 13, Alkaline Phosphatase 57, C-Reactive Protein 48.3 H, Total Protein 7.2, Albumin 3.2 L, Globulin 4.0 H, Albumin/Globulin Ratio 0.8 L, Procalcitonin 0.197, HIV 1&2 Antibody Rapid Nonreactive, Blood Type A Negative, Antibody Screen Negative, Crossmatch (AHG) See Detail 02/10/24 20:59: Hgb 6.4 L*, Hct 20.1 L*, Hemoglobin A1c 5.1 02/11/24 01:17: POC Glucose 123 H 02/11/24 03:15: Urine Color Yellow, Urine Appearance Slightly cloudy, Urine pH 8.0, Ur Specific [place] 1.015, Urine Protein Trace, Urine Glucose (UA) Negative, Urine Ketones Negative, Urine Blood Trace-i, Urine Nitrate Negative, Urine Bilirubin Negative, Urine Urobilinogen 0.2, Ur Leukocyte Esterase 3+ A, Urine RBC 5-10, Urine WBC 50-100, Ur Squamous Epith Cells 3-5, Urine Bacteria 2+ 02/11/24 03:25: Stool Occult Blood Negative 02/11/24 03:30: Hgb 8.1 L D, Hct 24.5 L 02/11/24 06:15: WBC 4.9, RBC 2.50 L D, Hgb 8.0 L, Hct 25.0 L, MCV 99.9 H, MCH 31.9 H, MCHC 31.9, RDW 16.8, Plt Count 188, MPV 8.5, Neut % (Auto) 72.8, Lymph % (Auto) 19.5, [place] % (Auto) 6.5, Eos % (Auto) 0.8, Baso % (Auto) 0.5, Neut # (Auto) 3.6, Lymph # (Auto) 1.0, [place] # (Auto) 0.3, Eos # (Auto) 0.0, Baso # (Auto) 0.0, Sodium 138, Potassium 4.8, Chloride 112 H, Carbon Dioxide 20 L, Anion Gap 10.8, BUN 68 H, Creatinine 2.90 H, Estimated Creat Clear 19, Estimated GFR 15 L*, Est GFR ( Amer) 19 L*, Glucose 106 H, Calcium 9.8, Magnesium 1.9 02/11/24 06:37: POC Glucose 113 H 02/11/24 09:13: POC Glucose 113 H 02/11/24 10:54: Hgb 7.9 L, Hct 24.8 L I & O for Labs for Last 24 Hours: Intake & Output 02/08/24 02/09/24 02/10/24 02/11/24 23:59 23:59 23:59 23:59 Intake Total 277 / 287 766 / 766 Output Total 40 / 40 Balance 277 / 287 726 / 726 Weight 35.38 kg 81.828 kg Microbiology Reports for the Last 24 Hours: Microbiology 02/11/24 00:30 Vaginal Wet Prep - Final Constitutional: Present no acute distress, obese, chronically ill appearing and cooperative Head: Present atraumatic and normocephalic Comment:: Numerous caries, foul-smelling breath. Neck: Present normal inspection Respiratory: Present normal respiratory effort; Absent rhonchi, wheezes or crackles Cardiac: Present Reg Rate and Rhythm GI: Present soft and normal bowel sounds; Absent distention or tenderness Extremities: Present normal inspection and full ROM Skin: Present intact; Absent erythema Neuro: Present Grossly Intact, alert, awake and moves all extremities Assessment and Plan *Assessment and plan (1) Anemia: Status: Acute Qualifiers: Anemia type: unspecified type Qualified Code(s): D64.9 - Anemia, unspecified Category: Medical Code(s): D64.9 - Anemia, unspecified (2) Vaginal discharge: Status: Acute Category: Medical Code(s): N89.8 - Other specified noninflammatory disorders of vagina (3) Diabetes mellitus: Status: Acute Qualifiers: Diabetes mellitus type: type 2 Diabetes mellitus terminal operator insulin use: with terminal operator use Diabetes mellitus complication status: with hyperglycemia Qualified Code(s): E11.65 - Type 2 diabetes mellitus with hyperglycemia; Z79.4 - FPC (current) use of insulin Category: Medical Code(s): E11.9 - Type 2 diabetes mellitus without complications (4) CKD (chronic kidney disease): Status: Acute Category: Medical Code(s): N18.9 - Chronic kidney disease, unspecified (5) Hyperlipidemia: Status: Acute Category: Medical Code(s): E78.5 - Hyperlipidemia, unspecified (6) GERD without esophagitis: Status: Acute Category: Medical Code(s): K21.9 - Gastro-esophageal reflux disease without esophagitis (7) Hypertension: Status: Acute Category: Medical Code(s): I10 - Essential (primary) hypertension (8) Adult failure to thrive: Status: Acute Category: Medical Code(s): R62.7 - Adult failure to thrive Plan 84-year-old female presents from nursing facility. Found to have anemia of unknown etiology. GI consulted. Planning for EGD and colonoscopy today. Responded well to transfusion. Continues to require inpatient management. Gynecology consulted for vaginal discharge. Problems addressed as follows: Anemia unknown etiology: ?Patient status post admission to this institution for anemia 12/22 to 12/26. Hemoglobin 12/27/2023 equal 8.0. Patient received 3 units packed RBCs during previous admission 12/2023, was Hemoccult negative x 2, with normal iron studies during previous admission. -GI evaluating today. Will take patient for EGD and colonoscopy. - Status post 2 units transfusion, hemoglobin 8.0 this morning. Repeat CBC, CMP, magnesium ordered for the morning. No active bleeding. Occult stool negative -Anemia most consistent with chronic disease given her kidney failure - iron 61, TIBC 262, iron saturation 23.28. Not consistent with iron deficiency. Vaginal discharge: ? Noted by nursing during floor assessment. Drainage described as foul- smelling. -Wet prep obtained, no trichomonas. Procalcitonin unremarkable. Received 1 dose of fluconazole 150 mg p.o. -Gynecology consult placed for formal pelvic exam given nature of discharge. diabetes ? A1c likely inaccurate due to anemia. A1c 5.1. Glucose however remains normal. No indication for insulin or fingersticks. Will discontinue. CKD 4/5 -Patient's 01/07/2024 BUN/creatinine 63/3.2. Patient's BUN/creatinine 02/11/2024 equal 67/3.1. -BUN 68, creatinine 2.9 this morning. Will continue maintenance fluids while NPO. -Electrolytes stable with magnesium 1.9, potassium 4.8. -Bicarb 20. mild protein caloric malnutrition -Nutrition consulted, appreciate their recommendations. Advance to regular diet after EGD/colonoscopy. hypertension: Blood pressure well-controlled, 127/70 this morning. Continue Norvasc 5 mg daily. Holding CATE inhibitor in the setting of severe CKD GERD: Pantoprazole 40 mg p.o. daily continued Hyperlipidemia: Pravastatin 20 mg p.o. daily adult failure to thrive ?I reviewed patient's previous [facility] hospitalization records 12/22 to 12/26 noting that patient was treated for CULLEN, and anemia receiving 3 units packed RBCs. I also noted the patient discharged to [facility] 12/27/2023. Patient likely will return to halfway after this current hospitalization. I ordered PT/OT at time of admission. PPX: SCD given current anemia CODE STATUS: DNR/DNI per patient at time of admission by Dr. Higgins. Further goals of care discussion with family given advanced age, failure to thrive, worsening kidney function, recurrent anemia.
[2024-02-11 14:59] LABS: POC Glucose,Bedside 97 (70-110)
[2024-02-11 16:01] LABS: POC Glucose,Bedside 94 (70-110)
--- NOTE | 2024-02-11 16:04 | HMH.PROCNOTE ---
[facility] Procedure Note Date: 02/11/24 Time: 16:04 Procedure Note:: Upper Endoscopy Procedure Report: Esophagogastroduodenoscopy with cold biopsies Endoscopost: John Verdin II, MD Referring Physician: Jony Sharp MD/Vamshi Espinal MD Date of Procedure: February 11, 2024 Equipment: Olympus GIF 190 standard upper endoscope Sedation: MAC sedation Indications: Mrs. Lerma is an 84-year-old female with failure to thrive and chronic recurrent anemia. She did receive 3 units of PRBCs in December 2023 during her previous hospitalization. She was sent to the ER yesterday with a hemoglobin of 6.1 from her care facility. She does have chronic kidney disease. She does have normal iron levels with iron 61 and iron saturation 23. She does not remember having any prior EGD/colonoscopy. She has not had any melena, hematochezia or bright red blood per rectum per nursing. Procedure: Prior to the procedure, a history and physical exam was performed, and patient's medications and allergies were reviewed. The risks, benefits and alternatives of the sedation and procedure were discussed with the patient. All questions were answered and informed consent was obtained. The patient was brought to the procedure room. Patient identification and proposed procedure were verified by the physician and the nurse. The patient was placed in a left lateral decubitus position and the scope was passed under direct vision. Throughout the procedure, the patient's blood pressure, pulse, and oxygen saturations were monitored continuously. The upper GI endoscopy was accomplished without difficulty. The patient tolerated the procedure well. Findings: The scope was passed directly into the upper esophagus and advanced to the third portion of the duodenum. The post bulbar duodenum and duodenal bulb were normal with normal mucosa and conniventes. Biopsies were obtained from the postbulbar duodenum to rule out celiac disease. The scope was withdrawn through a normal duodenal bulb and pylorus into the stomach. The antrum of the stomach was normal. There was moderate gastric atrophy within the body and fundus of the stomach. There were no ulcerations, erosions or tears. There was a single AVM identified in the fundus. Upon retroflexion there was no hiatal hernia. 2 biopsies were taken in the body/fundus to rule out atrophy/atrophic gastritis or intestinal metaplasia. The scope was then withdrawn into the esophagus. There was no evidence of reflux esophagitis or Delgado's. The remainder of the esophageal mucosa was normal. Impression: 1. Chronic atrophic gastritis Plan: Certainly atrophic gastritis can be a cause of pernicious anemia. I would recommend checking B12 levels and will order. There were no ulcers or evidence of erosive/ulcerative gastritis or duodenal ulcers. I do feel that her anemia is also from her chronic renal failure. I will follow-up the biopsies. I will proceed with colonoscopy.
--- NOTE | 2024-02-11 16:35 | P.PCN_ITS ---
[facility] Procedure Note Date: 02/11/24 Time: 16:35 Procedure Note:: Colonoscopy Procedure Report: Colonoscopy Endoscopist: John Verdin II, MD Referring physician: Jony Sharp MD/Vamshi Espinal MD Date of Procedure: February 11, 2024 Equipment: Olympus 190 variable stiffness pediatric colonoscope Sedation: MAC sedation Indication: Mrs. Lerma is an 84-year-old female with recurrent anemia. This is presumably secondary to renal insufficiency but may be multifactorial. She h as never had a prior EGD/colonoscopy. She reports no bright red rectal bleeding, hematochezia or melena. The patient's iron studies were normal. The patient's hemoglobin and hematocrit today were 7.9 and 24.8. She was transferred from the nursing facility yesterday with a hemoglobin of 6.1. She did receive blood transfusions. Iron studies are ordered. Nurses report no abdominal complaints. The patient's creatinine is 2.90. Procedure: Prior to the procedure, a history and physical exam was performed, and patient's medications and allergies were reviewed. The risks, benefits and alternatives of the sedation and procedure were discussed with the patient. All questions were answered and informed consent was obtained. The patient was brought to the procedure room. Patient identification and proposed procedure were verified by the physician and the nurse. The patient was placed in a left lateral decubitus position and the scope was passed under direct vision. Throughout the pr ocedure, the patient's blood pressure, pulse, and oxygen saturations were monitored continuously. The colonoscopy was accomplished without difficulty. The patient tolerated the procedure well. Findings: On digital rectal examination there was normal rectal tone. There was an external hemorrhoid with some prolapsing internal hemorrhoids.. The colonoscope was introduced through the anal canal to the rectum and advanced to the cecum. The ileocecal valve and appendiceal orifice were identified. The scope was advanced a short distance into the ileum which appeared grossly normal. The scope was then withdrawn into the colon. The cecum, ascending, transverse, descending, sigmoid and rectum were grossly normal. There were no mucosal abnormalities identified. Upon retroflexion within the rectum there were grade 2-3 internal hemorrhoids.The preparation was excellent throughout with Butler Preparation Score of 6-7 out of 9. The cecal time was 12 minutes. Impression: 1. Normal colonoscopy with intubation of the terminal ileum 2. Grade 2-3 internal hemorrhoids Plan: There was clearly no source of chronic gastrointestinal blood loss. I do feel that her anemia is primarily secondary to her chronic renal failure. Anemia is common in people with kidney disease. Healthy kidneys produce a hormone called erythropoietin, or EPO, which stimulates the bone marrow to produce the proper number of red blood cells needed to carry oxygen to vital organs. Diseased kidneys, however, often don't make enough EPO. As a result, the bone marrow makes fewer red blood cells. I would recommend checking B12 and iron levels and hematology evaluation.
--- NOTE | 2024-02-11 18:00 | PC.WOUNDNOTE ---
Photo taken by Jake Ho RN, unable to be loaded at time taken
--- NOTE | 2024-02-11 18:01 | PC.NURSE ---
pt had an EGD and colonoscopy this shift. pt is now resting in bed. vital signs in chart. no c/o pain this shift. diet ordered. tolerating RA. pt had several BM this shift. no further requests at this time.
[2024-02-11 18:23] LABS: Hematocrit 25.6 % (37.0-47.0); Hemoglobin 8.2 g/dL (12.2-16.2); Reticulocyte % (Auto) 1.9 % (0.9-3.2)
[2024-02-11 18:47] LABS: Total Iron Binding Capacity 241 ug/dL (265-497)
[2024-02-11 19:47] LABS: Vitamin B12 354 pg/mL (239-931)
[2024-02-11 19:54] LABS: Folate > 20.00 ng/mL
[2024-02-11 20:20] LABS: Iron 58 ug/dL (37-170)
[2024-02-11 20:56] LABS: Ferritin 232 ng/ml (11.1-264)
[2024-02-11] MEDS: PRAVASTATIN 20MG TAB 20 MG PO (21:12)
[2024-02-12] VITALS: BP 109/58; PULSE 81; RESP 14; TEMP 36.5; O2SAT 97
[2024-02-12 00:55] VITALS: BMI 30.8
[2024-02-12 04:00] VITALS: BP 150/86; PULSE 96; RESP 16; TEMP 36.6; O2SAT 100
[2024-02-12] MEDS: CEFTRIAXONE SODIUM 1 GM in 0.9 % SODIUM CHLORIDE 50 ML IV (05:48)
[2024-02-12 06:16] LABS: Basophils % 0.2 % (0.1-2.0); Eosinophils % 0.7 % (0.1-12.0); Hematocrit 24.6 % (37.0-47.0); Hemoglobin 7.8 g/dL (12.2-16.2); Lymphocytes # 0.9 K/mm3 (0.7-4.5); Lymphocytes % 18.4 % (10-50); Mean Corpuscular HGB Conc 31.9 g/dL (31.8-35.4); Mean Corpuscular Hemoglobin 31.5 pg (27.0-31.2); Mean Corpuscular Volume 98.8 fl (81-99); Mean Platelet Volume 9.2 fl (7.4-10.4); Monocytes # 0.3 K/mm3 (0.1-1.0); Monocytes % 5.4 % (1.7-9.3); Neutrophils # 3.5 K/mm3 (1.8-7.8); Neutrophils % 75.3 % (37.0-80.0); Platelet Count 188 K/mm3 (142-424); Red Blood Count 2.49 M/mm3 (4.20-5.40); White Blood Count 4.6 K/mm3 (4.8-10.8)
[2024-02-12 06:27] LABS: Blood Urea Nitrogen 54 mg/dl (7-17); Calcium 9.4 mg/dl (8.4-10.2); Carbon Dioxide 20 mmol/L (22.0-30.0); Chloride 112 mmol/L (98-107); Creatinine Clearance Estimated 21 mL/min (50-200); Estimated Glomerular Filt Rate 18 ml/min (>60); GFR (African American) 21 ML/MIN (>60); Glucose 88 mg/dl (74-100); Magnesium 1.7 mg/dl (1.6-2.3); Sodium 141 mmol/L (136-145)
[2024-02-12 07:13] LABS: HCV Ab Non Reactive (Non Reactive)
[2024-02-12 08:00] VITALS: BP 154/81; PULSE 100; RESP 16; TEMP 36.9; O2SAT 100
[2024-02-12] MEDS: AMLODIPINE 5MG TABLET 5 MG PO (09:14)
[2024-02-12] MEDS: PANTOPRAZOLE 40MG TABLET 40 MG PO (09:14)
--- NOTE | 2024-02-12 09:38 | P.DS_ITS ---
General Admission date:: 02/10/24 Discharge date: 02/12/24 HPI HPI HPI: Patient is a 84-year-old female with past medical history of diabetes, anemia, mild protein caloric malnutrition, hypertension, GERD, adult failure to thrive. Patient presents to hospital with recurrent anemia. Patient reports previous 3 unit packed RBC blood transfusion 12/2023 during previous hospitalization at this hospital. Denies coffee-ground emesis, hematemesis, melena, medic easier. States she has never had an EGD or colonoscopy. Also denies chest pain, palpitations, shortness of breath, weak, fevers, abdominal pain. States the [facility] sent me here. States that she visited a neurologist in [place] today but does not know why. Denies seeing ocean export agent as outpatient. Patient hemoglobin in emergency room 6.1, and only improved to 6.4 after 1 unit packed RBCs. 84-year-old female [facility] patient admitted through the ER with acute on chronic anemia. Sent to the ER yesterday with hemoglobin of 6.1. She does have some chronic kidney disease but after previous hospitalization and packed red cells, patient has dropped her hemoglobin from 8.4 to 6.1 in 1 month. Platelets normal at 216, iron levels low normal with a iron of 61 and iron sat of 23. Patient does not remember when her last colonoscopy was and she denies ever having an EGD. No anticoagulation or antiplatelets but for aspirin daily. She is on pantoprazole. She does have a history of GERD. She denies any melena or hematochezia. Nursing has not seen melena or hematochezia the stool last night and a smear this morning. CT in December was relatively unremarkable. She is A&O x 3 and is agreeable to panendoscopy for recurrent anemia. Hospital Course Hospital Course Hospital Course: 84-year-old female presents from nursing facility. Found to have anemia of unknown etiology. GI consulted. Planning for EGD and colonoscopy today. Responded well to transfusion. Continues to require inpatient management. Responded well to transfusion. GI consulted for EGD and colonoscopy. Problems addressed as follows: Anemia unknown etiology: ?Patient status post admission to this institution for anemia 12/22 to 12/26. Hemoglobin 12/27/2023 equal 8.0. Patient received 3 units packed RBCs during previous admission 12/2023, was Hemoccult negative x 2, with normal iron studies during previous admission. GI evaluateed, EGD and colonoscopy performed on 02/10. Chronic atrophic gastritis in her stomach and no source of bleeding with her colonoscopy. Found to have grade 2-3 hemorrhoids. Status post 2 units transfusion, hemoglobin remained stable at 7.8. No active signs of bleeding. Occult stool negative. Anemia most consistent with secondary to chronic disease. Iron studies not consistent with iron deficiency. Recommend repeat labs in a week. Vaginal discharge: ? Noted by nursing during floor assessment. Drainage described as foul- smelling. Wet prep was obtained that was fairly unremarkable. Received 1 dose of fluconazole 150 mg. Reevaluation on morning of discharge did not show any vaginal discharge or malodorous findings. Continue to monitor after returning back to nursing facility. Canceled gynecology consult diabetes: A1c likely inaccurate due to anemia. A1c 5.1. Glucose however remains normal. No indication for insulin or fingersticks or insulin. CKD 4/5 -Patient's 01/07/2024 BUN/creatinine 63/3.2. Patient's BUN/creatinine 02/11/2024 equal 67/3.1. BUN 68, creatinine 3.2 on admission. Improved to 54 and 2.6 by morning of discharge. Recommend repeat CBC, CMP in 1 week to monitor kidney function and electrolytes. Mild protein caloric malnutrition: Nutrition consulted, advanced to regular diet after EGD/colonoscopy. Hypertension: Blood pressure well-controlled, 127/70 this morning. Continue Norvasc 5 mg daily. Holding CATE inhibitor in the setting of severe CKD GERD: Pantoprazole 40 mg p.o. daily continued Hyperlipidemia: Pravastatin 20 mg p.o. daily Adult failure to thrive ?I reviewed patient's previous [facility] hospitalization records 12/22 to 12/26 noting that patient was treated for CULLEN, and anemia receiving 3 units packed RBCs. I also noted the patient discharged to [facility] 12/27/2023. Strongly encourage further goals of care discussion with family given advanced age, failure to thrive, worsening kidney function, recurrent anemia. Exam Data for Last 24 hours Vital signs and Labs for Last 24 Hours: Temp Pulse Resp BP Pulse Ox O2 Del Method O2 Flow Rate 98.4 F 100 H 16 154/81 H 100 Room Air 6 02/12/24 08:00 02/12/24 08:00 02/12/24 08:00 02/12/24 08:00 02/12/24 08:00 02/12/24 08:00 02/11/24 15:58 Laboratory Results - last 24 hr 02/10/24 16:00: Hepatitis C Antibody Non reactive, Hep C Ab Comment Comment 02/11/24 10:54: Hgb 7.9 L, Hct 24.8 L 02/11/24 14:49: POC Glucose 97 02/11/24 15:55: POC Glucose 94 02/11/24 17:48: Iron 58, TIBC 241 L, Iron Saturation 24.27319, Ferritin 232, Vitamin B12 354, Folate > 20.00 02/11/24 18:15: Hgb 8.2 L, Hct 25.6 L, Retic Count (auto) 1.9 02/12/24 05:43: WBC 4.6 L, RBC 2.49 L, Hgb 7.8 L, Hct 24.6 L, MCV 98.8, MCH 31.5 H, MCHC 31.9, RDW 17.0, Plt Count 188, MPV 9.2, Neut % (Auto) 75.3, Lymph % (Auto) 18.4, [place] % (Auto) 5.4, Eos % (Auto) 0.7, Baso % (Auto) 0.2, Neut # (Auto) 3.5, Lymph # (Auto) 0.9, [place] # (Auto) 0.3, Eos # (Auto) 0.0, Baso # (Auto) 0.0, Sodium 141, Potassium 4.0, Chloride 112 H, Carbon Dioxide 20 L, Anion Gap 13.0, BUN 54 H, Creatinine 2.60 H, Estimated Creat Clear 21, Estimated GFR 18 L*, Est GFR ( Amer) 21 L, Glucose 88, Calcium 9.4, Magnesium 1.7 D I & O for Last 24 hours: Intake & Output 02/09/24 02/10/24 02/11/24 02/12/24 23:59 23:59 23:59 23:59 Intake Total 277 / 287 766 / 886 460 / 460 Output Total 640 / 640 1000 / 1000 Balance 277 / 287 126 / 246 -540 / -540 Weight 35.38 kg 81.828 kg 81.828 kg Microbiology Reports for the Last 24 Hours: Microbiology 02/11/24 00:34 Urine,Clean Catch Urine Culture - Final Constitutional Constitutional: no acute distress, obese, chronically ill appearing and cooperative *Routine HEENT Exam Head: Present normocephalic Eye: Present EOMI and PERRL ENT: Present mucous membranes moist Comments: Numerous caries, gingival hyperplasia. *Routine Neck Exam Neck: Present supple; Absent lymphadenopathy *Routine Respiratory Exam Respiratory: Present CTA bilaterally; Absent respiratory distress, rhonchi, wheezes or crackles *Routine Cardiovascular Exam Cardiovascular: Present RRR *Routine Abdominal Exam Abdominal: Present soft and normoactive bowel sounds; Absent tenderness *Routine Rectal Exam Patient deferred: visual exam *Routine Exam External: Present normal urethra appearance; Absent erythema or discharge *Routine Extremities Exam Extremities: Absent cyanosis, clubbing or edema *Routine Skin Exam Skin: Present intact and warm; Absent rash *Routine Neurological Exam Neurological: Present alert, moving all extremities and normal speech; Absent altered mental status Comments: Alert and oriented to person and place Results Data Completed and Pending Labs on day of discharge: Labs from last 24 hours 02/12/24 02/11/24 02/11/24 05:43 18:15 17:48 WBC 4.6 L RBC 2.49 L Hgb 7.8 L 8.2 L Hct 24.6 L 25.6 L MCV 98.8 MCH 31.5 H MCHC 31.9 RDW 17.0 Plt Count 188 MPV 9.2 Neut % (Auto) 75.3 Lymph % (Auto) 18.4 [place] % (Auto) 5.4 Eos % (Auto) 0.7 Baso % (Auto) 0.2 Neut # (Auto) 3.5 Lymph # (Auto) 0.9 [place] # (Auto) 0.3 Eos # (Auto) 0.0 Baso # (Auto) 0.0 Retic Count (auto) 1.9 Sodium 141 Potassium 4.0 Chloride 112 H Carbon Dioxide 20 L Anion Gap 13.0 BUN 54 H Creatinine 2.60 H Estimated Creat Clear 21 Estimated GFR 18 L* Est GFR ( Amer) 21 L Glucose 88 POC Glucose Calcium 9.4 Magnesium 1.7 D Iron 58 TIBC 241 L Iron Saturation 24.99944 Ferritin 232 Vitamin B12 354 Folate > 20.00 Hepatitis C Antibody Hep C Ab Comment 02/11/24 02/11/24 02/11/24 15:55 14:49 10:54 WBC RBC Hgb 7.9 L Hct 24.8 L MCV MCH MCHC RDW Plt Count MPV Neut % (Auto) Lymph % (Auto) [place] % (Auto) Eos % (Auto) Baso % (Auto) Neut # (Auto) Lymph # (Auto) [place] # (Auto) Eos # (Auto) Baso # (Auto) Retic Count (auto) Sodium Potassium Chloride Carbon Dioxide Anion Gap BUN Creatinine Estimated Creat Clear Estimated GFR Est GFR ( Amer) Glucose POC Glucose 94 97 Calcium Magnesium Iron TIBC Iron Saturation Ferritin Vitamin B12 Folate Hepatitis C Antibody Hep C Ab Comment 02/10/24 16:00 WBC RBC Hgb Hct MCV MCH MCHC RDW Plt Count MPV Neut % (Auto) Lymph % (Auto) [place] % (Auto) Eos % (Auto) Baso % (Auto) Neut # (Auto) Lymph # (Auto) [place] # (Auto) Eos # (Auto) Baso # (Auto) Retic Count (auto) Sodium Potassium Chloride Carbon Dioxide Anion Gap BUN Creatinine Estimated Creat Clear Estimated GFR Est GFR ( Amer) Glucose POC Glucose Calcium Magnesium Iron TIBC Iron Saturation Ferritin Vitamin B12 Folate Hepatitis C Antibody Non reactive Hep C Ab Comment Comment DS: Diagnosis Discharge Diagnosis (1) Anemia: Status: Acute Code(s): D64.9 - Anemia, unspecified Qualifiers: Anemia type: unspecified type Qualified Code(s): D64.9 - Anemia, unspecified (2) Vaginal discharge: Status: Acute Code(s): N89.8 - Other specified noninflammatory disorders of vagina (3) Diabetes mellitus: Status: Acute Code(s): E11.9 - Type 2 diabetes mellitus without complications Qualifiers: Diabetes mellitus type: type 2 Diabetes mellitus senior care insulin use: with termite control technician use Diabetes mellitus complication status: with hyperglycemia Qualified Code(s): E11.65 - Type 2 diabetes mellitus with hyperglycemia; Z79.4 - snf (current) use of insulin (4) CKD (chronic kidney disease): Status: Acute Code(s): N18.9 - Chronic kidney disease, unspecified (5) Hyperlipidemia: Status: Acute Code(s): E78.5 - Hyperlipidemia, unspecified (6) GERD without esophagitis: Status: Acute Code(s): K21.9 - Gastro-esophageal reflux disease without esophagitis (7) Hypertension: Status: Acute Code(s): I10 - Essential (primary) hypertension (8) Adult failure to thrive: Status: Acute Code(s): R62.7 - Adult failure to thrive Meds Home Medications and Allergies Home Medications ?Medication ?Instructions ?Recorded ?Confirmed ?Type aspirin 81 mg tablet,delayed 81 mg PO DAILY 06/22/19 02/11/24 History release acetaminophen 500 mg tablet 1,000 mg (2 x 500 mg) PO BID #120 01/05/24 02/11/24 Rx tabs amlodipine 5 mg tablet 5 mg PO DAILY #90 tabs 01/05/24 02/11/24 Rx benazepril 10 mg tablet 10 mg PO DAILY #90 tabs 01/05/24 02/11/24 Rx insulin aspar prot-insulin aspart 10 unit SQ QAM 01/05/24 02/11/24 History 100 unit/mL (70-30) subcutaneous pen (Novolog Mix 70-30FlexPen U-100) pravastatin 20 mg tablet 20 mg PO DAILY #90 tabs 01/05/24 02/11/24 Rx saxagliptin 2.5 mg tablet 2.5 mg PO DAILY #90 tabs 01/26/24 02/11/24 Rx amino acids-protein hydrolysate 15 1 ea PO DAILY 02/11/24 02/11/24 History gram-101 kcal/30 mL oral liquid multivitamin,uq-nytb-Ff-FA-min 1 tab PO DAILY 02/11/24 02/11/24 History pantoprazole 40 mg tablet,delayed 40 mg PO BID 30 days #60 tabs 02/12/24 Rx release New Prescriptions to Start Prescriptions: Jony Sands Allergies Allergy/AdvReac Type Severity Reaction Status Date / Time No Known Allergies Allergy Verified 01/07/24 15:02 Discharge Plan Disposition Patient Disposition: er Intermediate Care Fac Condition: Good Discharge Order Discharge Orders: Discharge Order (Routine); Ordered 02/12/24 Ordered By: Jony Sharp Follow up Plan Prescriptions/Medication Reconciliation: New pantoprazole 40 mg Tablet,Delayed Release (Dr/Ec) 40 mg PO BID 30 Days Qty: 60 0RF Continued acetaminophen 500 mg tablet 1,000 mg PO BID Qty: 120 11RF amlodipine 5 mg tablet 5 mg PO DAILY Qty: 90 3RF benazepril 10 mg tablet 10 mg PO DAILY Qty: 90 3RF pravastatin 20 mg tablet 20 mg PO DAILY Qty: 90 3RF insulin asp prt-insulin aspart [Novolog Mix 70-30FlexPen U-100] 100 unit/mL (70-30) insulin pen 10 unit SQ QAM saxagliptin 2.5 mg tablet 2.5 mg PO DAILY Qty: 90 3RF aspirin 81 MG tablet,delayed release (DR/EC) 81 mg PO DAILY multivitamin,oh-rqfu-Df-FA-min Tablet 1 tab PO DAILY amino acids-protein hydrolys 15-101 gram-kcal/30 mL Liquid 1 ea PO DAILY Problem Reconciliation Problems Reviewed?: Yes Patient Discharge Instructions ACTIVITY: Continue current activity DIET: continue same diet Patient Instructions: Upper GI Endoscopy, DI for Colonoscopy, DI for Urinary Tract Infection (UTI) Print Language: Tristanian Providers Primary Care Provider: Vamshi Espinal Provider: Jony Sharp Attending Provider: Jony Sharp
--- NOTE | 2024-02-12 09:40 | SW/DCPLANNER ---
Patient currently resides at [facility] level of care. I have updated Zehra phillips/ Chucky Arauz that patient will return today.
[2024-02-13 07:12] LABS: Trichomonas Vaginalis, NAA Negative (Negative)
[2024-02-15 19:17] LABS: Erythropoietin 11.5 mIU/mL (2.6-18.5)
== END 2024-02-12 11:45 ==
LOC: ER 21:22 → 2ND 21:26
PROVIDERS: Internal Medicine; Internal Medicine Gastroenterology; Physician Assistant; Admitting Provider Internal Medicine Adolescent Medicine; Emergency Provider Emergency Medicine; PCP Family Medicine; Visit Provider Internal Medicine Adolescent Medicine
PROC: 0DJ08ZZ Inspection of Upper Intestinal Tract, Via Natural or Artificial Opening Endoscopic (ICD-10-PCS; CPT 45378; principal; 2024-02-11 15:00)
DX: D64.9 Anemia, unspecified (principal); Z12.11 Encounter for screening for malignant neoplasm of colon; K29.40 Chronic atrophic gastritis without bleeding; K21.9 Gastro-esophageal reflux disease without esophagitis; N89.8 Other specified noninflammatory disorders of vagina; E11.65 Type 2 diabetes mellitus with hyperglycemia; Z79.4 Long term (current) use of insulin; N18.4 Chronic kidney disease, stage 4 (severe); E78.5 Hyperlipidemia, unspecified; I12.9 Hypertensive chronic kidney disease with stage 1 through stage 4 chronic kidney disease, or unspecified chronic kidney disease; R62.7 Adult failure to thrive; R53.1 Weakness; E11.22 Type 2 diabetes mellitus with diabetic chronic kidney disease; Z79.899 Other long term (current) drug therapy; K64.1 Second degree hemorrhoids
CPT/HCPCS: 43239; G0121; 36415; 36430; 80048; 80053; 81001; 82272; 82607; 82668; 82728; 82746; 82962; 83036; 83540; 83550; 83735; 84145; 85014; 85018; 85025; 85044; 85610; 86140; 86803; 86850; 87086; 87210; 87389; 87491; 87591; 87661; 88305; 88342; 97110; 97163; 97165; 97530; 99251; 99285; G0328; G0378; J0696; J7030; P9016

== ENCOUNTER 2024-02-23 07:11 | Outpatient (CLI) | payer MEDICARE, SELFPAY ==
[2024-02-23 08:10] VITALS: BMI 26.6
[2024-02-23 10:14] LABS: Hematocrit 24.5 % (37.0-47.0); Hemoglobin 8.1 g/dL (12.2-16.2)
--- NOTE | 2024-02-23 10:59 | PC.NURSE ---
1020 notified [place] that blood transfusion canceled due to today's lab results Hgb 8.1/ Hct 24.[address] Espinal.
== END 2024-02-23 11:00 | disposition home or self-care (01) ==
LOC: INF 07:13
PROVIDERS: PCP Family Medicine; Visit Provider Family Medicine
DX: D50.9 Iron deficiency anemia, unspecified (principal)
CPT/HCPCS: 36415; 85014; 85018; 86850

== ENCOUNTER 2024-02-29 18:53 | Outpatient (CLI) | payer MEDICARE, SELFPAY ==
[2024-02-29 19:16] LABS: Basophils % 0.5 % (0.1-2.0); Eosinophils # 0.1 K/mm3 (0.0-0.4); Eosinophils % 1.3 % (0.1-12.0); Lymphocytes # 0.9 K/mm3 (0.7-4.5); Lymphocytes % 20.9 % (10-50); Mean Corpuscular HGB Conc 33.5 g/dL (31.8-35.4); Mean Corpuscular Hemoglobin 31.8 pg (27.0-31.2); Mean Corpuscular Volume 94.8 fl (81-99); Mean Platelet Volume 7.8 fl (7.4-10.4); Monocytes # 0.3 K/mm3 (0.1-1.0); Neutrophils # 3.2 K/mm3 (1.8-7.8); Neutrophils % 71.3 % (37.0-80.0); Platelet Count 182 K/mm3 (142-424); Red Blood Count 2.13 M/mm3 (4.20-5.40); Red Cell Distribution Width 16.6 % (11.5-17.5); White Blood Count 4.4 K/mm3 (4.8-10.8)
[2024-02-29 19:34] LABS: Hematocrit 20.2 % (37.0-47.0); Hemoglobin 6.8 g/dL (12.2-16.2)
== END 2024-02-29 23:59 | disposition home or self-care (01) ==
LOC: LAB.DROPOF 18:57
PROVIDERS: PCP Family Medicine; Visit Provider Family Medicine
DX: E11.65 Type 2 diabetes mellitus with hyperglycemia (principal); Z79.4 Long term (current) use of insulin; D64.9 Anemia, unspecified; N18.9 Chronic kidney disease, unspecified
CPT/HCPCS: 85025

== ENCOUNTER 2024-03-02 09:08 | Outpatient (CLI) | payer MEDICARE, SELFPAY ==
[2024-03-02] VITALS (10 sets, daily range): BP systolic 121–142; BP diastolic 58–77; PULSE 62–96; RESP 15–17; TEMP 36.4–37; O2SAT 99–100
[2024-03-02] MEDS: 0.9 % SODIUM CHLORIDE 250 ML 25 ML IV (11:15)
--- NOTE | 2024-03-02 11:24 | PC.NURSE ---
1118-BLOOD TRANSFUSION STARTED AT 100 ML/HR AT THIS TIME.
--- NOTE | 2024-03-02 12:09 | PC.NURSE ---
1148 - INCREASED RATE TO 150 ML/HR AT THIS TIME.
--- NOTE | 2024-03-02 12:35 | PC.NURSE ---
1218-INCREASED RATE TO 200 ML/HR AT THIS TIME.
--- NOTE | 2024-03-02 14:15 | PC.NURSE ---
RATE WAS INCREASED TO 250 ML/HR AT 1248.
== END 2024-03-02 14:30 | disposition home or self-care (01) ==
LOC: INF 09:09
PROVIDERS: PCP Family Medicine; Visit Provider Nurse Practitioner Family
DX: D50.9 Iron deficiency anemia, unspecified (principal)
CPT/HCPCS: 36430; 86850; P9016

== ENCOUNTER 2024-03-09 15:48 | Observation (INO) | payer MEDICARE, SELFPAY ==
[2024-03-09] VITALS (9 sets, daily range): BP systolic 119–140; BP diastolic 59–85; PULSE 83–100; RESP 16–20; TEMP 36.8–36.9; O2SAT 95–99; BMI 29.3
--- NOTE | 2024-03-09 15:48 | ED_ITS ---
Discharge Plan Disposition Patient Disposition: Home, Self-Care Chief Complaint: Recheck/Abnormal Lab/Rx Prescriptions Prescriptions: No Action acetaminophen 500 mg tablet 1,000 mg PO BID Qty: 120 11RF amlodipine 5 mg tablet 5 mg PO DAILY Qty: 90 3RF benazepril 10 mg tablet 10 mg PO DAILY Qty: 90 3RF pravastatin 20 mg tablet 20 mg PO DAILY Qty: 90 3RF insulin asp prt-insulin aspart [Novolog Mix 70-30FlexPen U-100] 100 unit/mL (70-30) insulin pen 10 unit SQ QAM saxagliptin 2.5 mg tablet 2.5 mg PO DAILY Qty: 90 3RF aspirin 81 MG tablet,delayed release (DR/EC) 81 mg PO DAILY multivitamin,nw-hglp-Yj-FA-min Tablet 1 tab PO DAILY pantoprazole 40 mg Tablet,Delayed Release (Dr/Ec) 40 mg PO BID 30 Days Qty: 60 0RF Prostat Tablet 1 tab PO DAILY Referrals Follow up/Referrals: Vamshi Espinal MD [Primary Care Provider] - See instructions Clinical Impressions Clinical Impression: Acute kidney injury superimposed on CKD, Hypercalcemia, Acute hyperkalemia Print Language Print Language: Croatian Discharge ED Provider: Howard Benson General Adult HPI General Chief complaint: Recheck/Abnormal Lab/Rx Stated complaint: Recheck Time Seen by Provider: 03/09/24 15:49 History of Present Illness HPI narrative: Please note that above description of symptoms, in this electronic medical record under categorization of recalled from ER triage doctor by RN are reflective of an initial nursing assessment, however, is not reflective of my full history and physical exam that was personally taken and clarified. Consequentially, this preceding description of symptoms, which may include the patient's categorized chief complaint in the EMR, do not reflect my personal clinical impression, and the ultimate description of history of present illness and patient stated complaints should be deferred to this section of the note. Unless stated otherwise or congruent with this section of the note, additional signs, symptoms, or incongruence should be interpreted as inaccurate with my clinical impression. Related Data Home Medications ?Medication ?Instructions ?Recorded ?Confirmed aspirin 81 mg tablet,delayed 81 mg PO DAILY 06/22/19 03/02/24 release insulin aspar prot-insulin aspart 10 unit SQ QAM 01/05/24 03/02/24 100 unit/mL (70-30) subcutaneous pen (Novolog Mix 70-30FlexPen U-100) multivitamin,qk-rspv-Kb-FA-min 1 tab PO DAILY 02/11/24 03/02/24 pollens extract 1 tab PO DAILY 03/02/24 03/02/24 Previous Rx's ?Medication ?Instructions ?Recorded acetaminophen 500 mg tablet 1,000 mg (2 x 500 mg) PO BID #120 01/05/24 tabs amlodipine 5 mg tablet 5 mg PO DAILY #90 tabs 01/05/24 benazepril 10 mg tablet 10 mg PO DAILY #90 tabs 01/05/24 pravastatin 20 mg tablet 20 mg PO DAILY #90 tabs 01/05/24 saxagliptin 2.5 mg tablet 2.5 mg PO DAILY #90 tabs 01/26/24 pantoprazole 40 mg tablet,delayed 40 mg PO BID 30 days #60 tabs 02/12/24 release Allergies Allergy/AdvReac Type Severity Reaction Status Date / Time No Known Allergies Allergy Verified 02/18/24 10:00 [facility] Disclaimer: The information contained in this section may have been updated after the patient was seen, as this information can be updated by other users. Medical History Iron deficiency anemia Normal colonoscopy Thyroid cyst CULLEN (acute kidney injury) Generalized weakness Effusion, right shoulder Knee pain Hyperlipidemia Diabetes mellitus Dental decay Hypertension GERD without esophagitis Concussion Contusion of scalp Forehead laceration Nose fracture Acute UTI Contusion of nose, initial encounter Elevated troponin Uremia Social History Smoking Status: Never smoker alcohol intake: never current occupational status: retired Travel in the last 8 weeks: None housing: house marital status: single current occupational exposures/hazards: No caffeine: Yes Other Medical History Have you received the Flu Vaccine for this season: No Have you received the Pneumonia Vaccine: No (unknown) ROS Obtained: Yes All systems reviewed & no additional complaints except as documented Physical Exam General General appearance: alert Head Head exam: atraumatic and normocephalic Eye Eye exam: Present normal appearance, PERRL and EOMI ENT ENT exam: Present mucous membranes dry Neck Neck exam: Present normal inspection, full ROM and trachea midline Respiratory Respiratory exam: Absent respiratory distress, wheezes, stridor, accessory muscle use or prolonged expiratory phase Cardiovascular Cardiovascular exam: Present other (Pulses equal symmetric in upper and lower extremities) Abdominal Exam Abdominal exam: Present soft; Absent distention, tenderness, guarding, rebound, rigidity or pulsatile mass Extremities Exam Extremities exam: Absent edema Neurological Exam Neurological exam: Present alert, oriented X3 and CN II-XII intact; Absent motor sensory deficit Skin Skin exam: Present warm and dry; Absent diaphoresis or erythema Medical Decision Making Medical Records Medical records reviewed: Yes I reviewed the patient's medical records. Screening: Per USPSTF and CDC recommendations, given the prevalence of disease in our region, it is our hospital?s policy to screen for HIV and viral Hepatitis for all patients aged 18 and over and those with ongoing risk factors. [place] Inquiry Pt receiving controlled substance: No Ed[place] was queried for this patient: No Vital Signs: 03/09/24 15:48 03/09/24 16:45 03/09/24 17:00 Temperature 98.4 F Temperature Source Oral Pulse Rate 91 H 88 Pulse Rate [Radial] 83 Respiratory Rate 16 Blood Pressure 138/74 119/62 Blood Pressure [Right Arm] 133/65 Blood Pressure Mean [Right Arm] 87 Blood Pressure Source [Right Arm] Automatic Cuff Blood Pressure Position [Right Arm] Sitting 02 Sat by Pulse Oximetry 98 97 97 Oxygen Delivery Method Room Air 03/09/24 17:30 Temperature Temperature Source Pulse Rate 93 H Pulse Rate [Radial] Respiratory Rate Blood Pressure 140/74 Blood Pressure [Right Arm] Blood Pressure Mean [Right Arm] Blood Pressure Source [Right Arm] Blood Pressure Position [Right Arm] 02 Sat by Pulse Oximetry 97 Oxygen Delivery Method Lab Data Lab Results 03/09/24 16:00: WBC 6.7, RBC 2.57 L, Hgb 8.2 L, Hct 24.7 L, MCV 96.0, MCH 32.1 H , MCHC 33.4, RDW 16.7, Plt Count 153, MPV 7.5, Neut % (Auto) 75.1, Lymph % (Auto) 18.5, [place] % (Auto) 5.6, Eos % (Auto) 0.6, Baso % (Auto) 0.3, Neut # (Auto) 5.0, Lymph # (Auto) 1.2, [place] # (Auto) 0.4, Eos # (Auto) 0.0, Baso # (Auto) 0.0, Sodium 137, Potassium 5.7 H, Chloride 104, Carbon Dioxide 22, Anion Gap 16.7 H, BUN 71 H, Creatinine 3.50 H, Estimated Creat Clear 15, Estimated GFR 12 L*, Est GFR ( Amer) 15 L*, Glucose 109 H, Calcium 11.6 H, Total Bilirubin 0.6, AST 23, ALT 12, Alkaline Phosphatase 62, Total Protein 7.0, A lbumin 3.2 L, Globulin 3.8 H, Albumin/Globulin Ratio 0.8 L 03/09/24 16:46: Urine Color Yellow, Urine Appearance Clear, Urine pH 7.0, Ur Specific [place] 1.015, Urine Protein 2+ A, Urine Glucose (UA) Negative, Urine Ketones Negative, Urine Blood 2+ A, Urine Nitrate Negative, Urine Bilirubin Negative, Urine Urobilinogen 0.2, Ur Leukocyte Esterase 3+ A, Urine RBC Tntc, Urine WBC Tntc, Ur Squamous Epith Cells 5-10, Urine Bacteria 3+ 03/09/24 16:00 03/09/24 16:00 Orders (Tests/Meds): ED MEDICATIONS Discontinued Medications Generic Name Dose Route Start Last Admin Trade Name Freq PRN Reason Stop Dose Admin Sodium Chloride 1,000 mls @ 999 mls/hr 03/09/24 16:30 03/09/24 16:52 Sod Chlor 0.9% 1000ml Bag IV 03/09/24 17:30 999 mls/hr .Q1H1M ONE Administration Ceftriaxone Sodium 1 gm/ 50 mls @ 100 mls/hr 03/09/24 17:30 03/09/24 17:28 Sodium Chloride IV 03/09/24 17:59 100 mls/hr ONCE ONE Administration ORDERS Category Date Time Status CBC w/Auto Diff [Complete Blood Count Auto Diff] Stat Lab 03/09/24 16:00 Completed CMP [Comprehensive Metabolic Panel] Stat Lab 03/09/24 16:00 Completed Complete Blood Count Auto Diff AMLAB Lab 03/10/24 06:00 Ordered Comprehensive Metabolic Panel AMLAB Lab 03/10/24 06:00 Ordered Creatinine,Urine Random Stat Lab 03/09/24 16:46 Received Hep C Ab with Reflex to RNA Stat Lab 03/09/24 16:00 Received Magnesium AMLAB Lab 03/10/24 06:00 Ordered Sodium,Urine Random Stat Lab 03/09/24 16:46 Received UA [Urinalysis and Microscopic] Stat Lab 03/09/24 16:46 Completed Urine Culture Stat Micro 03/09/24 16:46 Received Medical Decision Narrative: 84-year-old female history of CKD, hypertension, hyperlipidemia, anemia of chronic disease, diabetes presenting for medical evaluation. Patient was seen by nephrology Dr. Alanis at [facility] today, 03/09 for routine follow-up. Labs were drawn, concern for hypercalcemia and CULLEN. Corrected calcium 12.6, hemoglobin 8.2, potassium elevated at 5.7, BUN 65 creatinine 3.3. Sent back to custodial at [facility]. Received call shortly thereafter stating she needs to come to the emergency department for fluids and further evaluation. Patient was sent here for further evaluation. States that she is urinated 3-4 times a day, but unsure because she wears a depends. No dysuria, hematuria. Also states that she has no other complaints. Would not of come had not been at the behest of her driller operator and custodial. History was obtained via conversation with patient, primary care physician, outside hospital chart review, EMS. On arrival, patient hemodynamically stable, alert, oriented to person and situation, appropriate, GCS 15, moving all extremities spontaneously, pupils equal and reactive to light. Full physical exam performed and significant for chronically ill-appearing female who is in no acute distress. She does have dry mucous membranes. Abdomen soft, nontender, nondistended. No overlying skin changes. Normotensive, nontachycardic, saturating 98 to 100% on room air and in no acute distress. Differential includes prerenal CULLEN, intrarenal CULLEN, UTI, medication induced, ESRD, dehydration, other metabolic derangement, among others. Patient placed on continuous cardiac monitoring and continuous pulse ox with initial blood pressure 133/65, heart rate 83, saturation 98% on room air. Patient was given 1 L fluid bolus, p.o. challenge for symptomatic management and correction of underlying abnormalities. Workup independently interpreted and significant for CULLEN on CKD. Patient mildly hyperkalemic and hypercalcemic. Likely secondary to dehydration. UA with concern for UTI. 1 g ceftriaxone given. Urine sodium and creatinine pending. [facility] was contacted and patient's driller operator was able to speak with me. Case was discussed. She recommended fluids, reevaluating labs, transfer if patient not improving. Because patient still producing urine, no acute distress, I feel she is appropriate for admission and serial labs. Hospitalist was contacted and interactive discussion was had, ultimately patient to be admitted. Given patient presentation, workup, history, this most likely represents CULLEN on CKD in the setting of dehydration with associated hyperkalemia and hypercalcemia. Because patient high risk for clinical decompensation, deemed appropriate for inpatient admission. Results were relayed to patient who voiced understanding and patient was agreeable to inpatient admission and management. Patient was admitted to the hospital for further definitive management. Design Printing Machine Setter disclaimer Much of this encounter note is an electronic senior java web developer spoken language to printed text. Electronic senior java web developer of the spoken language may permit errors. Although I have reviewed the note, some errors may still exist. Critical Care Critical Care Time Critical Care Time: No
[2024-03-09 16:23] LABS: Basophils % 0.3 % (0.1-2.0); Eosinophils % 0.6 % (0.1-12.0); Hematocrit 24.7 % (37.0-47.0); Hemoglobin 8.2 g/dL (12.2-16.2); Lymphocytes # 1.2 K/mm3 (0.7-4.5); Lymphocytes % 18.5 % (10-50); Mean Corpuscular HGB Conc 33.4 g/dL (31.8-35.4); Mean Corpuscular Hemoglobin 32.1 pg (27.0-31.2); Mean Platelet Volume 7.5 fl (7.4-10.4); Monocytes # 0.4 K/mm3 (0.1-1.0); Monocytes % 5.6 % (1.7-9.3); Neutrophils % 75.1 % (37.0-80.0); Platelet Count 153 K/mm3 (142-424); Red Blood Count 2.57 M/mm3 (4.20-5.40); Red Cell Distribution Width 16.7 % (11.5-17.5); White Blood Count 6.7 K/mm3 (4.8-10.8)
[2024-03-09 16:31] LABS: Alanine Aminotransferase 12 U/L (12-78); Albumin Level 3.2 g/dl (3.5-5.0); Albumin/Globulin Ratio 0.8 (1.1-1.8); Alkaline Phosphatase 62 U/L (38-126); Anion Gap 16.7 mEq/L (5-15); Aspartate Amino Transferase 23 U/L (14-36); Bilirubin,Total 0.6 mg/dl (0.2-1.3); Blood Urea Nitrogen 71 mg/dl (7-17); Calcium 11.6 mg/dl (8.4-10.2); Carbon Dioxide 22 mmol/L (22.0-30.0); Chloride 104 mmol/L (98-107); Creatinine Clearance Estimated 15 mL/min (50-200); Estimated Glomerular Filt Rate 12 ml/min (>60); GFR (African American) 15 ML/MIN (>60); Globulin 3.8 g/dL (1.3-3.2); Glucose 109 mg/dl (74-100); Potassium 5.7 mmoL/L (3.5-5.1); Sodium 137 mmol/L (136-145)
[2024-03-09 16:50] LABS: Microscopic, Urine URINE MICROSCOPIC (MICROSCOPIC)
[2024-03-09] MEDS: 0.9 % SODIUM CHLORIDE 1000ML 1,000 ML 999 ML IV (16:52)
[2024-03-09 16:53] LABS: Appearance,Urine CLEAR (Clear); Bilirubin,Urine Negative (Negative); Blood, Urine 2+ (Negative); Color,Urine YELLOW (Yellow); Glucose,Urine (UA) Negative (Negative); Ketones,Urine Negative (Negative); Leukocyte Esterase,Urine 3+ (Negative); Nitrate,Urine Negative (Negative); Protein,Urine 2+ (Negative); Specific Gravity, Urine 1.015 (1.005-1.030); Urobilinogen,Urine 0.2 EU/dl (0.2)
--- NOTE | 2024-03-09 17:11 | PC.NURSE ---
Marie Leonard is on the phone with for a consult with Neph per Dr. Benson.
[2024-03-09 17:16] LABS: Bacteria,Urine 3+ /lpf; RBC,Urine TNTC #/hpf (0-3); WBC,Urine TNTC #/hpf (0-3)
[2024-03-09] MEDS: CEFTRIAXONE 1 GM 1 GM in 0.9 % SODIUM CHLORIDE 50 ML IV (17:28)
--- NOTE | 2024-03-09 17:49 | PC.NURSE ---
o/p with at this time.
--- NOTE | 2024-03-09 18:01 | PC.NURSE ---
call to rn house supervisor for bed placement
--- NOTE | 2024-03-09 18:02 | P.HP_ITS ---
History of Present Illness *Admission Date: 03/09/24 *Reason for visit:: abnormal labs [facility] Disclaimer: The information contained in this section may have been updated after the patient was seen, as this information can be updated by other users. Medical History Iron deficiency anemia Normal colonoscopy Thyroid cyst CULLEN (acute kidney injury) Generalized weakness Effusion, right shoulder Knee pain Hyperlipidemia Diabetes mellitus Dental decay Hypertension GERD without esophagitis Concussion Contusion of scalp Forehead laceration Nose fracture Acute UTI Contusion of nose, initial encounter Elevated troponin Uremia Social History Smoking Status: Never smoker alcohol intake: never current occupational status: retired Travel in the last 8 weeks: None housing: house marital status: single current occupational exposures/hazards: No caffeine: Yes Other Medical History Have you received the Flu Vaccine for this season: No Have you received the Pneumonia Vaccine: No (unknown) Review of Systems Review of Systems Review of systems (narrative): 14 point review of systems performed, pertinent positives and negatives as per HPI Meds Home Medications and Allergies Home Medications ?Medication ?Instructions ?Recorded ?Confirmed ?Type aspirin 81 mg tablet,delayed 81 mg PO DAILY 06/22/19 03/02/24 History release acetaminophen 500 mg tablet 1,000 mg (2 x 500 mg) PO BID #120 01/05/24 03/02/24 Rx tabs amlodipine 5 mg tablet 5 mg PO DAILY #90 tabs 01/05/24 03/02/24 Rx benazepril 10 mg tablet 10 mg PO DAILY #90 tabs 01/05/24 03/02/24 Rx insulin aspar prot-insulin aspart 10 unit SQ QAM 01/05/24 03/02/24 History 100 unit/mL (70-30) subcutaneous pen (Novolog Mix 70-30FlexPen U-100) pravastatin 20 mg tablet 20 mg PO DAILY #90 tabs 01/05/24 03/02/24 Rx saxagliptin 2.5 mg tablet 2.5 mg PO DAILY #90 tabs 01/26/24 03/02/24 Rx multivitamin,ac-jlud-Gu-FA-min 1 tab PO DAILY 02/11/24 03/02/24 History pantoprazole 40 mg tablet,delayed 40 mg PO BID 30 days #60 tabs 02/12/24 03/02/24 Rx release pollens extract 1 tab PO DAILY 03/02/24 03/02/24 History New Prescriptions to Start Prescriptions: Allergies Allergy/AdvReac Type Severity Reaction Status Date / Time No Known Allergies Allergy Verified 02/18/24 10:00 Exam Data for Last 24 hours Vital signs and Labs for Last 24 Hours: Temp Pulse Resp BP Pulse Ox O2 Del Method 98.4 F 93 H 16 140/74 97 Room Air 03/09/24 15:48 03/09/24 17:30 03/09/24 15:48 03/09/24 17:30 03/09/24 17:30 03/09/24 15:48 Laboratory Results - last 24 hr 03/09/24 16:00: WBC 6.7, RBC 2.57 L, Hgb 8.2 L, Hct 24.7 L, MCV 96.0, MCH 32.1 H , MCHC 33.4, RDW 16.7, Plt Count 153, MPV 7.5, Neut % (Auto) 75.1, Lymph % (Auto) 18.5, [place] % (Auto) 5.6, Eos % (Auto) 0.6, Baso % (Auto) 0.3, Neut # (Auto) 5.0, Lymph # (Auto) 1.2, [place] # (Auto) 0.4, Eos # (Auto) 0.0, Baso # (Auto) 0.0, Sodium 137, Potassium 5.7 H, Chloride 104, Carbon Dioxide 22, Anion Gap 16.7 H, BUN 71 H, Creatinine 3.50 H, Estimated Creat Clear 15, Estimated GFR 12 L*, Est GFR ( Amer) 15 L*, Glucose 109 H, Calcium 11.6 H, Total Bilirubin 0.6, AST 23, ALT 12, Alkaline Phosphatase 62, Total Protein 7.0, Albumin 3.2 L, Globulin 3.8 H, Albumin/Globulin Ratio 0.8 L 03/09/24 16:46: Urine Color Yellow, Urine Appearance Clear, Urine pH 7.0, Ur Specific [place] 1.015, Urine Protein 2+ A, Urine Glucose (UA) Negative, Urine Ketones Negative, Urine Blood 2+ A, Urine Nitrate Negative, Urine Bilirubin Negative, Urine Urobilinogen 0.2, Ur Leukocyte Esterase 3+ A, Urine RBC Tntc, Urine WBC Tntc, Ur Squamous Epith Cells 5-10, Urine Bacteria 3+ I & O for Last 24 hours: Intake & Output 03/06/24 03/07/24 03/08/24 03/09/24 23:59 23:59 23:59 23:59 Weight 77.564 kg
[2024-03-09 18:26] LABS: Creatinine,Urine Random 22 mg/dL (Not Estab.)
--- NOTE | 2024-03-09 19:30 | EXP.HP ---
History of Present Illness *Admission Date: 03/09/24 *Reason for visit:: Elevated creatinine *History of present illness: This is an 84-year-old female that resides at [facility] and went to see her coat ironer hand today at the [facility] (Monserrat Alanis MD). Labs were acquired that were abnormal and she was contacted to present to the ED for evaluation and fluid resuscitation. The patient voices no acute symptomatology. She specifically denies dysuria, gross hematuria, flank pain, nausea, vomiting or vaginal discharge. She reports no recent diarrhea. She describes a chronic history of renal disease with 3-4 times of voiding a day. She typically wears adult diapers. A urinalysis was abnormal and she received 1 g of Rocephin in the ED. Her urine culture is pending. Her potassium is 5.7 and her creatinine is 3.5 with a baseline of 2.5. [facility] Disclaimer: The information contained in this section may have been updated after the patient was seen, as this information can be updated by other users. Medical History (Updated 03/09/24 @ 19:53 by Fercho Cespedes MD) CKD (chronic kidney disease) Iron deficiency anemia Normal colonoscopy Thyroid cyst CULLEN (acute kidney injury) Generalized weakness Effusion, right shoulder Knee pain Hyperlipidemia Diabetes mellitus Dental decay Hypertension GERD without esophagitis Concussion Contusion of scalp Forehead laceration Nose fracture Acute UTI Contusion of nose, initial encounter Elevated troponin Uremia Social History Smoking Status: Never smoker alcohol intake: never current occupational status: retired Travel in the last 8 weeks: None housing: house marital status: single current occupational exposures/hazards: No caffeine: Yes Other Medical History Have you received the Flu Vaccine for this season: Yes Have you received the Pneumonia Vaccine: Yes Review of Systems Review of Systems Review of systems:: pertinent systems reviewed and negative unless documented below Meds Home Medications and Allergies Home Medications ?Medication ?Instructions ?Recorded ?Confirmed ?Type aspirin 81 mg tablet,delayed 81 mg PO DAILY 06/22/19 03/02/24 History release acetaminophen 500 mg tablet 1,000 mg (2 x 500 mg) PO BID #120 01/05/24 03/02/24 Rx tabs amlodipine 5 mg tablet 5 mg PO DAILY #90 tabs 01/05/24 03/09/24 Rx benazepril 10 mg tablet 10 mg PO DAILY #90 tabs 01/05/24 03/09/24 Rx insulin aspar prot-insulin aspart 10 unit SQ QAM 01/05/24 03/02/24 History 100 unit/mL (70-30) subcutaneous pen (Novolog Mix 70-30FlexPen U-100) pravastatin 20 mg tablet 20 mg PO DAILY #90 tabs 01/05/24 03/09/24 Rx saxagliptin 2.5 mg tablet 2.5 mg PO DAILY #90 tabs 01/26/24 03/09/24 Rx multivitamin,io-umxf-Mt-FA-min 1 tab PO DAILY 02/11/24 03/02/24 History pantoprazole 40 mg tablet,delayed 40 mg PO BID 30 days #60 tabs 02/12/24 03/09/24 Rx release pollens extract 1 tab PO DAILY 03/02/24 03/02/24 History New Prescriptions to Start Prescriptions: Allergies Allergy/AdvReac Type Severity Reaction Status Date / Time No Known Allergies Allergy Verified 02/18/24 10:00 Exam Data for Last 24 hours Vital signs and Labs for Last 24 Hours: Temp Pulse Resp BP Pulse Ox O2 Del Method 98.2 F 95 H 20 135/85 97 Room Air 03/09/24 19:18 03/09/24 19:18 03/09/24 19:18 03/09/24 19:18 03/09/24 18:30 03/09/24 19:18 Laboratory Results - last 24 hr 03/09/24 16:00: WBC 6.7, RBC 2.57 L, Hgb 8.2 L, Hct 24.7 L, MCV 96.0, MCH 32.1 H, MCHC 33.4, RDW 16.7, Plt Count 153, MPV 7.5, Neut % (Auto) 75.1, Lymph % (Auto) 18.5, [place] % (Auto) 5.6, Eos % (Auto) 0.6, Baso % (Auto) 0.3, Neut # (Auto) 5.0, Lymph # (Auto) 1.2, [place] # (Auto) 0.4, Eos # (Auto) 0.0, Baso # (Auto) 0.0, Sodium 137, Potassium 5.7 H, Chloride 104, Carbon Dioxide 22, Anion Gap 16.7 H, BUN 71 H, Creatinine 3.50 H, Estimated Creat Clear 15, Estimated GFR 12 L*, Est GFR ( Amer) 15 L*, Glucose 109 H, Calcium 11.6 H, Total Bilirubin 0.6, AST 23, ALT 12, Alkaline Phosphatase 62, Total Protein 7.0, Albumin 3.2 L, Globulin 3.8 H, Albumin/Globulin Ratio 0.8 L 03/09/24 16:46: Urine Color Yellow, Urine Appearance Clear, Urine pH 7.0, Ur Specific [place] 1.015, Urine Protein 2+ A, Urine Glucose (UA) Negative, Urine Ketones Negative, Urine Blood 2+ A, Urine Nitrate Negative, Urine Bilirubin Negative, Urine Urobilinogen 0.2, Ur Leukocyte Esterase 3+ A, Urine RBC Tntc, Urine WBC Tntc, Ur Squamous Epith Cells 5-10, Urine Bacteria 3+, Urine Creatinine 22, Urine Sodium 64.0 I & O for Last 24 hours: Intake & Output 03/06/24 03/07/24 03/08/24 03/09/24 23:59 23:59 23:59 23:59 Weight 77.564 kg Constitutional Constitutional: no acute distress, chronically ill appearing and cooperative *Routine HEENT Exam Head: Present normocephalic Eye: Present EOMI and PERRL ENT: Present mucous membranes dry; Absent dentition normal *Routine Neck Exam Neck: Present supple and trachea midline; Absent lymphadenopathy *Routine Respiratory Exam Respiratory: Present rhonchi, normal respiratory effort and symmetric chest movement *Routine Cardiovascular Exam Cardiovascular: Present RRR *Routine Abdominal Exam Abdominal: Present soft and normoactive bowel sounds; Absent tenderness *Routine Rectal Exam Rectal:: deferred *Routine Genitalia Exam Genitalia:: deferred *Routine Extremities Exam Extremities: Present pulses intact; Absent edema *Routine Skin Exam Skin: Present warm; Absent rash *Routine Neurological Exam Neurological: Present alert, vision grossly intact, hearing grossly intact and normal speech; Absent sensory deficit or motor deficit Routine Psychiatric Exam Psychiatric: Present normal affect and cooperative Assessment and Plan *Assessment and plan (1) Acute kidney injury superimposed on CKD: Status: Acute Category: Medical Code(s): N17.9 - Acute kidney failure, unspecified; N18.9 - Chronic kidney disease, unspecified (2) Acute hyperkalemia: Status: Acute Category: Medical Code(s): E87.5 - Hyperkalemia (3) Anemia: Status: Acute Category: Medical Code(s): D64.9 - Anemia, unspecified (4) Hypertension: Status: Acute Category: Medical Code(s): I10 - Essential (primary) hypertension Plan This is an 84-year-old female who resides at [facility]. She was directed to the ED for abnormal labs and nephrology evaluation at [facility] today. Problems addressed as follows: Acute kidney injury Chronic kidney disease stage IV Hyperkalemia Baseline creatinine 2.5 Follows with [facility] nephrology Telemetry monitoring Lokelma therapy IV fluid resuscitation Bicarb therapy Trending electrolytes, magnesium and creatinine Avoiding home ARB therapy Avoiding NSAID therapy Anemia of chronic disease Recent EGD (January 2024) Trending CBC Iron saturation normal PPI therapy Hypertension Routine blood pressure monitoring Beta-layla therapy Holding home ARB therapy Advanced age Long-term care resident Debility
[2024-03-09] MEDS: HEPARIN SODIUM 5,000 UNIT/ML VIAL 5000 UNIT SUBCUT (19:59)
[2024-03-09] MEDS: PRAVASTATIN 20MG TAB 20 MG PO (19:59)
[2024-03-09] MEDS: 0.9 % SODIUM CHLORIDE 1000ML 1,000 ML 100 ML IV (19:59)
[2024-03-09] MEDS: LOKELMA 5GM PACKET 10 GM PO (19:59)
[2024-03-09] MEDS: PANTOPRAZOLE 40MG TABLET 40 MG PO (19:59)
[2024-03-10] VITALS (7 sets, daily range): BP systolic 96–151; BP diastolic 48–73; PULSE 63–100; RESP 16–18; TEMP 36.4–37.2; O2SAT 96–100; BMI 27.7
[2024-03-10 01:07] LABS: POC Glucose,Bedside 100 (70-110)
[2024-03-10] MEDS: 0.9 % SODIUM CHLORIDE 1000ML 1,000 ML 100 ML IV (04:53)
[2024-03-10 05:12] LABS: POC Glucose,Bedside 106 (70-110)
[2024-03-10 07:07] LABS: Basophils % 0.6 % (0.1-2.0); Eosinophils % 0.6 % (0.1-12.0); Hematocrit 25.3 % (37.0-47.0); Hemoglobin 8.2 g/dL (12.2-16.2); Lymphocytes # 0.8 K/mm3 (0.7-4.5); Lymphocytes % 17.2 % (10-50); Mean Corpuscular HGB Conc 32.6 g/dL (31.8-35.4); Mean Corpuscular Hemoglobin 31.3 pg (27.0-31.2); Mean Corpuscular Volume 95.9 fl (81-99); Mean Platelet Volume 7.8 fl (7.4-10.4); Monocytes # 0.3 K/mm3 (0.1-1.0); Monocytes % 6.5 % (1.7-9.3); Neutrophils # 3.5 K/mm3 (1.8-7.8); Platelet Count 142 K/mm3 (142-424); Red Blood Count 2.64 M/mm3 (4.20-5.40); Red Cell Distribution Width 16.6 % (11.5-17.5); White Blood Count 4.7 K/mm3 (4.8-10.8)
[2024-03-10 07:08] LABS: Albumin Level 2.8 g/dl (3.5-5.0); Chloride 110 mmol/L (98-107); Sodium 138 mmol/L (136-145)
[2024-03-10 07:09] LABS: Potassium 4.8 mmoL/L (3.5-5.1)
[2024-03-10 07:11] LABS: Alanine Aminotransferase 10 U/L (12-78); Anion Gap 13.8 mEq/L (5-15); Aspartate Amino Transferase 20 U/L (14-36); Blood Urea Nitrogen 64 mg/dl (7-17); Carbon Dioxide 19 mmol/L (22.0-30.0); Creatinine Clearance Estimated 14 mL/min (50-200); Estimated Glomerular Filt Rate 12 ml/min (>60); GFR (African American) 15 ML/MIN (>60)
[2024-03-10 07:12] LABS: Albumin/Globulin Ratio 0.8 (1.1-1.8); Alkaline Phosphatase 64 U/L (38-126); Bilirubin,Total 0.5 mg/dl (0.2-1.3); Calcium 10.5 mg/dl (8.4-10.2); Globulin 3.7 g/dL (1.3-3.2); Glucose 104 mg/dl (74-100); Magnesium 1.8 mg/dl (1.6-2.3); Total Protein,Serum 6.5 g/dl (6.3-8.2)
[2024-03-10] MEDS: ASPIRIN EC 81MG TABLET 81 MG PO (07:52)
[2024-03-10] MEDS: HEPARIN SODIUM 5,000 UNIT/ML VIAL 5000 UNIT SUBCUT ×2 (07:52→20:35)
[2024-03-10] MEDS: DOCUSATE SODIUM 100 MG CAPSULE PO (07:53)
[2024-03-10] MEDS: SODIUM BICARBONATE 650MG TABLET 650 MG PO ×3 (07:53→20:35)
[2024-03-10] MEDS: PANTOPRAZOLE 40MG TABLET 40 MG PO ×2 (07:53→20:35)
[2024-03-10] MEDS: BISOPROLOL 5MG TABLET 2.5 MG PO (07:53)
--- NOTE | 2024-03-10 09:23 | HMH.PHAINT1 ---
Pharmacy Intervention Comments: Home medications verified using MAR from [facility].
--- NOTE | 2024-03-10 10:17 | SW/DCPLANNER ---
Addendum entered by Marie Miranda 03/11/24 12:41: I have updated Zehra w/ [facility] that patient will return today. Original Note: This patient currently resides at [facility] level of care. I will continue to follow up w/ Zehra at [facility] until patient is medically stable for discharge. Discharge date is unknown at this time.
[2024-03-10 10:30] LABS: POC Glucose,Bedside 134 (70-110)
--- NOTE | 2024-03-10 11:19 | EXP.ACUTE.PN ---
Subjective *Date: 03/10/24 *Time: 12:15 Interval history: Patient afebrile overnight. Alert and oriented on exam this morning. Denies pain or no nausea or vomiting. Drinking independently. Medical Exam Vital signs and Labs for Last 24 Hours: Vital Signs Temp Pulse Pulse Resp BP BP Pulse Ox 03/10/24 10:27 03/10/24 08:00 100 H 03/10/24 08:00 98.9 F 96 H 16 126/55 L 100 03/10/24 08:00 03/10/24 07:58 03/10/24 06:20 03/10/24 05:55 100 H 03/10/24 05:00 03/10/24 04:00 98.0 F 98 H 16 151/73 H 98 03/10/24 03:00 03/10/24 01:00 03/10/24 00:00 80 03/10/24 00:00 97.6 F 81 16 131/54 L 97 03/09/24 23:00 03/09/24 21:00 03/09/24 20:00 100 H 03/09/24 20:00 03/09/24 19:30 95 H 18 135/63 95 03/09/24 19:18 98.2 F 95 H 20 135/85 03/09/24 18:30 89 125/60 97 03/09/24 18:00 91 H 128/59 L 99 03/09/24 17:30 93 H 140/74 97 03/09/24 17:00 88 119/62 97 03/09/24 16:45 91 H 138/74 97 03/09/24 15:48 98.4 F 83 16 133/65 98 O2 Del Method 03/10/24 10:27 Room Air 03/10/24 08:00 03/10/24 08:00 Room Air 03/10/24 08:00 Room Air 03/10/24 07:58 Room Air 03/10/24 06:20 Room Air 03/10/24 05:55 03/10/24 05:00 Room Air 03/10/24 04:00 Room Air 03/10/24 03:00 Room Air 03/10/24 01:00 Room Air 03/10/24 00:00 03/10/24 00:00 Room Air 03/09/24 23:00 Room Air 03/09/24 21:00 Room Air 03/09/24 20:00 03/09/24 20:00 Room Air 03/09/24 19:30 Room Air 03/09/24 19:18 Room Air 03/09/24 18:30 03/09/24 18:00 03/09/24 17:30 03/09/24 17:00 03/09/24 16:45 03/09/24 15:48 Room Air Intake and Output 03/09/24 03/10/24 03/10/24 23:59 07:59 15:59 Intake Total 790 / 1030 240 / 1030 Output Total 0 / 0 650 / 650 Balance 0 / 790 140 / 380 240 / 380 Intake: Intake, Oral Amount 240 / 480 240 / 480 Intake, Total IV Amount 550 / 550 0.9 % Sodium Chloride 1000ML 1, 500 / 500 000 ml @ 100 mls/hr IV .Q10H [facility] Rx#:[id number] Ceftriaxone 1 gm 1 gm In 0.9 % 50 / 50 Sodium Chloride 50 ml @ 100 mls /hr IV ONCE ONE Rx#:[id number] Output: Output, Urine Amount 0 / 0 650 / 650 Other: Number of Unmeasured Voids 1 0 Weight 73.709 kg Patient Weight 03/10/24 23:59 Weight 73.709 kg Laboratory Results - last 24 hr 03/09/24 16:00: WBC 6.7, RBC 2.57 L, Hgb 8.2 L, Hct 24.7 L, MCV 96.0, MCH 32.1 H, MCHC 33.4, RDW 16.7, Plt Count 153, MPV 7.5, Neut % (Auto) 75.1, Lymph % (Auto) 18.5, Taney % (Auto) 5.6, Eos % (Auto) 0.6, Baso % (Auto) 0.3, Neut # (Auto) 5.0, Lymph # (Auto) 1.2, Taney # (Auto) 0.4, Eos # (Auto) 0.0, Baso # (Auto) 0.0, Sodium 137, Potassium 5.7 H, Chloride 104, Carbon Dioxide 22, Anion Gap 16.7 H, BUN 71 H, Creatinine 3.50 H, Estimated Creat Clear 15, Estimated GFR 12 L*, Est GFR ( Amer) 15 L*, Glucose 109 H, Calcium 11.6 H, Total Bilirubin 0.6, AST 23, ALT 12, Alkaline Phosphatase 62, Total Protein 7.0, Albumin 3.2 L, Globulin 3.8 H, Albumin/Globulin Ratio 0.8 L 03/09/24 16:46: Urine Color Yellow, Urine Appearance Clear, Urine pH 7.0, Ur Specific Vanlue 1.015, Urine Protein 2+ A, Urine Glucose (UA) Negative, Urine Ketones Negative, Urine Blood 2+ A, Urine Nitrate Negative, Urine Bilirubin Negative, Urine Urobilinogen 0.2, Ur Leukocyte Esterase 3+ A, Urine RBC Tntc, Urine WBC Tntc, Ur Squamous Epith Cells 5-10, Urine Bacteria 3+, Urine Creatinine 22, Urine Sodium 64.0 03/09/24 20:11: POC Glucose 100 03/10/24 05:00: POC Glucose 106 03/10/24 06:03: WBC 4.7 L D, RBC 2.64 L, Hgb 8.2 L, Hct 25.3 L, MCV 95.9, MCH 31.3 H, MCHC 32.6, RDW 16.6, Plt Count 142, MPV 7.8, Neut % (Auto) 75.0, Lymph % (Auto) 17.2, Taney % (Auto) 6.5, Eos % (Auto) 0.6, Baso % (Auto) 0.6, Neut # (Auto) 3.5, Lymph # (Auto) 0.8, Taney # (Auto) 0.3, Eos # (Auto) 0.0, Baso # (Auto) 0.0, Sodium 138, Potassium 4.8, Chloride 110 H, Carbon Dioxide 19 L, Anion Gap 13.8, BUN 64 H, Creatinine 3.50 H, Estimated Creat Clear 14, Estimated GFR 12 L*, Est GFR ( Amer) 15 L*, Glucose 104 H, Calcium 10.5 H, Magnesium 1.8, Total Bilirubin 0.5, AST 20, ALT 10 L, Alkaline Phosphatase 64, Total Protein 6.5, Albumin 2.8 L D, Globulin 3.7 H, Albumin/Globulin Ratio 0.8 L 03/10/24 10:23: POC Glucose 134 H I & O for Labs for Last 24 Hours: Intake & Output 03/07/24 03/08/24 03/09/24 10/24/24 23:59 23:59 23:59 23:59 Intake Total 1030 / 1030 Output Total 0 / 0 650 / 650 Balance 0 / 790 380 / 380 Weight 77.564 kg 73.709 kg Constitutional: Present no acute distress, obese, chronically ill appearing and cooperative Head: Present atraumatic and normocephalic Comment:: Numerous caries, foul-smelling breath. Neck: Present normal inspection Respiratory: Present normal respiratory effort; Absent rhonchi, wheezes or crackles Cardiac: Present Reg Rate and Rhythm GI: Present soft and normal bowel sounds; Absent distention or tenderness Extremities: Present normal inspection and full ROM Skin: Present intact; Absent erythema Neuro: Present Grossly Intact, alert, awake and moves all extremities Assessment and Plan *Assessment and plan (1) UTI (urinary tract infection): Status: Acute Category: Medical Code(s): N39.0 - Urinary tract infection, site not specified (2) Acute kidney injury superimposed on CKD: Status: Acute Category: Medical Code(s): N17.9 - Acute kidney failure, unspecified; N18.9 - Chronic kidney disease, unspecified (3) Chronic renal disease, stage IV: Status: Acute Category: Medical Code(s): N18.4 - Chronic kidney disease, stage 4 (severe) (4) Acute hyperkalemia: Status: Acute Category: Medical Code(s): E87.5 - Hyperkalemia (5) Anemia: Status: Acute Category: Medical Code(s): D64.9 - Anemia, unspecified (6) Hypertension: Status: Acute Category: Medical Code(s): I10 - Essential (primary) hypertension Plan This is an 84-year-old female who resides at [facility]. She was directed to the ED for abnormal labs and nephrology evaluation at [facility] today. Showing response to medical management. Kidney function no worse today but no better. Continues to require serial labs and monitoring with gentle hydration. Problems addressed as follows: Acute kidney injury Chronic kidney disease stage IV Hyperkalemia Baseline creatinine 2.5, remains elevated this morning at 3.5. BUN slightly better at 64, down from 71. -Repeat CBC, CMP, magnesium ordered for the morning. Repeat BMP ordered for 4:00 this afternoon. - Follows with [facility] nephrology -Received Lokelma x 1 yesterday. Potassium 4.8 today. Magnesium 1.8. Calcium 10.5. Will hold on further treatment -Continue p.o. bicarb therapy 3 times a day -Gentle IV fluid resuscitation with NS at 100 cc an hour Avoiding home CATE inhibitor therapy Avoiding NSAID therapy UTI: Urine grossly abnormal with too numerous to count white cells and leuk esterase positive. Continue empiric ceftriaxone pending urine culture. 1 g IV daily Anemia of chronic disease Recent EGD (January 2024) Hemoglobin 8.2, stable. No active signs of bleeding Iron saturation normal PPI therapy Hypertension Routine blood pressure monitoring Beta-layla therapy Holding home ARB therapy Advanced age Long-term care resident Debility
--- NOTE | 2024-03-10 12:04 | PC.NURSE ---
TECH NOTE; NOTIFIED NURSE OF VITAL SIGNS FOR 1200 K JANEEN, SRNA
[2024-03-10] MEDS: CEFTRIAXONE SODIUM 1 GM in 0.9 % SODIUM CHLORIDE 50 ML IV (12:57)
--- NOTE | 2024-03-10 13:50 | PC.NURSE ---
Pt is aox4, bed alarm active, 20g R AC NS@100, fsbg achs, purewick in place, turn every two hours, from [facility].
[2024-03-10 16:11] LABS: POC Glucose,Bedside 98 (70-110)
[2024-03-10 16:46] LABS: Chloride 110 mmol/L (98-107); Potassium 4.7 mmoL/L (3.5-5.1); Sodium 139 mmol/L (136-145)
[2024-03-10 16:49] LABS: Anion Gap 14.7 mEq/L (5-15); Blood Urea Nitrogen 65 mg/dl (7-17); Carbon Dioxide 19 mmol/L (22.0-30.0); Creatinine Clearance Estimated 14 mL/min (50-200); Estimated Glomerular Filt Rate 12 ml/min (>60); GFR (African American) 15 ML/MIN (>60); Glucose 95 mg/dl (74-100)
[2024-03-10] MEDS: ACETAMINOPHEN 500MG TAB 1000 MG PO (20:35)
[2024-03-10] MEDS: PRAVASTATIN 20MG TAB 20 MG PO (20:35)
[2024-03-10 20:49] LABS: POC Glucose,Bedside 138 (70-110)
[2024-03-11] VITALS: BP 102/47; PULSE 60; PULSE 64; RESP 18; TEMP 36.6; O2SAT 96
--- NOTE | 2024-03-11 01:14 | ECG_ITS ---
APPROVED REPORT Exam: Resting ECG HR:67 bpm ECG Measurements Heart Rate 67 AXES NE 211 P 78 QRSd 78 QRS 10 QT 394 T 55 QTc 410 Conclusion SINUS RHYTHM WITH SINUS ARRHYTHMIA WITH FIRST DEGREE AV BLOCK ABNORMAL ECG UNCONFIRMED REPORT Electronically signed by : Vamshi Cherry MD 03/14/2024 08:40:12
--- NOTE | 2024-03-11 01:33 | PC.NURSE ---
Pt HR 130-140s for approx 7 minutes @ 0100, EKG obtained with sinus arrhythmia with 1st degree AV block result, aware
[2024-03-11] MEDS: BISOPROLOL 5MG TABLET 2.5 MG PO (01:57)
[2024-03-11 04:00] VITALS: BP 122/67; PULSE 60; PULSE 63; RESP 16; TEMP 36.4; O2SAT 97; BMI 28.7
[2024-03-11 05:33] LABS: POC Glucose,Bedside 94 (70-110)
[2024-03-11 06:56] LABS: Albumin Level 2.5 g/dl (3.5-5.0); Chloride 111 mmol/L (98-107)
[2024-03-11 06:57] LABS: Potassium 4.7 mmoL/L (3.5-5.1); Sodium 139 mmol/L (136-145)
[2024-03-11 06:59] LABS: Alanine Aminotransferase 8 U/L (12-78); Aspartate Amino Transferase 17 U/L (14-36); Blood Urea Nitrogen 65 mg/dl (7-17); Creatinine Clearance Estimated 14 mL/min (50-200); Estimated Glomerular Filt Rate 12 ml/min (>60); GFR (African American) 15 ML/MIN (>60)
[2024-03-11 07:00] LABS: Albumin/Globulin Ratio 0.7 (1.1-1.8); Alkaline Phosphatase 55 U/L (38-126); Anion Gap 15.7 mEq/L (5-15); Bilirubin,Total 0.4 mg/dl (0.2-1.3); Calcium 9.9 mg/dl (8.4-10.2); Carbon Dioxide 17 mmol/L (22.0-30.0); Globulin 3.8 g/dL (1.3-3.2); Glucose 96 mg/dl (74-100); Magnesium 1.7 mg/dl (1.6-2.3); Total Protein,Serum 6.3 g/dl (6.3-8.2)
[2024-03-11 07:13] LABS: HCV Ab Non Reactive (Non Reactive)
[2024-03-11 07:35] LABS: Basophils % 0.5 % (0.1-2.0); Eosinophils % 0.9 % (0.1-12.0); Hematocrit 22.6 % (37.0-47.0); Hemoglobin 7.3 g/dL (12.2-16.2); Lymphocytes # 0.8 K/mm3 (0.7-4.5); Lymphocytes % 24.2 % (10-50); Mean Corpuscular HGB Conc 32.5 g/dL (31.8-35.4); Mean Corpuscular Hemoglobin 31.4 pg (27.0-31.2); Mean Corpuscular Volume 96.9 fl (81-99); Monocytes # 0.2 K/mm3 (0.1-1.0); Monocytes % 7.6 % (1.7-9.3); Neutrophils # 2.1 K/mm3 (1.8-7.8); Neutrophils % 66.8 % (37.0-80.0); Platelet Count 115 K/mm3 (142-424); Red Blood Count 2.33 M/mm3 (4.20-5.40); Red Cell Distribution Width 16.6 % (11.5-17.5); White Blood Count 3.2 K/mm3 (4.8-10.8)
[2024-03-11 08:00] VITALS: BP 138/59; PULSE 60; PULSE 64; RESP 20; TEMP 37.3; O2SAT 99
[2024-03-11] MEDS: PANTOPRAZOLE 40MG TABLET 40 MG PO (09:08)
[2024-03-11] MEDS: ASPIRIN EC 81MG TABLET 81 MG PO (09:08)
[2024-03-11] MEDS: SODIUM BICARBONATE 650MG TABLET 650 MG PO ×2 (09:08→11:59)
[2024-03-11] MEDS: DOCUSATE SODIUM 100 MG CAPSULE PO (09:08)
[2024-03-11] MEDS: HEPARIN SODIUM 5,000 UNIT/ML VIAL 5000 UNIT SUBCUT (09:09)
--- NOTE | 2024-03-11 11:26 | P.DS_ITS ---
General Admission date:: 03/09/24 Discharge date: 03/11/24 HPI HPI HPI: This is an 84-year-old female that resides at [facility] and went to see her can capper today at the [facility] (Monserrat Alanis MD). Labs were acquired that were abnormal and she was contacted to present to the ED for evaluation and fluid resuscitation. The patient voices no acute symptomatology. She specifically denies dysuria, gross hematuria, flank pain, nausea, vomiting or vaginal discharge. She reports no recent diarrhea. She describes a chronic history of renal disease with 3-4 times of voiding a day. She typically wears adult diapers. A urinalysis was abnormal and she received 1 g of Rocephin in the ED. Her urine culture is pending. Her potassium is 5.7 and her creatinine is 3.5 with a baseline of 2.5. Hospital Course Hospital Course Hospital Course: This is an 84-year-old female who resides at [facility]. She was directed to the ED for abnormal labs and nephrology evaluation at [facility] today. Showing response to medical management. No significant change in kidney function. Continuing to make urine. Stable to discharge back to nursing facility for continued monitoring. Problems addressed as follows: Acute kidney injury Chronic kidney disease stage IV Hyperkalemia Baseline creatinine 2.5-3, remains elevated this morning at 3.5. Creatinine has not budged with gentle fluid resuscitation. BUN remains elevated in the 60s. Concerned that this may be her new baseline. Still making urine. Received Lokelma x 1 for her potassium level of 5.7 on admission. Showed improvement. Magnesium 1.7, potassium 4.7 on morning of discharge. Bicarb of 17, initiated on sodium bicarbonate orally 3 times a day due to her metabolic acidosis secondary to renal failure. Recommend continuing to follow with nephrology. Encourage p.o. fluid intake. Avoid NSAIDs, CATE inhibitor/ARB/ARNI for blood pressure. Given stability of findings and patient still making urine, will discharge back to nursing facility for continued monitoring with serial labs. UTI: Urine grossly abnormal with too numerous to count white cells and leuk esterase positive. Treated with ceftriaxone during admission. Previous cultures with either no growth or numerous pathogen's concerning for contaminant. Will transition to Levaquin renally dosed to complete total of 5- day course of antibiotics for her suspected UTI. Will need 1 additional day of antibiotics on 03/12 to complete course Anemia of chronic disease Recent EGD (January 2024), hemoglobin 7.3-8.2 during admission. No active signs of bleeding. Iron saturations normal at previous visit. Continue PPI therapy. Necessitate outpatient transfusion in the coming weeks. Repeat H&H in 1 week Hypertension: Blood pressure remained within normal range patient with commend holding home benazepril due to risk of continued kidney injury, and continue amlodipine 10 daily. Advanced age: Long-term care resident, Debilitated, non-ambulatory. Expressed concern to patient that her kidney dysfunction is progressing. She states, if I I . She is clear that she does not want resuscitative measures. I feel that she would be, in her current state of debility and with her wishes of CODE STATUS, a poor candidate for consideration for dialysis. Recommend continued medical management and following with nephrology regularly. Would benefit from repeat BMP to monitor kidney function and electrolytes in 2 to 3 days. Encourage p.o. fluid intake. Total time spent on discharge 32 minutes in counseling, documentation, chart review, and direct care with patient. Exam Data for Last 24 hours Vital signs and Labs for Last 24 Hours: Temp Pulse Resp BP Pulse Ox O2 Del Method 99.2 F 64 20 138/59 L 99 Room Air 03/11/24 08:00 03/11/24 08:00 03/11/24 08:00 03/11/24 08:00 03/11/24 08:00 03/11/24 11:00 Laboratory Results - last 24 hr 03/09/24 16:00: Hepatitis C Antibody Non reactive 03/10/24 16:04: POC Glucose 98 03/10/24 16:25: Sodium 139, Potassium 4.7, Chloride 110 H, Carbon Dioxide 19 L, Anion Gap 14.7, BUN 65 H, Creatinine 3.50 H, Estimated Creat Clear 14, Estimated GFR 12 L*, Est GFR ( Amer) 15 L*, Glucose 95, Calcium 10.0 03/10/24 20:39: POC Glucose 138 H 03/11/24 05:27: POC Glucose 94 03/11/24 06:12: WBC 3.2 L D, RBC 2.33 L, Hgb 7.3 L, Hct 22.6 L, MCV 96.9, MCH 31.4 H, MCHC 32.5, RDW 16.6, Plt Count 115 L, MPV 8.0, Neut % (Auto) 66.8, Lymph % (Auto) 24.2, Nash % (Auto) 7.6, Eos % (Auto) 0.9, Baso % (Auto) 0.5, Neut # (Auto) 2.1, Lymph # (Auto) 0.8, Nash # (Auto) 0.2, Eos # (Auto) 0.0, Baso # (Auto) 0.0, Sodium 139, Potassium 4.7, Chloride 111 H, Carbon Dioxide 17 L, Anion Gap 15.7 H, BUN 65 H, Creatinine 3.60 H, Estimated Creat Clear 14, Estimated GFR 12 L*, Est GFR ( Amer) 15 L*, Glucose 96, Calcium 9.9, Magnesium 1.7, Total Bilirubin 0.4, AST 17, ALT 8 L, Alkaline Phosphatase 55, Total Protein 6.3, Albumin 2.5 L D, Globulin 3.8 H, Albumin/Globulin Ratio 0.7 L I & O for Last 24 hours: Intake & Output 03/08/24 03/09/24 03/10/24 03/11/24 23:59 23:59 23:59 23:59 Intake Total 2850 / 3470 1020 / 1020 Output Total 0 / 0 650 / 650 700 / 700 Balance 0 / 790 2200 / 2820 320 / 320 Weight 77.564 kg 73.709 kg 76.26 kg Microbiology Reports for the Last 24 Hours: Microbiology 03/09/24 16:46 Urine,Clean Catch Urine Culture - Final Multiple organisms, suggests contamination. Constitutional Constitutional: no acute distress, obese, chronically ill appearing and cooperative *Routine HEENT Exam Head: Present normocephalic Eye: Present EOMI and PERRL ENT: Present mucous membranes moist Comments: Numerous caries, gingival hyperplasia. *Routine Neck Exam Neck: Present supple; Absent lymphadenopathy *Routine Respiratory Exam Respiratory: Present CTA bilaterally; Absent respiratory distress, rhonchi, wheezes or crackles *Routine Cardiovascular Exam Cardiovascular: Present RRR *Routine Abdominal Exam Abdominal: Present soft and normoactive bowel sounds; Absent tenderness *Routine Rectal Exam Patient deferred: visual exam *Routine Exam External: Present normal urethra appearance; Absent erythema or discharge *Routine Extremities Exam Extremities: Absent cyanosis, clubbing or edema *Routine Skin Exam Skin: Present intact and warm; Absent rash *Routine Neurological Exam Neurological: Present alert, moving all extremities and normal speech; Absent altered mental status Comments: Alert and oriented to person and place Results Data Completed and Pending Labs on day of discharge: Labs from last 24 hours 03/11/24 03/11/24 03/10/24 06:12 05:27 20:39 WBC 3.2 L D RBC 2.33 L Hgb 7.3 L Hct 22.6 L MCV 96.9 MCH 31.4 H MCHC 32.5 RDW 16.6 Plt Count 115 L MPV 8.0 Neut % (Auto) 66.8 Lymph % (Auto) 24.2 Nash % (Auto) 7.6 Eos % (Auto) 0.9 Baso % (Auto) 0.5 Neut # (Auto) 2.1 Lymph # (Auto) 0.8 Nash # (Auto) 0.2 Eos # (Auto) 0.0 Baso # (Auto) 0.0 Sodium 139 Potassium 4.7 Chloride 111 H Carbon Dioxide 17 L Anion Gap 15.7 H BUN 65 H Creatinine 3.60 H Estimated Creat Clear 14 Estimated GFR 12 L* Est GFR ( Amer) 15 L* Glucose 96 POC Glucose 94 138 H Calcium 9.9 Magnesium 1.7 Total Bilirubin 0.4 AST 17 ALT 8 L Alkaline Phosphatase 55 Total Protein 6.3 Albumin 2.5 L D Globulin 3.8 H Albumin/Globulin Ratio 0.7 L Hepatitis C Antibody 03/10/24 03/10/24 03/09/24 16:25 16:04 16:00 WBC RBC Hgb Hct MCV MCH MCHC RDW Plt Count MPV Neut % (Auto) Lymph % (Auto) Nash % (Auto) Eos % (Auto) Baso % (Auto) Neut # (Auto) Lymph # (Auto) Nash # (Auto) Eos # (Auto) Baso # (Auto) Sodium 139 Potassium 4.7 Chloride 110 H Carbon Dioxide 19 L Anion Gap 14.7 BUN 65 H Creatinine 3.50 H Estimated Creat Clear 14 Estimated GFR 12 L* Est GFR ( Amer) 15 L* Glucose 95 POC Glucose 98 Calcium 10.0 Magnesium Total Bilirubin AST ALT Alkaline Phosphatase Total Protein Albumin Globulin Albumin/Globulin Ratio Hepatitis C Antibody Non reactive DS: Diagnosis Discharge Diagnosis (1) UTI (urinary tract infection): Status: Acute Code(s): N39.0 - Urinary tract infection, site not specified (2) Acute kidney injury superimposed on CKD: Status: Acute Code(s): N17.9 - Acute kidney failure, unspecified; N18.9 - Chronic kidney disease, unspecified (3) Chronic renal disease, stage IV: Status: Acute Code(s): N18.4 - Chronic kidney disease, stage 4 (severe) (4) Acute hyperkalemia: Status: Acute Code(s): E87.5 - Hyperkalemia (5) Anemia: Status: Acute Code(s): D64.9 - Anemia, unspecified (6) Hypertension: Status: Acute Code(s): I10 - Essential (primary) hypertension Meds Home Medications and Allergies Home Medications ?Medication ?Instructions ?Recorded ?Confirmed ?Type aspirin 81 mg tablet,delayed 81 mg PO DAILY 06/22/19 03/09/24 History release acetaminophen 500 mg tablet 1,000 mg (2 x 500 mg) PO BID #120 01/05/24 03/09/24 Rx tabs pravastatin 20 mg tablet 20 mg PO DAILY #90 tabs 01/05/24 03/09/24 Rx saxagliptin 2.5 mg tablet 2.5 mg PO DAILY #90 tabs 01/26/24 03/09/24 Rx pantoprazole 40 mg tablet,delayed 40 mg PO BID 30 days #60 tabs 02/12/24 03/09/24 Rx release amino acids-protein hydrolysate 17 1 ea PO DAILY 03/10/24 03/10/24 History gram-100 kcal/30 mL oral liquid (Pro-Stat [facility]) amlodipine 10 mg tablet 10 mg PO DAILY 03/10/24 03/10/24 History ferrous sulfate 325 mg (65 mg 325 mg PO BID 03/10/24 03/10/24 History iron) tablet multivitamin with minerals 1 tab PO DAILY 03/10/24 03/10/24 History docusate sodium 100 mg capsule 100 mg PO DAILY PRN constipation 03/11/24 Rx 30 days #30 caps levofloxacin 750 mg tablet 750 mg PO ONCE 1 day #1 tab 03/11/24 Rx sodium bicarbonate 650 mg tablet 650 mg PO TID 30 days #90 tabs 03/11/24 Rx New Prescriptions to Start Prescriptions: Jony Churchillfloxacin Jony Sharp sodium bicarbonate Jony Shrap Allergies Allergy/AdvReac Type Severity Reaction Status Date / Time No Known Allergies Allergy Verified 02/18/24 10:00 Discharge Plan Disposition Patient Disposition: er Intermediate Care Fac Condition: Fair Follow up Plan Prescriptions/Medication Reconciliation: New docusate sodium 100 mg Capsule 100 mg PO DAILY PRN (Reason: constipation) 30 Days Qty: 30 0RF sodium bicarbonate 650 mg Tablet 650 mg PO TID 30 Days Qty: 90 0RF levofloxacin 750 mg tablet 750 mg PO ONCE 1 Days Qty: 1 0RF Rx Instructions: please administer 03/12/24 to complete abx course Continued acetaminophen 500 mg tablet 1,000 mg PO BID Qty: 120 11RF pravastatin 20 mg tablet 20 mg PO DAILY Qty: 90 3RF saxagliptin 2.5 mg tablet 2.5 mg PO DAILY Qty: 90 3RF aspirin 81 MG tablet,delayed release (DR/EC) 81 mg PO DAILY pantoprazole 40 mg Tablet,Delayed Release (Dr/Ec) 40 mg PO BID 30 Days Qty: 60 0RF amlodipine 10 mg Tablet 10 mg PO DAILY ferrous sulfate 325 mg (65 mg iron) Tablet 325 mg PO BID multivitamin with minerals Tablet 1 tab PO DAILY Pro-Stat [facility] 17-100 gram-kcal/30 mL Liquid 1 ea PO DAILY Problem Reconciliation Problems Reviewed?: Yes Patient Discharge Instructions ACTIVITY: Continue current activity DIET: continue same diet Patient Instructions: DI for Urinary Tract Infection (UTI), DI for Acute Kidney Injury Print Language: Divehi Providers Primary Care Provider: Vamshi Espinal Admit Provider: Jony Sharp Attending Provider: Jony Sharp
[2024-03-11 11:42] LABS: POC Glucose,Bedside 100 (70-110)
[2024-03-11] MEDS: CEFTRIAXONE SODIUM 1 GM in 0.9 % SODIUM CHLORIDE 50 ML IV (11:55)
[2024-03-11 12:00] VITALS: PULSE 60
== END 2024-03-11 13:42 ==
LOC: ER 18:06 → 2ND 18:07
PROVIDERS: Admitting Provider Internal Medicine Adolescent Medicine; Emergency Provider Emergency Medicine; PCP Family Medicine; Visit Provider Internal Medicine Adolescent Medicine
DX: N17.9 Acute kidney failure, unspecified (principal); E87.5 Hyperkalemia; I12.9 Hypertensive chronic kidney disease with stage 1 through stage 4 chronic kidney disease, or unspecified chronic kidney disease; N39.0 Urinary tract infection, site not specified; N18.4 Chronic kidney disease, stage 4 (severe); Z79.899 Other long term (current) drug therapy; D63.1 Anemia in chronic kidney disease
CPT/HCPCS: 36415; 80048; 80053; 81001; 82570; 82962; 83735; 84540; 85025; 86803; 87086; 93005; 99285; G0378; J0696; J1644; J7030

== ENCOUNTER 2024-03-15 12:19 | Outpatient (CLI) | payer MEDICARE, SELFPAY ==
[2024-03-15 12:36] LABS: Basophils % 0.8 % (0.1-2.0); Eosinophils # 0.1 K/mm3 (0.0-0.4); Eosinophils % 1.3 % (0.1-12.0); Hematocrit 27.3 % (37.0-47.0); Hemoglobin 8.8 g/dL (12.2-16.2); Lymphocytes # 1.2 K/mm3 (0.7-4.5); Lymphocytes % 20.6 % (10-50); Mean Corpuscular HGB Conc 32.2 g/dL (31.8-35.4); Mean Corpuscular Hemoglobin 31.7 pg (27.0-31.2); Mean Corpuscular Volume 98.3 fl (81-99); Mean Platelet Volume 8.1 fl (7.4-10.4); Monocytes # 0.3 K/mm3 (0.1-1.0); Monocytes % 5.6 % (1.7-9.3); Neutrophils % 71.7 % (37.0-80.0); Platelet Count 165 K/mm3 (142-424); Red Blood Count 2.78 M/mm3 (4.20-5.40); Red Cell Distribution Width 16.9 % (11.5-17.5); White Blood Count 5.6 K/mm3 (4.8-10.8)
== END 2024-03-15 23:59 | disposition home or self-care (01) ==
LOC: LAB.DROPOF 12:20
PROVIDERS: PCP Family Medicine; Visit Provider Family Medicine
DX: E11.65 Type 2 diabetes mellitus with hyperglycemia (principal); Z79.84 Long term (current) use of oral hypoglycemic drugs
CPT/HCPCS: 85025

== ENCOUNTER 2024-03-29 13:53 | Outpatient (CLI) | payer MEDICARE, SELFPAY | END 2024-03-29 23:59 | disposition home or self-care (01) | LOC: LAB.DROPOF 13:55 | PROVIDERS: PCP Family Medicine; Visit Provider Family Medicine | DX: Z02.9 Encounter for administrative examinations, unspecified (principal) ==

== ENCOUNTER 2024-03-30 09:10 | Outpatient (CLI) | payer MEDICARE, SELFPAY | END 2024-03-30 23:59 | disposition home or self-care (01) | LOC: LAB.DROPOF 09:11 | PROVIDERS: PCP Family Medicine; Visit Provider Family Medicine | DX: E11.65 Type 2 diabetes mellitus with hyperglycemia (principal) ==

== ENCOUNTER 2024-04-05 15:14 | Outpatient (CLI) | payer MEDICARE, SELFPAY ==
[2024-04-05 15:34] LABS: Basophils % 0.6 % (0.1-2.0); Eosinophils % 0.9 % (0.1-12.0); Hematocrit 25.2 % (37.0-47.0); Hemoglobin 8.6 g/dL (12.2-16.2); Lymphocytes # 1.2 K/mm3 (0.7-4.5); Mean Corpuscular HGB Conc 33.9 g/dL (31.8-35.4); Mean Corpuscular Hemoglobin 33.1 pg (27.0-31.2); Mean Corpuscular Volume 97.5 fl (81-99); Mean Platelet Volume 7.8 fl (7.4-10.4); Monocytes # 0.3 K/mm3 (0.1-1.0); Neutrophils # 2.9 K/mm3 (1.8-7.8); Neutrophils % 64.4 % (37.0-80.0); Platelet Count 169 K/mm3 (142-424); Red Blood Count 2.59 M/mm3 (4.20-5.40); Red Cell Distribution Width 16.1 % (11.5-17.5); White Blood Count 4.4 K/mm3 (4.8-10.8)
== END 2024-04-05 23:59 | disposition home or self-care (01) ==
LOC: LAB.DROPOF 15:16
PROVIDERS: PCP Family Medicine; Visit Provider Family Medicine
DX: N18.4 Chronic kidney disease, stage 4 (severe) (principal); D64.9 Anemia, unspecified
CPT/HCPCS: 85025

== ENCOUNTER 2024-04-11 10:38 | Outpatient (CLI) | payer MEDICARE, SELFPAY ==
[2024-04-11 11:25] LABS: Anion Gap 15.4 mEq/L (5-15); Blood Urea Nitrogen 47 mg/dl (7-17); Calcium 11.6 mg/dl (8.4-10.2); Carbon Dioxide 27 mmol/L (22.0-30.0); Chloride 103 mmol/L (98-107); Estimated Glomerular Filt Rate 24 ml/min (>60); GFR (African American) 29 ML/MIN (>60); Glucose 119 mg/dl (74-100); Potassium 4.4 mmoL/L (3.5-5.1); Sodium 141 mmol/L (136-145)
== END 2024-04-11 23:59 | disposition home or self-care (01) ==
LOC: LAB.DROPOF 10:39
PROVIDERS: PCP Family Medicine; Visit Provider Family Medicine
DX: N18.4 Chronic kidney disease, stage 4 (severe) (principal); I12.9 Hypertensive chronic kidney disease with stage 1 through stage 4 chronic kidney disease, or unspecified chronic kidney disease
CPT/HCPCS: 80048

== ENCOUNTER 2024-04-19 10:15 | Outpatient (CLI) | payer MEDICARE, SELFPAY ==
[2024-04-19 10:43] LABS: Basophils % 0.5 % (0.1-2.0); Eosinophils % 0.5 % (0.1-12.0); Hematocrit 28.7 % (37.0-47.0); Hemoglobin 9.2 g/dL (12.2-16.2); Lymphocytes # 1.3 K/mm3 (0.7-4.5); Lymphocytes % 20.6 % (10-50); Mean Corpuscular HGB Conc 31.9 g/dL (31.8-35.4); Mean Corpuscular Hemoglobin 31.5 pg (27.0-31.2); Mean Corpuscular Volume 98.7 fl (81-99); Mean Platelet Volume 7.6 fl (7.4-10.4); Monocytes # 0.3 K/mm3 (0.1-1.0); Monocytes % 4.6 % (1.7-9.3); Neutrophils # 4.8 K/mm3 (1.8-7.8); Neutrophils % 73.7 % (37.0-80.0); Platelet Count 214 K/mm3 (142-424); Red Blood Count 2.91 M/mm3 (4.20-5.40); Red Cell Distribution Width 15.7 % (11.5-17.5); White Blood Count 6.5 K/mm3 (4.8-10.8)
== END 2024-04-19 23:59 | disposition home or self-care (01) ==
LOC: LAB.DROPOF 10:16
PROVIDERS: PCP Family Medicine; Visit Provider Family Medicine
DX: E11.65 Type 2 diabetes mellitus with hyperglycemia (principal)
CPT/HCPCS: 85025

== ENCOUNTER 2024-05-03 10:40 | Outpatient (CLI) | payer MEDICARE, SELFPAY ==
[2024-05-03 11:09] LABS: Basophils % 0.5 % (0.1-2.0); Eosinophils % 0.5 % (0.1-12.0); Hematocrit 23.4 % (37.0-47.0); Hemoglobin 7.7 g/dL (12.2-16.2); Lymphocytes # 1.1 K/mm3 (0.7-4.5); Lymphocytes % 24.7 % (10-50); Mean Corpuscular HGB Conc 32.9 g/dL (31.8-35.4); Mean Corpuscular Hemoglobin 32.7 pg (27.0-31.2); Mean Corpuscular Volume 99.2 fl (81-99); Mean Platelet Volume 7.8 fl (7.4-10.4); Monocytes # 0.3 K/mm3 (0.1-1.0); Monocytes % 6.9 % (1.7-9.3); Neutrophils % 67.4 % (37.0-80.0); Platelet Count 178 K/mm3 (142-424); Red Blood Count 2.36 M/mm3 (4.20-5.40); Red Cell Distribution Width 15.6 % (11.5-17.5); White Blood Count 4.5 K/mm3 (4.8-10.8)
== END 2024-05-03 23:59 | disposition home or self-care (01) ==
LOC: LAB.DROPOF 10:41
PROVIDERS: PCP Family Medicine; Visit Provider Family Medicine
DX: E11.9 Type 2 diabetes mellitus without complications (principal); R79.89 Other specified abnormal findings of blood chemistry
CPT/HCPCS: 85025

== ENCOUNTER 2024-06-02 09:19 | Outpatient (CLI) | payer MEDICARE, SELFPAY ==
--- NOTE | 2024-06-02 12:14 | ECG_ITS ---
APPROVED REPORT Exam: Resting ECG HR:98 bpm ECG Measurements Heart Rate 98 AXES MO 244 P 72 QRSd 95 QRS 45 QT 356 T 0 QTc 412 Conclusion SINUS RHYTHM WITH FIRST DEGREE AV BLOCK NONSPECIFIC ST & T-WAVE ABNORMALITY ABNORMAL ECG UNCONFIRMED REPORT Electronically signed by : Vamshi Cherry MD 06/03/2024 09:18:14
== END 2024-06-02 23:59 | disposition home or self-care (01) ==
LOC: LAB.DROPOF 09:21
PROVIDERS: PCP Family Medicine; Visit Provider Family Medicine
DX: N17.9 Acute kidney failure, unspecified (principal); E83.52 Hypercalcemia; R94.31 Abnormal electrocardiogram [ECG] [EKG]
CPT/HCPCS: 82310; 93005

== ENCOUNTER 2024-06-02 12:15 | Emergency (ER) | payer MEDICARE, SELFPAY ==
[2024-06-02 12:15] VITALS: BP 115/59; PULSE 52; RESP 13; TEMP 36.6; O2SAT 100; BMI 19.7
--- NOTE | 2024-06-02 12:17 | HMH.EDGENADL ---
Discharge Plan Disposition Patient Disposition: Xfer Short-Term Hosp Condition: Serious Prescriptions Prescriptions: No Action Humulin 70/30 U-100 KwikPen 100 unit/mL (70-30) insulin pen 10 unit SQ QAM Procrit 4,000 unit/mL solution 4,000 unit [id number] .[id number] acetaminophen 500 mg tablet 1,000 mg PO BID Qty: 120 11RF pravastatin 20 mg tablet 20 mg PO DAILY Qty: 90 3RF saxagliptin 2.5 mg tablet 2.5 mg PO DAILY Qty: 90 3RF aspirin 81 MG tablet,delayed release (DR/EC) 81 mg PO DAILY amlodipine 10 mg Tablet 10 mg PO DAILY ferrous sulfate 325 mg (65 mg iron) Tablet 325 mg PO BID multivitamin with minerals Tablet 1 tab PO DAILY docusate sodium 100 mg Capsule 100 mg PO DAILY PRN (Reason: constipation) 30 Days Qty: 30 0RF sodium bicarbonate 650 mg Tablet 650 mg PO TID 30 Days Qty: 90 0RF Referrals Follow up/Referrals: Katia Aparicio APRN [Primary Care Provider] - See instructions Activity Restrictions/Add. Instructions Additional Instructions/Restrictions: [facility] emergency department care Dr. Luong Clinical Impressions Clinical Impression: Hypercalcemia Acute on chronic renal failure Qualifiers: Chronic kidney disease stage: stage 4 (GFR 15-29) Stand Alone Forms Stand Alone Forms: Transfer Record - ED Print Language Print Language: Anguillan Discharge ED Provider: Obed Van General Adult HPI <RACHEL Bradley - Last Filed: 06/02/24 14:50> General Chief complaint: Recheck/Abnormal Lab/Rx Stated complaint: Abnormal Labs Time Seen by Provider: 06/02/24 12:17 History of Present Illness HPI narrative: Patient presents from alf from abnormal labs. Patient himself has no insight as to why she is here. She reports bone pain especially her knees but denies any chest pain shortness of breath fever chills hemoptysis hematochezia melena nausea vomit diarrhea. In review of her chart she had an isolated calcium ordered today. Patient does have known stage IV kidney disease and is followed by nephrology at the [facility]. She is not on dialysis currently. Related Data Home Medications ?Medication ?Instructions ?Recorded ?Confirmed aspirin 81 mg tablet,delayed 81 mg PO DAILY 06/22/19 04/26/24 release amlodipine 10 mg tablet 10 mg PO DAILY 03/10/24 04/26/24 ferrous sulfate 325 mg (65 mg 325 mg PO BID 03/10/24 04/26/24 iron) tablet multivitamin with minerals 1 tab PO DAILY 03/10/24 04/26/24 epoetin jon 4,000 unit/mL 4,000 unit SQ .[id number] 04/26/24 04/26/24 injection solution (Procrit) insulin NPH-regular 70-30 U-100 10 unit SQ QAM 04/26/24 04/26/24 insulin 100 unit/mL subcutaneous pen (Humulin 70/30 U-100 KwikPen) Previous Rx's ?Medication ?Instructions ?Recorded acetaminophen 500 mg tablet 1,000 mg (2 x 500 mg) PO BID #120 01/05/24 tabs pravastatin 20 mg tablet 20 mg PO DAILY #90 tabs 01/05/24 saxagliptin 2.5 mg tablet 2.5 mg PO DAILY #90 tabs 01/26/24 docusate sodium 100 mg capsule 100 mg PO DAILY PRN constipation 03/11/24 30 days #30 caps sodium bicarbonate 650 mg tablet 650 mg PO TID 30 days #90 tabs 03/11/24 Allergies Allergy/AdvReac Type Severity Reaction Status Date / Time No Known Allergies Allergy Verified 04/26/24 11:27 [facility] <RACHEL Bradley - Last Filed: 06/02/24 14:50> [facility] Disclaimer: The information contained in this section may have been updated after the patient was seen, as this information can be updated by other users. Medical History CKD (chronic kidney disease) Iron deficiency anemia Normal colonoscopy January 2024 Thyroid cyst CULLEN (acute kidney injury) Generalized weakness Effusion, right shoulder Knee pain Hyperlipidemia Diabetes mellitus Dental decay Hypertension GERD without esophagitis Concussion Contusion of scalp Forehead laceration Nose fracture Acute UTI Contusion of nose, initial encounter Elevated troponin Uremia Social History Smoking Status: Never smoker alcohol intake: never current occupational status: retired Travel in the last 8 weeks: None housing: house marital status: single current occupational exposures/hazards: No caffeine: Yes Have you lived/traveled outside [place] in past 30 days?: No Contact w/someone who lives/traveled outside US past 30 days?: No Exposure to someone with infectious disease in past 14 days?: No Do you have a fever (greater than 100.4 F or 38 C)?: No Have you tested positive for COVID-19: No Exposed to someone with COVID-19 in past 14 days?: No Do you have a sore throat?: No Do you have a cough?: No Do you have any weakness?: No Do you have any diarrhea?: No Are you experiencing any unusual bleeding?: No Do you have any muscle aches/pain?: No Do you have any abdominal pain?: No Are you experiencing loss of taste or smell?: No Other Medical History Have you received the Flu Vaccine for this season: No Have you received the Pneumonia Vaccine: No (unknown) <RACHEL Bradley - Last Filed: 06/02/24 14:50> ROS Obtained: Yes Systems reviewed as appropriate & no additional complaints except as documented Physical Exam <RACHEL Bradley - Last Filed: 06/02/24 14:50> General General appearance: alert and in no apparent distress Respiratory Respiratory exam: Present normal lung sounds bilaterally Cardiovascular Cardiovascular exam: Present regular rate Extremities Exam Extremities exam: Present normal inspection and full ROM Neurological Exam Neurological exam: Present alert and oriented X3 Medical Decision Making <RACHEL Bradley - Last Filed: 06/02/24 14:50> Medical Records Medical records reviewed: Yes I reviewed the patient's medical records. Screening: Per USPSTF and CDC recommendations, given the prevalence of disease in our region, it is our hospital?s policy to screen for HIV and viral Hepatitis for all patients aged 18 and over and those with ongoing risk factors. Edin Inquiry Pt receiving controlled substance: No Vital Signs: 06/02/24 12:15 06/02/24 13:00 06/02/24 13:30 Temperature 97.9 F Temperature Source Oral Pulse Rate 89 92 H Pulse Rate [Left Radial] 52 L Respiratory Rate 13 Blood Pressure 105/61 L 117/73 Blood Pressure [Right Arm] 115/59 L Blood Pressure Mean [Right Arm] 77 02 Sat by Pulse Oximetry 100 100 100 Oxygen Delivery Method Room Air Room Air Room Air 06/02/24 14:00 06/02/24 14:28 06/02/24 14:56 Temperature 97.9 F Temperature Source Pulse Rate 102 H 105 H 105 H Pulse Rate [Left Radial] Respiratory Rate 13 Blood Pressure 141/80 H 148/75 H 148/75 H Blood Pressure [Right Arm] Blood Pressure Mean [Right Arm] 02 Sat by Pulse Oximetry 97 93 L Oxygen Delivery Method Room Air Lab Data Lab results reviewed: Yes I reviewed the patient's lab results. Lab Results 06/02/24 12:24: WBC 5.9, RBC 2.82 L, Hgb 8.9 L, Hct 27.8 L, MCV 98.6, MCH 31.6 H, MCHC 32.0, RDW 13.7, Plt Count 177, MPV 10.2, Neut % (Auto) 74.2, Lymph % (Auto) 18.0, [place] % (Auto) 6.3, Eos % (Auto) 0.5, Baso % (Auto) 0.5, Neut # (Auto) 4.4, Lymph # (Auto) 1.1, [place] # (Auto) 0.4, Eos # (Auto) 0.0, Baso # (Auto) 0.0, Sodium 134 L, Potassium 5.0, Chloride 97 L, Carbon Dioxide 28, Anion Gap 14.0, BUN 65 H, Creatinine 2.90 H, Estimated Creat Clear 12, Estimated GFR 15 L*, Est GFR ( Amer) 19 L*, Glucose 95, Calcium 13.3 H*, Phosphorus 6.0 H, Magnesium 2.3, Total Bilirubin 0.5, AST 31, ALT 14, Alkaline Phosphatase 72, Total Protein 7.3, Albumin 3.2 L, Globulin 4.1 H, Albumin/Globulin Ratio 0.8 L, Acetone Level None detected, HCV Ab LIZETH w/Rflx PCR Qn Negative, HIV Ag/Ab Combo Qual Negative 06/02/24 13:00: SARS-CoV-2 (PCR) Not detected, Influenza A Untype (PCR) Not detected, Influenza Type B (PCR) Not detected 06/02/24 14:41: Urine Color Yellow, Urine Appearance Clear, Urine pH 7.5, Ur Specific [place] 1.020, Urine Protein 2+ A, Urine Glucose (UA) Negative, Urine Ketones Negative, Urine Blood 1+ A, Urine Nitrate Negative, Urine Bilirubin Negative, Urine Urobilinogen 0.2, Ur Leukocyte Esterase 3+ A, Urine RBC 3-5, Urine WBC Tntc, Ur Squamous Epith Cells 5-10, Urine Bacteria 3+, Urine Mucus 2+ 06/02/24 12:24 06/02/24 12:24 Orders (Tests/Meds): ED MEDICATIONS Discontinued Medications Generic Name Dose Route Start Last Admin Trade Name Freq PRN Reason Stop Dose Admin Calcitonin Perry 200 unit 06/02/24 13:15 06/02/24 13:50 Calcitonin 200iu/Ml Inj Vial 4 unit/kg (200 unit) 07/02/24 13:14 200 unit SUBCUT Administration Q12H CECELIA Lactated Ringer's 1,640 mls @ 820 mls/hr 06/02/24 12:43 06/02/24 12:59 Lactated Ringer's 1000 Ml Bag 30 ml/kg infuse over 2 hr (1640 ml) 06/02/24 14:42 820 mls/hr IV Administration .Q2H ONE ORDERS Category Date Time Status POCUS Point of Care (ER Only) Stat Exams 06/02/24 13:08 Completed Acetone, Serum (Rapid) Stat Lab 06/02/24 12:24 Completed CBC w/Auto Diff [Complete Blood Count Auto Diff] Stat Lab 06/02/24 12:24 Completed CMP [Comprehensive Metabolic Panel] Stat Lab 06/02/24 12:24 Completed HIV Combo Stat Lab 06/02/24 12:24 Completed Hepatitis C Ab Qual. W/ RFX Stat Lab 06/02/24 12:24 Completed Magnesium Stat Lab 06/02/24 12:24 Completed Phosphorous Stat Lab 06/02/24 12:24 Completed Rapid PCR Covid and Flu A/B Stat Lab 06/02/24 13:00 Completed UA [Urinalysis and Microscopic] Stat Lab 06/02/24 14:41 Completed Urine Culture Stat Micro 06/02/24 14:41 Received Medical Decision Narrative: In summary patient is a 84-year-old female who presents to the emergency department for evaluation of hypercalcemia. Patient is on arrival with a blood pressure of 115/59 heart rate 52 respiratory rate is 13 O2 sats of 100% on room air temperature is 97.9 upon arrival. Physical exam is remarkable for a very pleasant well-nourished well-developed 84-year-old female who does not appear to be acute distress. Patient has severe dental caries however no evidence of of abscess currently. She has normal breath sounds normal heart sounds no abdominal tenderness. Patient reports bilateral knee pain however there is no evidence of cellulitis or swelling. Patient is neurovascularly intact in all 4 extremities and has no focal neurologic deficits. Patient appears to be in normal sinus rhythm on the bedside monitor. Differential diagnosis includes acute on chronic renal failure, secondary hyperparathyroidism due to renal disease versus therapeutic misadventure with too much calcium vitamin D intake etc versus cardiac arrhythmia.,. Initial workup will be conducted with hematologic labs POCUS. Initial interventions include pending initial lab workup. Initial workup reviewed by ms white count 5.9 hemoglobin hematocrit 8.9 and 27.8 respectively sodium 134 potassium of 5 chloride of 97 CO2 of 28 gap of 14 GFR is 15 creatinine is 2.9 BUN 65 however her calcium is confirmed to be 13.3 with a phosphorus of 6.0 magnesium of 2.3 and albumin of 3.2 giving a corrected calcium of 13.9 and a respiratory panel is negative for COVID flu RSV and rhinovirus. Upon repeat evaluation I have initiated calcium lowering strategy including gentle fluid bolus of 30 mg/kg, POCUS reveals that she is dry and not in volume overload, I have ordered calcitonin at 4 mg/kg subcutaneously. Twelve-lead EKG does not show any evidence of cardiac arrhythmia. Given this I had interactive discussion with [facility] transfer center and nephrology about results findings and patient management, she has been graciously accepted to the [facility] emergency department care of Dr. Luong for further evaluation and care. <Obed Van MD - Last Filed: 06/02/24 16:04> Vital Signs: 06/02/24 12:15 06/02/24 13:00 06/02/24 13:30 Temperature 97.9 F Temperature Source Oral Pulse Rate 89 92 H Pulse Rate [Left Radial] 52 L Respiratory Rate 13 Blood Pressure 105/61 L 117/73 Blood Pressure [Right Arm] 115/59 L Blood Pressure Mean [Right Arm] 77 02 Sat by Pulse Oximetry 100 100 100 Oxygen Delivery Method Room Air Room Air Room Air 06/02/24 14:00 06/02/24 14:28 06/02/24 14:56 Temperature 97.9 F Temperature Source Pulse Rate 102 H 105 H 105 H Pulse Rate [Left Radial] Respiratory Rate 13 Blood Pressure 141/80 H 148/75 H 148/75 H Blood Pressure [Right Arm] Blood Pressure Mean [Right Arm] 02 Sat by Pulse Oximetry 97 93 L Oxygen Delivery Method Room Air Lab Data Lab Results 06/02/24 12:24: WBC 5.9, RBC 2.82 L, Hgb 8.9 L, Hct 27.8 L, MCV 98.6, MCH 31.6 H, MCHC 32.0, RDW 13.7, Plt Count 177, MPV 10.2, Neut % (Auto) 74.2, Lymph % (Auto) 18.0, [place] % (Auto) 6.3, Eos % (Auto) 0.5, Baso % (Auto) 0.5, Neut # (Auto) 4.4, Lymph # (Auto) 1.1, [place] # (Auto) 0.4, Eos # (Auto) 0.0, Baso # (Auto) 0.0, Sodium 134 L, Potassium 5.0, Chloride 97 L, Carbon Dioxide 28, Anion Gap 14.0, BUN 65 H, Creatinine 2.90 H, Estimated Creat Clear 12, Estimated GFR 15 L*, Est GFR ( Amer) 19 L*, Glucose 95, Calcium 13.3 H*, Phosphorus 6.0 H, Magnesium 2.3, Total Bilirubin 0.5, AST 31, ALT 14, Alkaline Phosphatase 72, Total Protein 7.3, Albumin 3.2 L, Globulin 4.1 H, Albumin/Globulin Ratio 0.8 L, Acetone Level None detected, HCV Ab LIZETH w/Rflx PCR Qn Negative, HIV Ag/Ab Combo Qual Negative 06/02/24 13:00: SARS-CoV-2 (PCR) Not detected, Influenza A Untype (PCR) Not detected, Influenza Type B (PCR) Not detected 06/02/24 14:41: Urine Color Yellow, Urine Appearance Clear, Urine pH 7.5, Ur Specific [place] 1.020, Urine Protein 2+ A, Urine Glucose (UA) Negative, Urine Ketones Negative, Urine Blood 1+ A, Urine Nitrate Negative, Urine Bilirubin Negative, Urine Urobilinogen 0.2, Ur Leukocyte Esterase 3+ A, Urine RBC 3-5, Urine WBC Tntc, Ur Squamous Epith Cells 5-10, Urine Bacteria 3+, Urine Mucus 2+ Orders (Tests/Meds): ED MEDICATIONS Discontinued Medications Generic Name Dose Route Start Last Admin Trade Name Luciana PRN Reason Stop Dose Admin Calcitonin Perry 200 unit 06/02/24 13:15 06/02/24 13:50 Calcitonin 200iu/Ml Inj Vial 4 unit/kg (200 unit) 07/02/24 13:14 200 unit SUBCUT Administration Q12H [facility] Lactated Ringer's 1,640 mls @ 820 mls/hr 06/02/24 12:43 06/02/24 12:59 Lactated Ringer's 1000 Ml Bag 30 ml/kg infuse over 2 hr (1640 ml) 06/02/24 14:42 820 mls/hr IV Administration .Q2H ONE ORDERS Category Date Time Status POCUS Point of Care (ER Only) Stat Exams 06/02/24 13:08 Completed Acetone, Serum (Rapid) Stat Lab 06/02/24 12:24 Completed CBC w/Auto Diff [Complete Blood Count Auto Diff] Stat Lab 06/02/24 12:24 Completed CMP [Comprehensive Metabolic Panel] Stat Lab 06/02/24 12:24 Completed HIV Combo Stat Lab 06/02/24 12:24 Completed Hepatitis C Ab Qual. W/ RFX Stat Lab 06/02/24 12:24 Completed Magnesium Stat Lab 06/02/24 12:24 Completed Phosphorous Stat Lab 06/02/24 12:24 Completed Rapid PCR Covid and Flu A/B Stat Lab 06/02/24 13:00 Completed UA [Urinalysis and Microscopic] Stat Lab 06/02/24 14:41 Completed Urine Culture Stat Micro 06/02/24 14:41 Received Medical Decision Narrative: In summary patient is a 84-year-old female who presents to the emergency department for evaluation of hypercalcemia. Patient is on arrival with a blood pressure of 115/59 heart rate 52 respiratory rate is 13 O2 sats of 100% on room air temperature is 97.9 upon arrival. Physical exam is remarkable for a very pleasant well-nourished well-developed 84-year-old female who does not appear to be acute distress. Patient has severe dental caries however no evidence of of abscess currently. She has normal breath sounds normal heart sounds no abdominal tenderness. Patient reports bilateral knee pain however there is no evidence of cellulitis or swelling. Patient is neurovascularly intact in all 4 extremities and has no focal neurologic deficits. Patient appears to be in normal sinus rhythm on the bedside monitor. Differential diagnosis includes acute on chronic renal failure, secondary hyperparathyroidism due to renal disease versus therapeutic misadventure with too much calcium vitamin D intake etc versus cardiac arrhythmia.,. Initial workup will be conducted with hematologic labs POCUS. Initial interventions include pending initial lab workup. Initial workup reviewed by me white count 5.9 hemoglobin hematocrit 8.9 and 27.8 respectively sodium 134 potassium of 5 chloride of 97 CO2 of 28 gap of 14 GFR is 15 creatinine is 2.9 BUN 65 however her calcium is confirmed to be 13.3 with a phosphorus of 6.0 magnesium of 2.3 and albumin of 3.2 giving a corrected calcium of 13.9 and a respiratory panel is negative for COVID flu RSV and rhinovirus. Upon repeat evaluation I have initiated calcium lowering strategy including gentle fluid bolus of 30 mg/kg, POCUS reveals that she is dry and not in volume overload, I have ordered calcitonin at 4 mg/kg subcutaneously. Twelve-lead EKG does not show any evidence of cardiac arrhythmia. Given this I had interactive discussion with [facility] and nephrology about results findings and patient management, she has been graciously accepted to the [facility] emergency department care of Dr. Luong for further evaluation and care. LORNA attestation I was consulted by the LORNA, and we discussed the complexity of problems being addressed. I approved the treatment and management plan for this patient's care in the emergency department, thus performing a substantial portion of the medical decision making. Obed Van MD Critical Care <RACHEL Bradley - Last Filed: 06/02/24 14:50> Critical Care Time Critical Care Time: Yes Attestation: On 06/02/24, the high probability of a clinically significant, sudden or life threatening deterioration of the following system: Cardiac, renal, endocrine, pulmonary; required my full and direct attention, intervention and personal management. The time I documented below is in addition to time spent performing reported procedures but includes the following listed in this critical care notation. Total Time Total Critical Care Time: 45
[2024-06-02 12:56] LABS: Basophils % 0.5 % (0.1-2.0); Eosinophils % 0.5 % (0.1-12.0); Hematocrit 27.8 % (37.0-47.0); Hemoglobin 8.9 g/dL (12.2-16.2); Lymphocytes # 1.1 K/mm3 (0.7-4.5); Mean Corpuscular Hemoglobin 31.6 pg (27.0-31.2); Mean Corpuscular Volume 98.6 fl (81-99); Mean Platelet Volume 10.2 fl (7.4-10.4); Monocytes # 0.4 K/mm3 (0.1-1.0); Monocytes % 6.3 % (1.7-9.3); Neutrophils # 4.4 K/mm3 (1.8-7.8); Neutrophils % 74.2 % (37.0-80.0); Platelet Count 177 K/mm3 (142-424); Red Blood Count 2.82 M/mm3 (4.20-5.40); Red Cell Distribution Width 13.7 % (11.5-17.5); White Blood Count 5.9 K/mm3 (4.8-10.8)
[2024-06-02 12:57] LABS: Albumin Level 3.2 g/dl (3.5-5.0); Chloride 97 mmol/L (98-107); Sodium 134 mmol/L (136-145)
[2024-06-02 12:59] LABS: Blood Urea Nitrogen 65 mg/dl (7-17); Creatinine Clearance Estimated 12 mL/min (50-200); Estimated Glomerular Filt Rate 15 ml/min (>60); GFR (African American) 19 ML/MIN (>60)
[2024-06-02] MEDS: LACTATED RINGERS 1000ML 1,640 ML 820 ML IV (12:59)
[2024-06-02 13:00] VITALS: BP 105/61; PULSE 89; O2SAT 100
[2024-06-02 13:00] LABS: Alanine Aminotransferase 14 U/L (12-78); Albumin/Globulin Ratio 0.8 (1.1-1.8); Alkaline Phosphatase 72 U/L (38-126); Aspartate Amino Transferase 31 U/L (14-36); Bilirubin,Total 0.5 mg/dl (0.2-1.3); Carbon Dioxide 28 mmol/L (22.0-30.0); Globulin 4.1 g/dL (1.3-3.2); Glucose 95 mg/dl (74-100); Total Protein,Serum 7.3 g/dl (6.3-8.2)
[2024-06-02 13:01] LABS: Magnesium 2.3 mg/dl (1.6-2.3)
[2024-06-02 13:02] LABS: Calcium 13.3 mg/dl (8.4-10.2)
[2024-06-02 13:05] LABS: Coronavirus 19, PCR Not Detected (NotDetected); Influenza A, PCR Not Detected (NotDetected); Influenza B, PCR Not Detected (NotDetected)
--- NOTE | 2024-06-02 13:17 | PC.NURSE ---
Called [facility] per RACHEL Tracey for poss transfer, Darin is currently on the phone with at this time.
[2024-06-02 13:24] LABS: Acetone, Serum (Rapid) None Detected (None Detect)
[2024-06-02 13:30] VITALS: BP 117/73; PULSE 92; O2SAT 100
[2024-06-02 13:33] LABS: HIV Combo NEGATIVE (Negative)
[2024-06-02 13:37] LABS: Hepatitis C Ab Qual. W/ RFX NEGATIVE (Negative)
--- NOTE | 2024-06-02 13:45 | PC.NURSE ---
pt still has not voided at this time
[2024-06-02] MEDS: CALCITONIN 200IU/ML INJ VIAL 200 UNIT SUBCUT (13:50)
[2024-06-02 14:00] VITALS: BP 141/80; PULSE 102; O2SAT 97
--- NOTE | 2024-06-02 14:09 | PC.NURSE ---
Kyung RAMOS speaking with [employer] at this time.
--- NOTE | 2024-06-02 14:23 | PC.NURSE ---
FAMILY, OLEKSANDR NOTIFIED THAT PT WILL BE TRANSFERRED TO [facility]
[2024-06-02 14:28] VITALS: BP 148/75; PULSE 105; O2SAT 93
[2024-06-02 14:43] LABS: Microscopic, Urine URINE MICROSCOPIC (MICROSCOPIC)
[2024-06-02 14:47] LABS: Appearance,Urine CLEAR (Clear); Bilirubin,Urine Negative (Negative); Blood, Urine 1+ (Negative); Color,Urine YELLOW (Yellow); Glucose,Urine (UA) Negative (Negative); Ketones,Urine Negative (Negative); Leukocyte Esterase,Urine 3+ (Negative); Nitrate,Urine Negative (Negative); PH,Urine 7.5 (5.0-8.5); Protein,Urine 2+ (Negative); Urobilinogen,Urine 0.2 EU/dl (0.2)
[2024-06-02 14:56] VITALS: BP 148/75; PULSE 105; RESP 13; TEMP 36.6
[2024-06-02 15:39] LABS: WBC,Urine TNTC #/hpf (0-3)
[2024-06-02 15:40] LABS: Bacteria,Urine 3+ /lpf; Mucus,Urine 2+ /lpf
--- NOTE | 2024-06-05 08:08 | PC.NURSE ---
faxed urine cultures to [facility] where pt was transferred, [phone]
== END 2024-06-02 14:57 | disposition short-term general hospital (02) ==
PROVIDERS: Physician Assistant; Emergency Provider Student in an Organized Health Care Education/Training Program; PCP Nurse Practitioner Family
DX: E83.52 Hypercalcemia (principal); N18.4 Chronic kidney disease, stage 4 (severe); R79.9 Abnormal finding of blood chemistry, unspecified; M25.561 Pain in right knee; M25.562 Pain in left knee; K02.9 Dental caries, unspecified
CPT/HCPCS: 80053; 81001; 82009; 83735; 84100; 85025; 86803; 87086; 87088; 87186; 87389; 87636; 96360; 96361; 96372; 99291; J0630; J7120

== ENCOUNTER 2024-06-22 19:13 | Emergency (ER) | payer OTHER, SELFPAY ==
[2024-06-22] VITALS (10 sets, daily range): BP systolic 00–133; BP diastolic 00–94; PULSE 0–93; RESP 0–28; TEMP 36.6–36.7; O2SAT 94–100; BMI 26.6
--- NOTE | 2024-06-22 19:20 | ECG_ITS ---
APPROVED REPORT Exam: Resting ECG HR:83 bpm ECG Measurements Heart Rate 83 AXES ND 191 P 65 QRSd 86 QRS 43 QT 375 T 81 QTc 415 Conclusion Sinus rhythm PACs Electronically signed by : JEAN MARIE JACKSON, 06/22/2024 22:49:50
--- NOTE | 2024-06-22 19:30 | ED_ITS ---
Discharge Plan Disposition Patient Disposition: Home, Self-Care Prescriptions Prescriptions: New Lokelma 10 gram powder in packet 10 g PO DAILY Qty: 30 1RF No Action acetaminophen 500 mg tablet 500 mg PO BID docusate sodium 100 mg capsule 100 mg PO BID PRN (Reason: constipation) metoprolol succinate 25 mg tablet extended release 24 hr 25 mg PO DAILY hyoscyamine sulfate [Levsin] 0.125 mg tablet 0.125 mg PO BID PRN (Reason: Secretions) oxycodone 5 mg tablet 5 mg PO Q6H PRN (Reason: Analgesia) lorazepam 0.5 mg tablet 0.5 mg PO TID PRN (Reason: Anxiety) oseltamivir [Tamiflu] 30 mg capsule 30 mg PO Q OTHER DAY ipratropium-albuterol 0.5 mg-3 mg(2.5 mg base)/3 mL solution for nebulization 3 ml inhalation Q4H PRN (Reason: COPD) Referrals Follow up/Referrals: Provider,Referral, MD [Primary Care Provider] - See instructions Activity Restrictions/Add. Instructions Additional Instructions/Restrictions: Call your family doctor to establish care for this visit to the emergency department and schedule follow-up within 48 hours to ensure improvement. If you have any worsening of your condition or any other concerning signs or symptoms, return to the emergency department or your primary care doctor for further evaluation. Lokelma daily. Be sure to stay plenty hydrated. Clinical Impressions Clinical Impression: CULLEN (acute kidney injury), Acute hyperkalemia Print Language Print Language: [place] Discharge ED Provider: Hwoard Benson General Adult HPI General Chief complaint: Recheck/Abnormal Lab/Rx Stated complaint: High potassium level Time Seen by Provider: 06/22/24 19:14 History of Present Illness HPI narrative: Please note that above description of symptoms, in this electronic medical record under categorization of recalled from ER triage doctor by RN are reflective of an initial nursing assessment, however, is not reflective of my full history and physical exam that was personally taken and clarified. Consequentially, this preceding description of symptoms, which may include the patient's categorized chief complaint in the EMR, do not reflect my personal clinical impression, and the ultimate description of history of present illness and patient stated complaints should be deferred to this section of the note. Unless stated otherwise or congruent with this section of the note, additional signs, symptoms, or incongruence should be interpreted as inaccurate with my clinical impression. Related Data Home Medications ?Medication ?Instructions ?Recorded ?Confirmed acetaminophen 500 mg tablet 500 mg PO BID 06/18/24 06/22/24 docusate sodium 100 mg capsule 100 mg PO BID PRN constipation 06/18/24 06/22/24 hyoscyamine sulfate 0.125 mg 0.125 mg PO BID PRN Secretions 06/18/24 06/22/24 tablet (Levsin) ipratropium 0.5 mg-albuterol 3 mg 3 ml inhalation Q4H PRN COPD 06/18/24 06/22/24 (2.5 mg base)/3 mL nebulization soln lorazepam 0.5 mg tablet 0.5 mg PO TID PRN Anxiety 06/18/24 06/22/24 metoprolol succinate 25 mg 25 mg PO DAILY 06/18/24 06/22/24 tablet,extended release 24 hr oseltamivir 30 mg capsule (Tamiflu) 30 mg PO Q OTHER DAY 06/18/24 06/22/24 oxycodone 5 mg tablet 5 mg PO Q6H PRN Analgesia 06/18/24 06/22/24 Previous Rx's ?Medication ?Instructions ?Recorded sodium zirconium cyclosilicate 10 10 g PO DAILY #30 ea 06/22/24 gram oral powder packet (Lokelma) Allergies Allergy/AdvReac Type Severity Reaction Status Date / Time No Known Allergies Allergy Verified 06/18/24 14:19 [facility] Disclaimer: The information contained in this section may have been updated after the patient was seen, as this information can be updated by other users. Medical History (Updated 06/22/24 @ 22:04 by Howard Benson MD) UTI (urinary tract infection) CKD (chronic kidney disease) Iron deficiency anemia Normal colonoscopy Thyroid cyst CULLEN (acute kidney injury) Generalized weakness Effusion, right shoulder Knee pain Hyperlipidemia Diabetes mellitus Dental decay Hypertension GERD without esophagitis Concussion Contusion of scalp Forehead laceration Nose fracture Acute UTI Contusion of nose, initial encounter Elevated troponin Uremia Social History Smoking Status: Never smoker alcohol intake: never current occupational status: retired Travel in the last 8 weeks: None housing: house marital status: single current occupational exposures/hazards: No caffeine: Yes Have you lived/traveled outside [place] in past 30 days?: No Contact w/someone who lives/traveled outside [place] past 30 days?: No Exposure to someone with infectious disease in past 14 days?: No Do you have a fever (greater than 100.4 F or 38 C)?: No Have you tested positive for COVID-19: No Exposed to someone with COVID-19 in past 14 days?: No Do you have a sore throat?: No Do you have a cough?: No Do you have any weakness?: No Do you have any diarrhea?: No Are you experiencing any unusual bleeding?: No Do you have any muscle aches/pain?: No Do you have any abdominal pain?: No Are you experiencing loss of taste or smell?: No Other Medical History Have you received the Flu Vaccine for this season: No Have you received the Pneumonia Vaccine: No (unknown) ROS Obtained: Yes All systems reviewed & no additional complaints except as documented Physical Exam General General appearance: alert and other (Chronically ill, no acute abnormalities. No complaints) Head Head exam: atraumatic and normocephalic Eye Eye exam: Present normal appearance, PERRL and EOMI Neck Neck exam: Present normal inspection, full ROM and trachea midline Respiratory Respiratory exam: Present normal lung sounds bilaterally; Absent respiratory distress, wheezes, stridor, accessory muscle use or prolonged expiratory phase Cardiovascular Cardiovascular exam: Present regular rate, normal rhythm and other (Pulses equal symmetric in upper and lower extremities) Abdominal Exam Abdominal exam: Present soft; Absent distention, tenderness, guarding, rebound or pulsatile mass Extremities Exam Extremities exam: Absent edema Neurological Exam Neurological exam: Present alert, oriented X3 and CN II-XII intact; Absent motor sensory deficit Skin Skin exam: Present warm and dry; Absent diaphoresis or erythema Medical Decision Making Medical Records Medical records reviewed: Yes I reviewed the patient's medical records. Screening: Per USPSTF and CDC recommendations, given the prevalence of disease in our region, it is our hospital?s policy to screen for HIV and viral Hepatitis for all patients aged 18 and over and those with ongoing risk factors. [place] Inquiry Pt receiving controlled substance: No [place] was queried for this patient: No Vital Signs: 06/22/24 19:13 06/22/24 19:28 06/22/24 19:30 Temperature 97.9 F Temperature Source Oral Pulse Rate 81 83 Pulse Rate [Right] 86 Respiratory Rate 23 21 20 Blood Pressure 128/65 121/63 Blood Pressure [Right Arm] 121/63 Blood Pressure Mean 93 99 Blood Pressure Mean [Right Arm] 82 Blood Pressure Position [Right Arm] Supine 02 Sat by Pulse Oximetry 99 99 99 Oxygen Delivery Method Nasal Cannula Oxygen Flow Rate (LPM) 2 06/22/24 20:00 06/22/24 20:30 06/22/24 21:01 Temperature Temperature Source Pulse Rate 80 79 93 H Pulse Rate [Right] Respiratory Rate 19 21 22 Blood Pressure 115/76 111/55 L 124/68 Blood Pressure [Right Arm] Blood Pressure Mean Blood Pressure Mean [Right Arm] Blood Pressure Position [Right Arm] 02 Sat by Pulse Oximetry 100 98 94 L Oxygen Delivery Method Room Air Room Air Nasal Cannula Oxygen Flow Rate (LPM) 2 06/22/24 21:30 Temperature Temperature Source Pulse Rate 84 Pulse Rate [Right] Respiratory Rate 22 Blood Pressure 130/61 Blood Pressure [Right Arm] Blood Pressure Mean Blood Pressure Mean [Right Arm] Blood Pressure Position [Right Arm] 02 Sat by Pulse Oximetry 100 Oxygen Delivery Method Nasal Cannula Oxygen Flow Rate (LPM) 2 Lab Data Lab Results 06/22/24 19:20: WBC 7.2, RBC 2.64 L, Hgb 8.5 L, Hct 26.4 L, MCV 100.0 H, MCH 32.2 H, MCHC 32.2, RDW 14.6, Plt Count 174, MPV 9.6, Neut % (Auto) 73.9, Lymph % (Auto) 16.6, [place] % (Auto) 7.8, Eos % (Auto) 0.6, Baso % (Auto) 0.7, Neut # (Auto) 5.3, Lymph # (Auto) 1.2, [place] # (Auto) 0.6, Eos # (Auto) 0.0, Baso # (Auto) 0.1, VBG pH 7.29 L, VBG pCO2 34.7 L, VBG pO2 59.6 H, VBG HCO3 16.5 L, VBG Total CO2 17.5 L, VBG O2 Saturation 87.6 H, VBG Base Excess -10.1 L, VBG Lactic Acid 0.9, Sodium 135 L, Potassium 6.0 H, Chloride 102, Carbon Dioxide 19 L, [place] 20.0 H, BUN 72 H, Creatinine 4.00 H, Estimated Creat Clear 12, E stimated GFR 11 L*, Est GFR ( Amer) 13 L*, Glucose 74, Calcium 7.6 L, Magnesium 2.2, Total Bilirubin 0.4, AST 23, ALT 11 L, Alkaline Phosphatase 78, Total Protein 6.7, Albumin 3.0 L, Globulin 3.7 H, Albumin/Globulin Ratio 0.8 L 06/22/24 19:20 06/22/24 19:20 Orders (Tests/Meds): ED MEDICATIONS Discontinued Medications Generic Name Dose Route Start Last Admin Trade Name Freq PRN Reason Stop Dose Admin Furosemide 40 mg 06/22/24 20:03 06/22/24 20:08 Furosemide 40mg/4ml Vial IV 06/22/24 20:04 40 mg ONCE ONE Administration Lactated Ringer's 1,000 mls @ 999 mls/hr 06/22/24 19:24 06/22/24 19:48 Lactated Ringer's 1000 Ml Bag IV 06/22/24 20:24 999 mls/hr .Q1H1M ONE Administration Lactated Ringer's 1,000 mls @ 999 mls/hr 06/22/24 20:10 06/22/24 20:12 Lactated Ringer's 1000 Ml Bag IV 06/22/24 21:10 999 mls/hr .Q1H1M ONE Administration Oxycodone HCl 5 mg 06/22/24 21:30 06/22/24 21:30 Oxycodone 5mg Immediate Release Tablet PO 06/22/24 21:31 5 mg ONCE ONE Administration Sodium Zirconium Cyclosilicate 10 gm 06/22/24 19:24 06/22/24 19:48 Lokelma 5gm Packet PO 06/22/24 19:25 10 gm ONCE ONE Administration ORDERS Category Date Time Status CBC w/Auto Diff [Complete Blood Count Auto Diff] Stat Lab 06/22/24 19:20 Completed CMP [Comprehensive Metabolic Panel] Stat Lab 06/22/24 19:20 Completed Magnesium Stat Lab 06/22/24 19:20 Completed VBG [Venous Blood Gas] Stat RT 06/22/24 19:20 Completed Medical Decision Narrative: 84-year-old female history of hypertension, hyperlipidemia, CKD, end-stage multiple myeloma currently on hospice presenting with elevated potassium. Patient has no symptoms. Labs were drawn at nursing facility and potassium was elevated, so she was sent here. History was obtained via conversation with patient and EMS. On arrival, patient hemodynamically stable, alert, oriented x4, appropriate, GCS 15, moving all extremities spontaneously, pupils equal and reactive to light. Full physical exam performed and significant for chronically ill-appearing female no acute distress. Dry mucous membranes. Cardiac exam normal, no lower extremity edema. Lungs are clear. Abdomen soft, nontender. Differential includes lab draw abnormality, CULLEN on CKD, endocrinologic abnormality, among others. Patient placed on continuous cardiac monitoring and continuous pulse ox with initial blood pressure 121/63, heart rate 86, saturation 99% on 2 L nasal cannula. Independent interpretation of EKG shows sinus rhythm 3 bpm with [place] 191, QRS 86, QTc 415. Normal axis. No acute ischemic change. No hyperkalemic change. Patient was given fluids and Lokelma, Lasix for symptomatic management and correction of underlying abnormalities. Workup independently interpreted and significant for nonactionable CBC. Patient's chemistry with hyperkalemia of 6.0 and prerenal CULLEN with creatinine of 4 and BUN of 72. After labs, patient given another liter of fluids, since she had already received Lasix. After second liter of fluid, patient nontachycardic, normotensive. Given patient presentation, workup, history, this most likely represents prerenal CULLEN and dehydration with associated hyperkalemia. Because patient at baseline without signs or symptoms of clinical decompensation, deemed appropriate for discharge. Results were relayed to patient who voiced understanding and were agreeable to outpatient management and follow up. I discussed my clinical impression with patient and answered all questions. At this time, the evidence for any other entities in the differential is insufficient to warrant any further testing or ED observation. This was explained as well. Advisory was given that persistent or worsening symptoms require further evaluation. I confirmed the understanding of this discussion. Close outpatient follow-up will be needed with labs, etc. To be sent home with Lokelma to prevent further hyperkalemia. [place] disclaimer Much of this encounter note is an electronic senior bi architect spoken language to printed text. Electronic senior bi architect of the spoken language may permit errors. Although I have reviewed the note, some errors may still exist. Critical Care Critical Care Time Critical Care Time: No
[2024-06-22 19:36] LABS: Lactate Venous 0.9 mmol/L (0.4-2.0); VBG Base Excess -10.1 mmol/L (-2.4-2.3); VBG HCO3 16.5 mmol/L (23-30); VBG Oxygen Saturation 87.6 % (50-70); VBG PCO2 34.7 mmol/L (35-51); VBG PH 7.29 mmol/L (7.31-7.41); VBG PO2 59.6 mmol/L (28-40); VBG Total CO2 17.5 mmol/L (23-27)
[2024-06-22 19:37] LABS: Basophils # 0.1 K/mm3 (0-0.2); Basophils % 0.7 % (0.1-2.0); Eosinophils % 0.6 % (0.1-12.0); Hematocrit 26.4 % (37.0-47.0); Hemoglobin 8.5 g/dL (12.2-16.2); Lymphocytes # 1.2 K/mm3 (0.7-4.5); Lymphocytes % 16.6 % (10-50); Mean Corpuscular HGB Conc 32.2 g/dL (31.8-35.4); Mean Corpuscular Hemoglobin 32.2 pg (27.0-31.2); Mean Platelet Volume 9.6 fl (7.4-10.4); Monocytes # 0.6 K/mm3 (0.1-1.0); Monocytes % 7.8 % (1.7-9.3); Neutrophils # 5.3 K/mm3 (1.8-7.8); Neutrophils % 73.9 % (37.0-80.0); Platelet Count 174 K/mm3 (142-424); Red Blood Count 2.64 M/mm3 (4.20-5.40); Red Cell Distribution Width 14.6 % (11.5-17.5); White Blood Count 7.2 K/mm3 (4.8-10.8)
[2024-06-22 19:44] LABS: Chloride 102 mmol/L (98-107); Sodium 135 mmol/L (136-145)
[2024-06-22 19:47] LABS: Alanine Aminotransferase 11 U/L (12-78); Albumin/Globulin Ratio 0.8 (1.1-1.8); Alkaline Phosphatase 78 U/L (38-126); Aspartate Amino Transferase 23 U/L (14-36); Bilirubin,Total 0.4 mg/dl (0.2-1.3); Blood Urea Nitrogen 72 mg/dl (7-17); Calcium 7.6 mg/dl (8.4-10.2); Carbon Dioxide 19 mmol/L (22.0-30.0); Creatinine Clearance Estimated 12 mL/min (50-200); Estimated Glomerular Filt Rate 11 ml/min (>60); GFR (African American) 13 ML/MIN (>60); Globulin 3.7 g/dL (1.3-3.2); Glucose 74 mg/dl (74-100); Total Protein,Serum 6.7 g/dl (6.3-8.2)
[2024-06-22 19:48] LABS: Magnesium 2.2 mg/dl (1.6-2.3)
[2024-06-22] MEDS: LOKELMA 5GM PACKET 10 GM PO (19:48)
[2024-06-22] MEDS: LACTATED RINGERS 1000ML 1,000 ML 999 ML IV ×2 (19:48→20:12)
--- NOTE | 2024-06-22 20:06 | PC.NURSE ---
Spoke with Kayley, exploration manager RN at [facility]. Informed of patient status, and plan of care at this time. Patient to be ultimately discharged back to nursing facility after labs and medications given.
[2024-06-22] MEDS: FUROSEMIDE 40MG/4ML VIAL 40 MG IV (20:08)
--- NOTE | 2024-06-22 20:40 | PC.NURSE ---
rounded on pt, pt lying in bed at this time. connected to vitals and call light within reach of pt.
--- NOTE | 2024-06-22 21:12 | PC.NURSE ---
Patient repositioned in bed and positioned to comfort. Patient complains of back pain. MD aware. awaiting new orders.
[2024-06-22] MEDS: OXYCODONE 5MG IMMEDIATE RELEASE TABLET 5 MG PO (21:30)
--- NOTE | 2024-06-22 22:09 | PC.NURSE ---
pt has been cleaned up and linen changed at this time. pt does not need anything and call light is within reach of pt.
--- NOTE | 2024-06-22 22:10 | PC.NURSE ---
Patient's brief was changed. Patient was adjusted in bed. No further requests at this time.
--- NOTE | 2024-06-22 22:20 | PC.NURSE ---
Report called to [facility] and spoke with DAYANA Larkin. Transportation to be notified at 2230 for patient return to nursing facility.
== END 2024-06-22 22:56 | disposition home or self-care (01) ==
PROVIDERS: Emergency Provider Emergency Medicine
DX: E87.5 Hyperkalemia (principal); N17.9 Acute kidney failure, unspecified
CPT/HCPCS: 80053; 82803; 83735; 85025; 93005; 96365; 96366; 96374; 99283; J1940; J7120